=== PATIENT | female | born 1955 | race Caucasian/White ===

== ENCOUNTER 2020-07-04 15:02 | Outpatient (CLI) | payer MEDICARE, SELFPAY ==
--- NOTE | ~2020-07-04 | XR_ITS ---
EXAMINATION: XR knee LT 3V DATE: 07/04/2020 16:19 INDICATION: Left knee pain. TECHNIQUE: 3 views of left knee were obtained. COMPARISON: None. FINDINGS: Bone alignment is normal. No fracture. There is mild tricompartmental osteoarthritis. No kn ee joint effusion. IMPRESSION: 1. Mild left knee osteoarthritis. Reviewed, dictated and finalized at location A.
--- NOTE | ~2020-07-04 | US_ITS ---
US venous doppler [facility] DATE: 07/04/2020 15:41 INDICATION: Leg pain TECHNIQUE: Real-time and color flow imaging and Doppler analysis of the veins of both lower extremiti es COMPARISON: None FINDINGS: The greater saphenous veins are patent. There is spontaneous and phasic flow and normal aug mentation and color flow signal and normal compression of the deep veins of both lower extremities. IMPRESSION: No evidence of deep venous thrombosis of either leg Reviewed, dictated and finalized at Location A. Reviewed, dictated and finalized at location A.
== END 2020-07-04 15:03 | disposition home or self-care (01) ==
PROVIDERS: PCP Family Medicine; Visit Provider Nurse Practitioner Family
DX: M17.12 Unilateral primary osteoarthritis, left knee (principal)
CPT/HCPCS: 73562; 93970

== ENCOUNTER 2020-08-09 15:01 | Inpatient (IN) | payer MEDICARE, SELFPAY ==
--- NOTE | ~2020-08-09 | CT_ITS ---
EXAMINATION: CT abdomen pelvis wo con EXAM DATE: 08/09/2020 12:59 INDICATION: Stabbing abdominal pain for several weeks. TECHNIQUE: Spiral CT of the abdomen and pelvis was performed without contrast. Axial, coronal and s agittal images were reviewed. The dose-length product (DLP) for this examination was 845.83 mGy-cm. The exposure was tailored according to patient size (auto mA exposure control), and iterative recons truction (ASIR) was used as additional dose reduction technique. There is no prior study for compari son. FINDINGS: The liver, spleen, adrenal glands and pancreas are unremarkable. There are cholecystectomy clips. Bilateral calyceal stones measuring up to 8 mm on the left, 6 mm on the right. The uterus i s not identified and has likely been surgically resected. The bladder is unremarkable. There is no retroperitoneal or pelvic lymphadenopathy. There are several small supraumbilical fat-containing he rnias. The appendix is normal. The stomach and small bowel are unremarkable. There is mild to moderate scat tered colonic diverticulosis. There is no adjacent inflammatory change to suggest diverticulitis. N o free intraperitoneal gas. The heart is normal in size. There are no pericardial or pleural effus ions. The lung bases are unremarkable. The bones are unremarkable. IMPRESSION: 1. Several small supraumbilical fat-containing hernias. 2. Bilateral nonobstructing calyceal stones. 3. Mild to moderate scattered colonic diverticulosis. Reviewed, dictated and finalized at location B.
--- NOTE | ~2020-08-09 | US_ITS ---
EXAMINATION: US renal BI DATE: 08/09/2020 17:09 INDICATION: Acute renal failure TECHNIQUE: Multiple grayscale and Doppler ultrasound images of the kidneys were obtained. COMPARISON: CT from today FINDINGS: The right kidney measures 11.2 x 4.6 x 5.3 cm. The left kidney measures 9.9 x 3.8 x 5.6 cm. The kidneys demonstrate normal parenchymal echogenicity. Nonobstructing stones are noted in the left kidney. There is no hydronephrosis. The bladder is incompletely distended. IMPRESSION: 1. No sonographic correlate for the patient's symptoms. 2. Nonobstructing left nephrolithiasis. Reviewed, dictated and finalized at location A.
--- NOTE | ~2020-08-09 | XR_ITS ---
EXAMINATION: XR chest 2V DATE: 08/09/2020 17:11 INDICATION: Sepsis, history of hypertension TECHNIQUE: PA and lateral views of the chest are obtained. COMPARISON: 03/31/2012 FINDINGS: The lungs are free of acute opacities. There is no pleural effusion or pneumothorax. The ca rdiomediastinal silhouette is normal. There is mild thoracic spondylosis. Cholecystectomy clips are n oted in the right upper quadrant. IMPRESSION: 1. No acute cardiopulmonary abnormality. Reviewed, dictated and finalized at location A.
[2020-08-09 12:47] LABS: Estimated Glomerular Filt Rate 10
[2020-08-09 12:47] LABS: Estimated Glomerular Filt Rate 10
[2020-08-09 14:11] LABS: Basophils Absolute Auto 0.1 K/mm3 (0.0-0.1); Basophils Percent Auto 0.9 % (0.2-1.2); Eosinophils Absolute Auto 0.2 K/mm3 (0-0.3); Eosinophils Percent Auto 1.5 % (0-4.4); Hematocrit 43.2 % (37.0-47.0); Hemoglobin 14.7 g/dL (12.0-15.0); Immature Granulocyte Absolute 0.06 K/mm3 (0.00-0.031); Immature Granulocyte Percent A 0.4 % (0-0.5); Lymphocytes Absolute Auto 4.88 K/mm3 (0.9-3.2); Lymphocytes Percent Auto 34.6 % (18.3-44.2); Mean Corpuscular Volume 88.2 fl (80-100); Mean Platelet Volume 10.1 fl (7.4-10.4); Monocytes Percent Auto 6.9 % (2.6-8.5); Neutrophils Absolute Auto 7.9 K/mm3 (1.3-6.7); Neutrophils Percent Auto 55.7 % (45.5-73.1); Platelet Count Result 337 k/mm3 (150-375); Red Cell Distribution Width 12.9 % (11.5-14.5); White Blood Count 14.1 K/mm3 (4.5-10.0)
[2020-08-09 14:26] LABS: Alanine Aminotransferase 26 U/L (4-35); Albumin Level 4.5 g/dL (3.5-5.1); Alkaline Phosphatase 54 U/L (38-126); Amylase 94 U/L (30-110); Anion Gap 16 mmol/L (8-16); Aspartate Amino Transferase 21 U/L (14-36); Bilirubin,Total 0.5 mg/dL (0.2-1.3); Blood Urea Nitrogen 50 mg/dL (7-17); Calcium 10.2 mg/dL (8.4-10.2); Carbon Dioxide 21 mmol/L (22-30); Chloride 100 mmol/L (98-107); Cholesterol 140 mg/dL (0-200); Estimated Glomerular Filt Rate 11; Glucose 117 mg/dL (65-105); HDL Direct 36 mg/dL; Lipase 280 U/L (23-300); Potassium 5.2 mmol/L (3.4-5.0); Sodium 137 mmol/L (137-145); Triglycerides 413 mg/dL (<150)
[2020-08-09 14:37] LABS: LDL Cholesterol Direct 53 mg/dL
--- NOTE | 2020-08-09 16:06 | ECG_ITS ---
Measurements Intervals [place] Rate: 83 P: 51 TN: 181 QRS: 25 QRSD: 76 T: 87 QT: 374 QTc: 441 Interpretive Statements SINUS RHYTHM CONSIDER ANTEROSEPTAL INFARCT, AGE INDETERMINATE NONSPECIFIC ST & T-WAVE ABNORMALITY- HIGH LATERAL LEADS ABNORMAL ECG Electronically Signed On 08-10-2020 6:49:50 CDT by Aston Philippe D.O.
--- NOTE | 2020-08-09 16:09 | ADMGEN ---
This patient, Arlen Lomeli, was admitted to 2 Medical Room 259-01. Patient/family oriented to hospital policies and general routines including ID bracelet, bed and alarms, visiting hours, pain management, procedures, bathroom and other care routines, personal items, smoking policy, room service/diet, and visiting hours. Valuables list has been completed. Information on how to activate the Rapid Response Team has been discussed. Patient/Family are encouraged to report perceived risks to care and to ask questions if they do not understand what they are told or what they should do.
[2020-08-09 16:37] VITALS: BP 118/67; PULSE 98; RESP 20; TEMP 35.9; O2SAT 97
[2020-08-09 16:51] LABS: Creatine Kinase 62 U/L (30-135)
[2020-08-09 17:00] LABS: Lactic Acid Reflex 4.6 mmol/L (0.7-2.1)
[2020-08-09] MEDS: HYDROcodone/acetaminophen (*CRX) 5-325 MG TABLET 1 TAB PO ×2 (17:59→23:48)
[2020-08-09] MEDS: SODIUM CHLORIDE 0.9% IV 1,000 ML 999 ML IV CONT (18:00)
--- NOTE | 2020-08-09 18:13 | PM.IMHP ---
H&P: HPI History of Present Illness Date/Time: 08/09/20 18:13 Chief complaint: ABD PAIN,R10.9,E78.2,E11.65,F41.9;Acute Renal Fail Narrative: Arlen Lomeli is a 65 year old female Who stated that she has been having some nausea on and off for about 2 weeks. The patient stated that she does have acid reflux and she tried Pepcid [id number] and that did not seem to help. The patient stated that she is not sure that she has been keeping her pills down she said that his and she takes her pills she they would come right back up and she would vomit them up. Patient stated she has not had any problems with her kidneys in the past. She does have chronic back pain and does occasionally take Aleve. However she stated she has not taken any leave recently. She said that nothing was helping her at home and she decided to see her primary care doctor today. Her white count was noted to be 14.1 today. Potassium was slightly high at 5.2. Creatinine 4.1 BUN 50. Her estimated GFR is 11. It looks like previous creatinine was 1.3. Her last known A1c was 6.0 her lactic was found to be 4.6 today. Patient was empirically started on Zosyn. Chest x-ray from today was read as no acute cardiopulmonary abnormality. Renal ultrasound was read as no sonographic correlation for the patient's symptoms. Nonobstructing left nephrolithiasis. Abdominal CT was read as several small super umbilical fat containing hernias bilateral nonobstructing calyceal stone. Pers-oh-nqeuzbzw scattered colonic diverticulosis. Patient was a direct admit from Dr. William Bardales is office. Patient has not had any scopes or had a GI specialist in the past. The patient also states that she has a very anxious person. Date of service 08/09/2020 Review of Systems Review of Systems: All systems reviewed & are unremarkable except as noted in HPI and below Constitutional: Constitutional: Reports as per HPI and Reports no additional constitutional complaints Eyes: Eyes: Reports as per HPI and Reports no additional eye complaints ENT: Reports system reviewed and no additional complaints, except as documented and Reports Normal hearing present Cardiovascular: Cardiovascular: Reports no additional cardiovascular complaints Respiratory: Respiratory: Reports no additional respiratory complaints and Reports no additional respiratory complaints Gastrointestinal: Gastrointestinal: Reports as per HPI and Reports no additional gastrointestinal complaints Musculoskeletal: Musculoskeletal: Reports no additional musculoskeletal complaints Integumentary/Breasts: Skin/Breast: Reports system reviewed and no additional complaints, except as docu and Reports as per HPI Neurologic: Reports system reviewed and no additional complaints, except as documented, Reports as per HPI and Reports Normal hearing present Psychiatric: Psychiatric: Reports no additional psychiatric complaints and Reports as per HPI Endocrine: Endocrine: Reports no additional endocrine complaints Hematologic/Lymphatic: Hematologic/Lymphatic: Reports no additional hematologic/lymphatic complaints Allergic/Immunologic: Allergic/Immunologic: Reports no additional allergic/immunologic complaints [facility] Past Medical History Medical History (Updated 08/09/20 @ 18:31 by Brittany Landa NP) Anxiety disorder, unspecified ARF (acute renal failure) on chronic Cervical radiculopathy Chronic right-sided low back pain with right-sided sciatica Essential (primary) hypertension Mixed hyperlipidemia Obesity (BMI 30.0-34.9) Type 2 diabetes mellitus with hyperglycemia Surgical History Surgical History (Updated 08/09/20 @ 18:22 by Brittany Landa NP) History of angioplasty of vein right leg History of appendectomy History of section, classical History of fusion of cervical spine History of partial hysterectomy History of tonsillectomy Hx of cholecystectomy Family History Family History (Updated 08/09/20 @ 18:25 by Rima
[2020-08-09 18:51] LABS: Glucose Point of Care 100 (65-105)
[2020-08-09] MEDS: SODIUM CHLORIDE 0.9% IV 1,000 ML 100 ML IV CONT (19:22)
[2020-08-09] MEDS: GABAPENTIN 300 MG CAPSULE PO (19:23)
[2020-08-09 19:37] LABS: Reflex Lactic Acid Yes or No Add Lactic
[2020-08-09 19:58] LABS: Add Urine Microscopic? YES; Appearance Urine Cloudy (Clear); Bacteria Urine Trace /hpf; Bilirubin Urine Negative (Negative); Blood Urine Negative (Negative); Color Urine Yellow (Yellow); Glucose Urine UA Negative (Negative); Ketones Urine Negative (Negative); Leukocyte Esterase Ur 1+ LEU/UL (NEGATIVE); Mucus Urine Rare /lpf; Nitrate Urine Negative (Negative); Protein Urine 3+ mg/dL (Negative); Specific Grav Ur 1.014 (1.001-1.035); Squamous Epithelial Cell Urine Many /hpf (Few); Urobilinogen Urine Negative mg/dL (<2.0); WBC Urine 31-50 /hpf (0-3)
[2020-08-09 20:00] VITALS: BP 125/74; PULSE 79; RESP 20; TEMP 36.6; O2SAT 96
[2020-08-09 20:09] LABS: Lactic Acid 2.3 mmol/L (0.7-2.1)
[2020-08-09 20:32] LABS: Sodium Urine Random 33 meq/L
[2020-08-09] MEDS: HEPARIN SODIUM 5,000 UNITS/ML VIAL 5000 UNITS SUB-Q (20:38)
[2020-08-09] MEDS: NICOTINE (*PBKC) 14 MG PATCH 1 PATCH TRANSDERM (20:39)
[2020-08-09] MEDS: FAMOTIDINE 20 MG/2 ML VIAL IV PUSH (20:39)
[2020-08-10] VITALS (7 sets, daily range): BP systolic 120–142; BP diastolic 64–91; PULSE 77–94; RESP 14–20; TEMP 36.4–36.9; O2SAT 96–100; BMI 34.5
[2020-08-10] MEDS: HEPARIN SODIUM 5,000 UNITS/ML VIAL 5000 UNITS SUB-Q ×3 (05:39→21:14)
[2020-08-10 06:22] LABS: Basophils Absolute Auto 0.1 K/mm3 (0.0-0.1); Basophils Percent Auto 0.9 % (0.2-1.2); Eosinophils Absolute Auto 0.2 K/mm3 (0-0.3); Eosinophils Percent Auto 2.1 % (0-4.4); Hematocrit 34.4 % (37.0-47.0); Hemoglobin 11.5 g/dL (12.0-15.0); Immature Granulocyte Absolute 0.02 K/mm3 (0.00-0.031); Immature Granulocyte Percent A 0.2 % (0-0.5); Lymphocytes Absolute Auto 5.74 K/mm3 (0.9-3.2); Lymphocytes Percent Auto 51.2 % (18.3-44.2); Mean Corpuscular HGB Conc 33.4 g/dl (32-36); Mean Corpuscular Hemoglobin 29.8 pg (26-34); Mean Corpuscular Volume 89.1 fl (80-100); Mean Platelet Volume 10.2 fl (7.4-10.4); Monocytes Absolute Auto 0.7 K/mm3 (0.1-0.6); Monocytes Percent Auto 6.1 % (2.6-8.5); Neutrophils Absolute Auto 4.4 K/mm3 (1.3-6.7); Neutrophils Percent Auto 39.5 % (45.5-73.1); Platelet Count Result 265 k/mm3 (150-375); Red Blood Count 3.86 M/mm3 (4.2-5.4); White Blood Count 11.2 K/mm3 (4.5-10.0)
[2020-08-10 06:38] LABS: Albumin Level 3.6 g/dL (3.5-5.1); Anion Gap 11 mmol/L (8-16); Blood Urea Nitrogen 50 mg/dL (7-17); Calcium 8.7 mg/dL (8.4-10.2); Carbon Dioxide 20 mmol/L (22-30); Chloride 104 mmol/L (98-107); Estimated Glomerular Filt Rate 13; Glucose 89 mg/dL (65-105); Magnesium 1.4 mg/dL (1.6-2.3); Phosphorus 5.3 mg/dL (2.5-4.5); Potassium 4.3 mmol/L (3.4-5.0); Sodium 135 mmol/L (137-145)
[2020-08-10] MEDS: SODIUM CHLORIDE 0.9% IV 1,000 ML 100 ML IV CONT ×2 (07:29→19:22)
[2020-08-10] MEDS: MAGNESIUM SULF 2 GM/WATER 50ML 2 GM/50 ML BAG IVPB (08:44)
[2020-08-10] MEDS: FAMOTIDINE 20 MG/2 ML VIAL IV PUSH ×2 (08:46→21:14)
[2020-08-10] MEDS: GABAPENTIN 300 MG CAPSULE PO ×3 (08:50→16:19)
[2020-08-10] MEDS: ROSUVASTATIN 10 MG TABLET 40 MG PO (08:50)
[2020-08-10] MEDS: DULoxetine HCL 60 MG CAPSULE.DR PO (08:50)
[2020-08-10] MEDS: METOPROLOL SUCCINATE EXT REL 100 MG TABCR 200 MG PO (08:50)
[2020-08-10 09:36] LABS: Glucose Point of Care 90 (65-105)
[2020-08-10 14:03] LABS: Glucose Point of Care 118 (65-105)
--- NOTE | 2020-08-10 14:08 | PM.IMPN ---
Progress Note: A&P Assessment and Plan (1) ARF (acute renal failure): Code(s): N17.9 - Acute kidney failure, unspecified Status: Acute Assessment and Plan: Patient directly admitted from PCP office due to elevated Cr on outpatient labs. Cr 4.3 yesterday, now improved to 3.6 today. Suspect related to dehydration from recent nausea and vomiting. Renal ultrasound shows no sonographic evidence to correlate for the patient's symptoms. Ultrasound shows nonobstructing left nephrolithiasis. Improving. Continue IV hydration and trend renal function. (2) UTI (urinary tract infection): Code(s): N39.0 - Urinary tract infection, site not specified Status: Suspected Assessment and Plan: Abnormal urinalysis. Patient is asymptomatic. She was empirically started on Zosyn for possible UTI. Will continue abx while awaiting urine and blood cultures. (3) Abdominal pain: Code(s): R10.9 - Unspecified abdominal pain Status: Acute Assessment and Plan: Patient reports diffuse stabbing abdominal pain x2 weeks. She reports she vomits after trying to eat or drink anything, even bland foods or just taking her medications. She denies having similar symptoms in the past. Differential includes gastritis, PUD, gastroparesis. Has never had colonoscopy. She is improving with zofran and pepcid. Continue these and appreciate GI consultation given duration of symptoms; could consider EGD either now or on outpatient basis if appropriate. (4) Anxiety disorder, unspecified: Code(s): F41.9 - Anxiety disorder, unspecified Status: Chronic Assessment and Plan: Stable. Continue home xanax. (5) Cervical radiculopathy: Code(s): M54.12 - Radiculopathy, cervical region Status: Chronic Assessment and Plan: Continue her home regimen with gabapentin and norco. (6) Mixed hyperlipidemia: Code(s): E78.2 - Mixed hyperlipidemia Status: Chronic Assessment and Plan: Continue home statin. (7) Type 2 diabetes mellitus with hyperglycemia: Qualifiers: Diabetes mellitus intermediate insulin use: without intermediate use Qualified Code(s): E11.65 - Type 2 diabetes mellitus with hyperglycemia Code(s): E11.65 - Type 2 diabetes mellitus with hyperglycemia Status: Acute Assessment and Plan: A1c 6.0. Metformin held due to renal function. Monitor with accu-cheks and adjust treatment as needed. (8) Essential (primary) hypertension: Code(s): I10 - Essential (primary) hypertension Status: Chronic Assessment and Plan: BP stable, continue home metoprolol. CHRISTIAN held due to renal function. Monitor BP and adjust treatment as needed. Subjective Date/time seen: 08/10/20 0930 Interval history: Ms. Lomeli is a 65yo F admitted for acute renal failure. She has had sharp/stabbing diffuse abdominal pain over the last 2 weeks with associated vomiting with practically any oral intake - food, liquids, even just medications. Has vomited almost daily x 2 weeks. She is feeling a bit improved and has not vomited now since arrival, would like to try eating today. She denies hematemesis, hematochezia or melena. Smoker, denies alcohol use in several months and no illicit substance use. Last BM was yesterday and loose, which she describes is chronic for her. She denies chest pain or shortness of breath. Review of Systems Review of Systems: All systems reviewed & are unremarkable except as noted in HPI and below Exam Narrative: Exam Narrative: General: Female resting comfortably sitting up in bed in no acute distress.
[2020-08-10] MEDS: HYDROcodone/acetaminophen (*CRX) 5-325 MG TABLET 1 TAB PO (16:17)
[2020-08-10 17:53] LABS: Lactic Acid Reflex 0.7 mmol/L (0.7-2.1)
[2020-08-10 18:52] LABS: Glucose Point of Care 102 (65-105)
[2020-08-10 21:19] LABS: Glucose Point of Care 110 (65-105)
[2020-08-11] VITALS (7 sets, daily range): BP systolic 120–147; BP diastolic 71–84; PULSE 70–84; RESP 14–16; TEMP 36.3–36.9; O2SAT 95–98
[2020-08-11] MEDS: SODIUM CHLORIDE 0.9% IV 1,000 ML 100 ML IV CONT ×2 (05:33→17:55)
[2020-08-11] MEDS: HEPARIN SODIUM 5,000 UNITS/ML VIAL 5000 UNITS SUB-Q ×3 (05:34→21:06)
[2020-08-11 06:05] LABS: Basophils Absolute Auto 0.1 K/mm3 (0.0-0.1); Basophils Percent Auto 1.1 % (0.2-1.2); Eosinophils Absolute Auto 0.2 K/mm3 (0-0.3); Eosinophils Percent Auto 2.6 % (0-4.4); Hematocrit 33.5 % (37.0-47.0); Hemoglobin 11.3 g/dL (12.0-15.0); Immature Granulocyte Absolute 0.03 K/mm3 (0.00-0.031); Immature Granulocyte Percent A 0.3 % (0-0.5); Lymphocytes Absolute Auto 3.44 K/mm3 (0.9-3.2); Mean Corpuscular HGB Conc 33.7 g/dl (32-36); Mean Corpuscular Hemoglobin 29.7 pg (26-34); Mean Corpuscular Volume 87.9 fl (80-100); Mean Platelet Volume 10.2 fl (7.4-10.4); Monocytes Absolute Auto 0.6 K/mm3 (0.1-0.6); Monocytes Percent Auto 7.3 % (2.6-8.5); Neutrophils Absolute Auto 4.4 K/mm3 (1.3-6.7); Neutrophils Percent Auto 49.7 % (45.5-73.1); Platelet Count Result 249 k/mm3 (150-375); Red Blood Count 3.81 M/mm3 (4.2-5.4); Red Cell Distribution Width 12.7 % (11.5-14.5); White Blood Count 8.8 K/mm3 (4.5-10.0)
[2020-08-11 06:29] LABS: Alanine Aminotransferase 16 U/L (4-35); Albumin Level 3.3 g/dL (3.5-5.1); Alkaline Phosphatase 40 U/L (38-126); Anion Gap 8 mmol/L (8-16); Aspartate Amino Transferase 20 U/L (14-36); Bilirubin,Total 0.4 mg/dL (0.2-1.3); Blood Urea Nitrogen 42 mg/dL (7-17); Calcium 8.7 mg/dL (8.4-10.2); Carbon Dioxide 20 mmol/L (22-30); Chloride 110 mmol/L (98-107); Estimated CRCL calculation 14 ml/min; Estimated Glomerular Filt Rate 13; Glucose 92 mg/dL (65-105); Potassium 4.4 mmol/L (3.4-5.0); Sodium 138 mmol/L (137-145)
[2020-08-11 08:07] LABS: Glucose Point of Care 96 (65-105)
[2020-08-11] MEDS: ROSUVASTATIN 10 MG TABLET 40 MG PO (09:04)
[2020-08-11] MEDS: HYDROcodone/acetaminophen (*CRX) 5-325 MG TABLET 1 TAB PO ×2 (09:04→21:17)
[2020-08-11] MEDS: DULoxetine HCL 60 MG CAPSULE.DR PO (09:04)
[2020-08-11] MEDS: GABAPENTIN 300 MG CAPSULE PO ×3 (09:04→16:37)
[2020-08-11] MEDS: FAMOTIDINE 20 MG/2 ML VIAL IV PUSH ×2 (09:05→21:06)
[2020-08-11] MEDS: METOPROLOL SUCCINATE EXT REL 100 MG TABCR 200 MG PO (09:06)
[2020-08-11] MEDS: NICOTINE (*PBKC) 14 MG PATCH 1 PATCH TRANSDERM (09:07)
--- NOTE | 2020-08-11 09:33 | WPDGICN ---
Assessment and Plan Assessment and plan (1) Abdominal pain: Code(s): R10.9 - Unspecified abdominal pain Status: Acute Assessment and Plan: Noticed mostly in the epigastric and mildly in the left lower quadrant. Initially suspect this may be related to urinary tract infection however because of epigastric location to the pain. EGD can be performed electively. Should patient remain hospitalized we will consider this early next week. Continuing patient on proton pump inhibitor peers prudent at the present time period (2) ARF (acute renal failure): Code(s): N17.9 - Acute kidney failure, unspecified Status: Acute Assessment and Plan: Patient has significant azotemia with marked elevation of serum creatinine identified. Need to consider this related to dehydration associated with her nausea vomiting and poor oral intake. Should this fail to improve underlying renal dysfunction will be evaluated. (3) UTI (urinary tract infection): Code(s): N39.0 - Urinary tract infection, site not specified Status: Suspected Assessment and Plan: Patient appears to have a urinary tract infection which may have precipitated her nausea vomiting. Currently on treatment of antibiotics this will be monitored. (4) Anxiety disorder, unspecified: Code(s): F41.9 - Anxiety disorder, unspecified Status: Chronic GI Consult Note Consult date/time: 08/11/20 09:33 HPI: Areln Lomeli is a 65 year old female I am asked to see because of abdominal pain associated with nausea vomiting. Patient states this is developed over the last 2 weeks. She states her abdomen is diffusely tender period and she has had significant nausea vomiting. Upon presenting emergency room was found to have significant azotemia with elevated creatinine. She also was found to have a urinary tract infection. She states the nausea vomiting is improved since admission but she continued to have modest tenderness that is improving in the epigastric area. Patient has a past medical history of anxiety disorders well as diabetes. Review of Systems Review of Systems: All systems reviewed & are unremarkable except as noted in HPI and below PMFSH Past Medical History Medical History Anxiety disorder, unspecified ARF (acute renal failure) on chronic Cervical radiculopathy Chronic right-sided low back pain with right-sided sciatica Essential (primary) hypertension Mixed hyperlipidemia Obesity (BMI 30.0-34.9) Type 2 diabetes mellitus with hyperglycemia Surgical History Surgical History History of angioplasty of vein right leg History of appendectomy History of section, classical History of fusion of cervical spine History of partial hysterectomy History of tonsillectomy Hx of cholecystectomy Family History Family History (Updated 08/09/20 @ 18:25 by Brittany Landa NP) Father Hypertension Cerebrovascular accident Mother Hypertension Cerebrovascular accident Sibling Cancer Social History Social History (Updated 08/09/20 @ 18:25 by Brittany Landa NP) Social History: the patient told me that she smokes every day. She is to [place] who is her durable power insurance defense attorney for healthcare. She has 2 children. She is on disability. She stated that she wants to be a DNR we had long discussion about what a DNR is in again she reiterated that she wants to be a DNR. The patient continues to smoke 1 pack a cigarettes a day for many years. She does not drink any alcohol. She does not use any illicit drugs or marijuana. Smoking status: Current every day smoker Second hand tobacco smoke exposure: No Alcohol intake: current Drinks per week: 1 Substance use type: marijuana Other substance usage details: Medical Marijuana edibles Gender identity (if verbalized by the patient): Female Sexua
--- NOTE | 2020-08-11 09:54 | PM.IMPN ---
Progress Note: A&P Assessment and Plan (1) ARF (acute renal failure): Qualifiers: Acute renal failure type: unspecified Qualified Code(s): N17.9 - Acute kidney failure, unspecified Code(s): N17.9 - Acute kidney failure, unspecified Status: Acute Assessment and Plan: Patient directly admitted from PCP office due to elevated Cr on outpatient labs. Cr 4.3 on arrival, improved to 3.6 but unfortunately no further improvement in renal function today. Unsure of chronicity without recent labs for comparison. Cr in 11/2018 was 1.3. Suspect in part related to dehydration from recent nausea and vomiting, could be superimposed on undiagnosed chronic kidney disease. Renal ultrasound shows no sonographic evidence to correlate for the patient's symptoms. Ultrasound shows nonobstructing left nephrolithiasis. Continue IV hydration for now and trend renal function. With Cr still at 3.6 this morning, will appreciate nephrology consultation in this setting. (2) UTI (urinary tract infection): Qualifiers: Urinary tract infection type: acute cystitis Hematuria presence: without hematuria Qualified Code(s): N30.00 - Acute cystitis without hematuria Code(s): N39.0 - Urinary tract infection, site not specified Status: Ruled-out Assessment and Plan: Abnormal urinalysis. Patient is asymptomatic. She was empirically started on Zosyn for possible UTI. Urine culture does not identify any pathogens and the patient is asymptomatic thus will discontinue antibiotics at this time. (3) Abdominal pain: Qualifiers: Abdominal location: periumbilical Qualified Code(s): R10.33 - Periumbilical pain Code(s): R10.9 - Unspecified abdominal pain Status: Acute Assessment and Plan: Patient reports diffuse stabbing abdominal pain x2 weeks. She reports she vomits after trying to eat or drink anything, even bland foods or just taking her medications. She denies having similar symptoms in the past. Differential includes gastritis, PUD, gastroparesis. Has never had colonoscopy. Continue zofran and pepcid. Appreciate GI consultation given duration of symptoms. (4) Supraumbilical hernia: Code(s): K43.9 - Ventral hernia without obstruction or gangrene Status: Chronic Assessment and Plan: Today patient localizes her pain in her periumbilical region with point tenderness to palpation. CT abdomen shows several small fat-containing supraumbilical hernias; do not appear to be strangulated or causing obstruction at this time. Given her history of incarcerated umbilical hernia requiring repair 10/22/2010, she may be appropriate to follow up with general surgery outpatient. (5) Anxiety disorder, unspecified: Qualifiers: Anxiety disorder type: unspecified anxiety disorder Qualified Code(s): F41.9 - Anxiety disorder, unspecified Code(s): F41.9 - Anxiety disorder, unspecified Status: Chronic Assessment and Plan: Stable. Continue home xanax. (6) Cervical radiculopathy: Code(s): M54.12 - Radiculopathy, cervical region Status: Chronic Assessment and Plan: Continue her home regimen with gabapentin and norco. (7) Mixed hyperlipidemia: Code(s): E78.2 - Mixed hyperlipidemia Status: Chronic Assessment and Plan: Continue home statin. (8) Type 2 diabetes mellitus with hyperglycemia: Qualifiers: Diabetes mellitus mcfp insulin use: without mcfp use Qualified Code(s): E11.65 - Type 2 diabetes mellitus with hyperglycemia Code(s): E11.65 - Type 2 diabetes mellitus with hyperglycemia Status: Acut
--- NOTE | 2020-08-11 11:11 | PM.CNNEP ---
Assessment and Plan Assessment and plan (1) ARF (acute renal failure): Qualifiers: Acute renal failure type: unspecified Qualified Code(s): N17.9 - Acute kidney failure, unspecified Code(s): N17.9 - Acute kidney failure, unspecified Status: Acute Assessment and Plan: Arlen has acute kidney injury. She has had nausea and vomiting and has been unable to keep anything down for the last 2 and half weeks. She is likely dehydrated. She is getting some IV fluids now. Her nausea is better. There might be some small chance that her nausea and vomiting was uremic and that this is chronic kidney disease and so we will have to watch how her creatinine behaves with the fluids as we rehydrate her. Her ultrasound did not show small scarred kidneys or much echogenicity so I think this is a little bit less likely. She may have some underlying chronic kidney disease as well as her creatinine was not completely normal back in November of 2018 but it is unclear what her condition was when that was drawn. The etiology of her chronic kidney disease would be diabetes hypertension and vascular disease most likely. If the creatinine does not return to normal we will do evaluation for other causes of chronic kidney disease. At this point continuing IV fluids is prudent. She will continue her rosuvastatin and her treatment of diabetes and hypertension. (2) Nausea and vomiting: Code(s): R11.2 - Nausea with vomiting, unspecified Status: Acute (3) Essential (primary) hypertension: Code(s): I10 - Essential (primary) hypertension Status: Chronic Assessment and Plan: Blood pressure is under good control (4) Type 2 diabetes mellitus with hyperglycemia: Qualifiers: Diabetes mellitus longterm insulin use: without intermediate manager use Qualified Code(s): E11.65 - Type 2 diabetes mellitus with hyperglycemia Code(s): E11.65 - Type 2 diabetes mellitus with hyperglycemia Status: Acute Assessment and Plan: on Accu-Cheks and sliding-scale insulin (5) Mixed hyperlipidemia: Code(s): E78.2 - Mixed hyperlipidemia Status: Chronic Assessment and Plan: on rosuvastatin (6) Nephrolithiasis: Code(s): N20.0 - Calculus of kidney Status: Acute Assessment and Plan: she will need evaluation for this but this can wait till she is an outpatient. History of Present Illness Reason for Consult Consult date: 08/11/20 Chief Complaint Chief complaint: ABD PAIN,R10.9,E78.2,E11.65,F41.9;Acute Renal Fail History of Present Illness Narrative: Arlen is a very pleasant 65-year-old lady who has diabetes, hypertension, kidney stones, chronic cigarette abuse, edema, neuropathy, and hyperlipidemia. The patient says that she was well until about 2 and half weeks ago when she started having nausea and vomiting. She had no blood in her vomit and no blood in her stools. She did not have diarrhea. She had no fevers or chills. She thought she just had the flu. Her tried to get her to come to the hospital several times during this time. And finally she went to see Dr. Abraham a couple of days before admission. He richie some blood in found that her creatinine was elevated so called her up in told her to come over to the hospital. In the ER she was evaluated and her creatinine was still high. She was felt to be dehydrated. She was given some IV fluids and admitted. She had some renal evaluation including an ultrasound which was unremarkable and with fluids she is feeling better but her creatinine has not come down very much so renal consultation was requested. The patient denies any bloody urine. She has no hemoptysis or epistaxis. No skin rash. No unusual joint pains other than large joints. No sores in her mouth or her loss. She has had hypertension for many years. It is been pretty well controlled. She has had diabetes for many ye
[2020-08-11 11:44] LABS: Creatine Kinase 63 U/L (30-135)
[2020-08-11 12:33] LABS: Glucose Point of Care 190 (65-105)
[2020-08-11 16:52] LABS: Glucose Point of Care 109 (65-105)
[2020-08-11 20:57] LABS: Creatinine Urine 37.6 mg/dL; Total Protein Urine Random 66 mg/dL
[2020-08-11 20:59] LABS: Sodium Urine Random 87 meq/L
[2020-08-11 21:30] LABS: Glucose Point of Care 118 (65-105)
[2020-08-12] VITALS (7 sets, daily range): BP systolic 118–160; BP diastolic 60–82; PULSE 70–83; RESP 14–18; TEMP 36.1–37.1; O2SAT 95–99
[2020-08-12] MEDS: SODIUM CHLORIDE 0.9% IV 1,000 ML 100 ML IV CONT ×2 (03:33→13:34)
[2020-08-12] MEDS: HEPARIN SODIUM 5,000 UNITS/ML VIAL 5000 UNITS SUB-Q ×2 (05:31→13:34)
[2020-08-12 07:07] LABS: Albumin Level 3.1 g/dL (3.5-5.1); Anion Gap 7 mmol/L (8-16); Blood Urea Nitrogen 31 mg/dL (7-17); Calcium 8.5 mg/dL (8.4-10.2); Carbon Dioxide 20 mmol/L (22-30); Chloride 113 mmol/L (98-107); Estimated CRCL calculation 16 ml/min; Estimated Glomerular Filt Rate 16; Glucose 97 mg/dL (65-105); Magnesium 1.9 mg/dL (1.6-2.3); Potassium 4.2 mmol/L (3.4-5.0); Sodium 140 mmol/L (137-145)
[2020-08-12 07:59] LABS: Glucose Point of Care 95 (65-105)
[2020-08-12] MEDS: ROSUVASTATIN 10 MG TABLET 40 MG PO (08:10)
[2020-08-12] MEDS: NICOTINE (*PBKC) 14 MG PATCH 1 PATCH TRANSDERM (08:11)
[2020-08-12] MEDS: FAMOTIDINE 20 MG/2 ML VIAL IV PUSH ×2 (08:11→20:05)
[2020-08-12] MEDS: GABAPENTIN 300 MG CAPSULE PO ×3 (08:11→16:55)
[2020-08-12] MEDS: DULoxetine HCL 60 MG CAPSULE.DR PO (08:11)
[2020-08-12] MEDS: METOPROLOL SUCCINATE EXT REL 100 MG TABCR 200 MG PO (08:12)
--- NOTE | 2020-08-12 08:54 | WPDGIPROGNO ---
Progress Note: A&P Additional Plan Patient much more comfortable today. Abdominal pain is improving. She continues to have some suprapubic tenderness. She is tolerating liquids with no additional nausea vomiting reported. Physical exam reveals patient to be alert. Comfortable at rest she is anicteric. Lungs are clear. Heart without murmur. Abdomen bowel sounds present soft minimal epigastric tenderness some suprapubic tenderness remains. Impression 1. Nausea vomiting now resolved. Likely related to azotemia. Cannot exclude a intra-abdominal process an EGD will be performed in tomorrow because of epigastric pain. 2. Epigastric pain improved greatly overnight. Patient remains on proton pump inhibitor. Azotemia. 3. Urinary tract infection. 4. Acute renal insufficiency. May be related to dehydration. Although uremia could contribute to her nausea and vomiting. Subjective Date/time seen: 08/12/20 08:54 Objective Data Vital Signs Vital Signs: Vital Signs - 24 hr 08/11/20 09:06 08/11/20 09:55 08/11/20 14:00 Temperature 97.6 F 97.5 F L Pulse Rate 70 77 73 Respiratory Rate 14 15 Blood Pressure 135/72 120/71 Pulse Oximetry 98 95 08/11/20 18:00 08/11/20 22:10 08/12/20 02:22 Temperature 98.0 F 98.4 F 98.2 F Pulse Rate 84 83 76 Respiratory Rate 15 16 16 Blood Pressure 147/77 H 140/81 144/75 H Pulse Oximetry 98 98 97 08/12/20 06:00 08/12/20 08:12 Temperature 97.0 F L Pulse Rate 82 70 Respiratory Rate 18 Blood Pressure 141/76 H Pulse Oximetry 97 Intake/Output Intake/Output: Intake & Output 08/09/20 08/10/20 08/11/20 08/12/20 23:59 23:59 23:59 23:59 Intake Total 1170 3690 3470 1450 Output Total 1750 2950 1250 Balance 1170 1940 520 200 Meds/Results Medications: Active Medications Generic Name Dose Route Start Last Admin Trade Name Freq PRN Reason Stop Dose Admin Acetaminophen 650 mg 08/09/20 15:57 Acetaminophen 325 Mg Tablet PO Q4H PRN Mild Pain (1-3) or Fever Hydrocodone Bitart/Acetaminophen 1 tab 08/09/20 19:25 08/11/20 21:17 Hydrocodone/Acetaminophen (*Crx) 5-325 Mg Tablet PO 1 tab Q6H PRN Administration Pain 4-10 Alprazolam 1 mg 08/09/20 16:47 Alprazolam (*Crx) 0.5 Mg Tablet PO TID PRN anxiety Dextrose 12.5 gm 08/09/20 16:01 Dextrose 50% 25 Gm/50 Ml Syringe IV PUSH PRN PRN Hypoglycemia Protocol Duloxetine HCl 60 mg 08/10/20 09:00 08/12/20 08:11 Duloxetine Hcl 60 Mg Capsule.Dr PO 60 mg DAILY VAHID Administration Famotidine 20 mg 08/09/20 21:00 08/12/20 08:11 Famotidine 20 Mg/2 Ml Vial IV PUSH 20 mg Q12HR VAHID Administration Gabapentin 300 mg 08/09/20 17:00 08/12/20 08:11 Gabapentin 300 Mg Capsule PO 300 mg TID VAHID Administration Glucagon 1 mg 08/09/20 16:01 Glucagon For Inj 1 Mg Vial IM PRN PRN Hypoglycemia Protocol Glucose 15 gm 08/09/20 16:01 Glucose Oral Gel 15 Gm Of Glucse In 37.5 Gm Tube PO PRN PRN Hypoglycemia Protocol Heparin Sodium (Porcine) 5,000 units 08/09/20 22:00 08/12/20 05:31 Heparin Sodium 5,000 Units/Ml Vial SUB-Q 5,000 units Q8HR VAHID Administration Sodium Chloride 1,000 mls @ 100 mls/hr 08/09/20 15:55 08/12/20 03:33 Normal Saline Iv IV CONT 100 mls/hr .Q10H VAHID Administration Dextrose 1,000 mls @ 100 mls/hr 08/09/20 16:01 Dextrose 5% 1,000 Ml IVPB PRN PRN Hypoglycemia Protocol Insulin Aspart 2 - 5 units 08/09/20 17:00 08/12/20 08:08 Insulin Aspart (*Bkc) 100 Units/Ml SUB-Q Not Given TIDWM VAHID Protocol Metoprolol Succinate 200 mg 08/10/20 09:00 08/12/20 08:12 Metoprolol Succinate Ext Rel 100 Mg Tabcr PO 200 mg DAILY VAHID Administration Nicotine 1 patch 08/10/20 09:00 08/12/20 08:11 Nicotine (*Pbkc) 14 Mg Patch TRANSDERM 1 patch QAM VAHID Administration Ondansetron HCl 4 mg 08/09/20 18:13 Ondansetron Inj 4 Mg/2 Ml Vial IV PUSH
--- NOTE | 2020-08-12 09:57 | PM.PNNEP ---
Progress Note: A&P Assessment and Plan (1) ARF (acute renal failure): Qualifiers: Acute renal failure type: unspecified Qualified Code(s): N17.9 - Acute kidney failure, unspecified Code(s): N17.9 - Acute kidney failure, unspecified Status: Acute Assessment and Plan: Arlen has acute kidney injury. no more nausea. She is getting some IV fluids now. Eating better. Her creatinine has come down to 3.0 will continue fluids 1 more day she probably has underlying chronic kidney disease as well. This does not seem to be severe as her renal ultrasound was normal. She does have some protein in the urine so probably has a mixture of diabetic and hypertensive kidney disease. Because have her peripheral vascular disease that we know about she probably has some of this in her kidneys as well. Will check other possibilities including glomerulonephritis and interstitial nephritis. (2) Nausea and vomiting: Code(s): R11.2 - Nausea with vomiting, unspecified Status: Acute (3) Essential (primary) hypertension: Code(s): I10 - Essential (primary) hypertension Status: Chronic Assessment and Plan: Blood pressure is under good control (4) Type 2 diabetes mellitus with hyperglycemia: Qualifiers: Diabetes mellitus terminal gauger supervisor insulin use: without terminal gauger supervisor use Qualified Code(s): E11.65 - Type 2 diabetes mellitus with hyperglycemia Code(s): E11.65 - Type 2 diabetes mellitus with hyperglycemia Status: Acute Assessment and Plan: on Accu-Cheks and sliding-scale insulin (5) Mixed hyperlipidemia: Code(s): E78.2 - Mixed hyperlipidemia Status: Chronic Assessment and Plan: on rosuvastatin (6) Nephrolithiasis: Code(s): N20.0 - Calculus of kidney Status: Acute Assessment and Plan: she will need evaluation for this but this can wait till she is an outpatient. Subjective Date/time seen: 08/12/20 09:57 Interval history: Arlen Is feeling better. No chest pain or shortness of breath eating well Review of Systems Cardiovascular: Cardiovascular: Reports no additional cardiovascular complaints Respiratory: Respiratory: Reports no additional respiratory complaints Gastrointestinal: Gastrointestinal: Reports no additional gastrointestinal complaints Genitourinary: Genitourinary: Reports no additional female genitourinary complaints Exam Narrative: Exam Narrative: WDWN in NAD skin no rash head ncat lungs clear cor reg no rub abd BS+ nontender and soft ext no edema. Objective Data Vital Signs Vital Signs: Vital Signs - 24 hr 08/11/20 14:00 08/11/20 18:00 08/11/20 22:10 Temperature 36.4 C L 36.7 C 36.9 C Pulse Rate 73 84 83 Respiratory Rate 15 15 16 Blood Pressure 120/71 147/77 H 140/81 Pulse Oximetry 95 98 98 08/12/20 02:22 08/12/20 06:00 08/12/20 08:12 Temperature 36.8 C 36.1 C L Pulse Rate 76 82 70 Respiratory Rate 16 18 Blood Pressure 144/75 H 141/76 H Pulse Oximetry 97 97 Intake/Output Intake/Output: Intake & Output 08/09/20 08/10/20 08/11/20 08/12/20 23:59 23:59 23:59 23:59 Intake Total 1170 3690 3470 1690 Output Total 1750 2950 1250 Balance 1170 1940 520 440 Meds/Results Medications: Active Medications Generic Name Dose Route Start Last Admin Trade Name Freq PRN Reason Stop Dose Admin Acetaminophen 650 mg 08/09/20 15:57 Acetaminophen 325 Mg Tablet PO Q4H PRN Mild Pain (1-3) or Fever Hydrocodone Bitart/Acetaminophen 1 tab 08/09/20 19:25 08/11/20 21:17 Hydrocodone/Acetaminophen (*Crx) 5-325 Mg Tablet PO 1 tab Q6H PRN Administration Pain 4-10 Alprazolam 1 mg 08/09/20 16:47 Alprazolam (*Crx) 0.5 Mg Tablet PO TID PRN anxiety Dextrose 12.5 gm 08/09/20 16:01 Dextrose 50% 25 Gm/50 Ml Syringe IV PUSH PRN PRN Hypoglycemia Protocol Duloxetine HCl 60 mg 08/10/20 0
[2020-08-12 11:25] LABS: Complement C3 94 mg/dL (88-165)
--- NOTE | 2020-08-12 12:47 | PM.IMPN ---
Progress Note: A&P Assessment and Plan (1) ARF (acute renal failure): Qualifiers: Acute renal failure type: unspecified Qualified Code(s): N17.9 - Acute kidney failure, unspecified Code(s): N17.9 - Acute kidney failure, unspecified Status: Acute Assessment and Plan: Patient directly admitted from PCP office due to elevated Cr on outpatient labs. Cr 4.3 on arrival, improved to 3.0 with some IV fluids. Unsure of chronicity without recent labs for comparison. Cr in 11/2018 was 1.3. Suspect in part related to dehydration from recent nausea and vomiting, could be superimposed on undiagnosed chronic kidney disease. Renal ultrasound shows no sonographic evidence to correlate for the patient's symptoms. Ultrasound shows nonobstructing left nephrolithiasis. Continue IV hydration for now and trend renal function. Appreciate Dr Ernandez's input. (2) UTI (urinary tract infection): Qualifiers: Urinary tract infection type: acute cystitis Hematuria presence: without hematuria Qualified Code(s): N30.00 - Acute cystitis without hematuria Code(s): N39.0 - Urinary tract infection, site not specified Status: Ruled-out Assessment and Plan: Abnormal urinalysis. Patient is asymptomatic. She was empirically started on Zosyn for possible UTI. Urine culture does not identify any pathogens and the patient is asymptomatic thus antibiotics were discontinued. (3) Abdominal pain: Qualifiers: Abdominal location: periumbilical Qualified Code(s): R10.33 - Periumbilical pain Code(s): R10.9 - Unspecified abdominal pain Status: Acute Assessment and Plan: Patient reports diffuse stabbing abdominal pain x2 weeks. She reports she vomits after trying to eat or drink anything, even bland foods or just taking her medications. No vomiting during this admission. She denies having similar symptoms in the past. Differential includes gastritis, PUD, gastroparesis. Has never had colonoscopy. Continue zofran and pepcid. Appreciate GI consultation given duration of symptoms. Plan is for EGD tomorrow. (4) Supraumbilical hernia: Code(s): K43.9 - Ventral hernia without obstruction or gangrene Status: Chronic Assessment and Plan: Today patient localizes her pain in her periumbilical region with point tenderness to palpation. CT abdomen shows several small fat-containing supraumbilical hernias; do not appear to be strangulated or causing obstruction at this time. Given her history of incarcerated umbilical hernia requiring repair 10/22/2010, she may be appropriate to follow up with general surgery outpatient. (5) Anxiety disorder, unspecified: Qualifiers: Anxiety disorder type: unspecified anxiety disorder Qualified Code(s): F41.9 - Anxiety disorder, unspecified Code(s): F41.9 - Anxiety disorder, unspecified Status: Chronic Assessment and Plan: Stable. Continue home xanax. (6) Cervical radiculopathy: Code(s): M54.12 - Radiculopathy, cervical region Status: Chronic Assessment and Plan: Continue her home regimen with gabapentin and norco. (7) Mixed hyperlipidemia: Code(s): E78.2 - Mixed hyperlipidemia Status: Chronic Assessment and Plan: Continue home statin. (8) Type 2 diabetes mellitus with hyperglycemia: Qualifiers: Diabetes mellitus alf insulin use: without alf use Qualified Code(s): E11.65 - Type 2 diabetes mellitus with hyperglycemia Code(s): E11.65 - Type 2 diabetes mellitus with hyperglycemia Status: Acute Assessment and Plan: A1c 6.0. Metformin
[2020-08-12 14:09] LABS: Glucose Point of Care 107 (65-105)
[2020-08-12 16:28] LABS: Glucose Point of Care 105 (65-105)
[2020-08-12] MEDS: HYDROcodone/acetaminophen (*CRX) 5-325 MG TABLET 1 TAB PO (20:04)
[2020-08-12 21:10] LABS: Glucose Point of Care 116 (65-105)
[2020-08-13] VITALS (11 sets, daily range): BP systolic 129–188; BP diastolic 78–101; PULSE 70–88; RESP 15–20; TEMP 36.2–37.1; O2SAT 92–99
[2020-08-13] MEDS: SODIUM CHLORIDE 0.9% IV 1,000 ML 100 ML IV CONT ×3 (00:13→20:29)
[2020-08-13 05:09] LABS: Erythrocyte Sedimentation Rate 3 mm/hr (0-20)
[2020-08-13 05:42] LABS: Hemoglobin 10.9 g/dL (12.0-15.0)
[2020-08-13 06:14] LABS: Albumin Level 3.1 g/dL (3.5-5.1); Anion Gap 7 mmol/L (8-16); Blood Urea Nitrogen 29 mg/dL (7-17); Calcium 8.5 mg/dL (8.4-10.2); Carbon Dioxide 19 mmol/L (22-30); Chloride 112 mmol/L (98-107); Estimated CRCL calculation 20 ml/min; Estimated Glomerular Filt Rate 19; Glucose 107 mg/dL (65-105); Phosphorus 4.3 mg/dL (2.5-4.5); Potassium 4.2 mmol/L (3.4-5.0); Sodium 138 mmol/L (137-145)
[2020-08-13 06:56] LABS: Magnesium 1.7 mg/dL (1.6-2.3)
[2020-08-13 07:44] LABS: Glucose Point of Care 113 (65-105)
--- NOTE | 2020-08-13 09:04 | PC.NURSE ---
The patient requested to know what time her EGD was going to be performed. I called the nurse from endoscopy and she stated that she did not have a time for the patient yet. I also asked the nurse what medications she would like me to give to the patient this morning and she requested that I give the patient her 0900 dose of Metoprolol and hold the other medications until she is back from the procedure.
[2020-08-13] MEDS: METOPROLOL SUCCINATE EXT REL 100 MG TABCR 200 MG PO (09:08)
[2020-08-13] MEDS: NICOTINE (*PBKC) 14 MG PATCH 1 PATCH TRANSDERM (09:09)
[2020-08-13] MEDS: ACETAMINOPHEN 325 MG TABLET 650 MG PO (09:23)
--- NOTE | 2020-08-13 09:40 | PM.IMPN ---
Progress Note: A&P Assessment and Plan (1) ARF (acute renal failure): Qualifiers: Acute renal failure type: unspecified Qualified Code(s): N17.9 - Acute kidney failure, unspecified Code(s): N17.9 - Acute kidney failure, unspecified Status: Acute Assessment and Plan: Patient directly admitted from PCP office due to elevated Cr on outpatient labs. Cr 4.3 on arrival, improved to 2.5 with some IV fluids. Unsure of chronicity without recent labs for comparison. Cr in 11/2018 was 1.3. Suspect now in part related to dehydration from recent nausea and vomiting, could be superimposed on undiagnosed chronic kidney disease. Renal ultrasound shows no sonographic evidence to correlate for the patient's symptoms. Ultrasound shows nonobstructing left nephrolithiasis. Continue IV hydration for now and trend renal function. Appreciate nephrology input. (2) UTI (urinary tract infection): Qualifiers: Urinary tract infection type: acute cystitis Hematuria presence: without hematuria Qualified Code(s): N30.00 - Acute cystitis without hematuria Code(s): N39.0 - Urinary tract infection, site not specified Status: Ruled-out Assessment and Plan: Abnormal urinalysis. Patient is asymptomatic. She was empirically started on Zosyn for possible UTI. Urine culture does not identify any pathogens and the patient is asymptomatic thus antibiotics were discontinued. (3) Abdominal pain: Qualifiers: Abdominal location: periumbilical Qualified Code(s): R10.33 - Periumbilical pain Code(s): R10.9 - Unspecified abdominal pain Status: Acute Assessment and Plan: Patient reports diffuse stabbing abdominal pain x2 weeks. She reports she vomits after trying to eat or drink anything, even bland foods or just taking her medications. No vomiting during this admission. She denies having similar symptoms in the past. Suspect she could have been vomiting due to uremia and abdominal pain could be secondary to vomiting. Continue zofran and pepcid. Appreciate GI consultation given duration of symptoms. EGD with Dr Gutierrez today is unremarkable. (4) Supraumbilical hernia: Code(s): K43.9 - Ventral hernia without obstruction or gangrene Status: Chronic Assessment and Plan: Yesterday patient localized her pain in her periumbilical region with point tenderness to palpation. CT abdomen shows several small fat-containing supraumbilical hernias; do not appear to be strangulated or causing obstruction at this time. Given her history of incarcerated umbilical hernia requiring repair 10/22/2010, she may be appropriate to follow up with general surgery outpatient. (5) Anxiety disorder, unspecified: Qualifiers: Anxiety disorder type: unspecified anxiety disorder Qualified Code(s): F41.9 - Anxiety disorder, unspecified Code(s): F41.9 - Anxiety disorder, unspecified Status: Chronic Assessment and Plan: Stable. Continue home xanax. (6) Cervical radiculopathy: Code(s): M54.12 - Radiculopathy, cervical region Status: Chronic Assessment and Plan: Continue her home regimen with gabapentin and norco. (7) Mixed hyperlipidemia: Code(s): E78.2 - Mixed hyperlipidemia Status: Chronic Assessment and Plan: Continue home statin. (8) Type 2 diabetes mellitus with hyperglycemia: Qualifiers: Diabetes mellitus intermediate insulin use: without intermediate use Qualified Code(s): E11.65 - Type 2 diabetes mellitus with hyperglycemia Code(s): E11.65 - Type 2 diabetes mellitus with hyperglycemia Status: Acute
--- NOTE | 2020-08-13 10:00 | PC.NURSE ---
Report was given to KATIE Hill in endoscopy. All questions were answered. Liz stated that they would be ready for the patient in 30 minutes.
--- NOTE | 2020-08-13 10:55 | PC.NURSE ---
To GI Lab per mela, IV saline locked. Report given to KATIE Hill.
[2020-08-13 11:18] LABS: Glucose Point of Care 101 (65-105)
--- NOTE | 2020-08-13 11:19 | WPDANESEPPF ---
Anes - Initial Pre Proc Eval Procedure: Operation Date: 08/13/20 12:00 Proposed Procedures p Esophagogastroduodenoscopy - Tam Gutierrez MD Date/Time: 08/13/20 11:19 Surgeon: YESENIA Chaves Pre Op Diagnosis: ABD PAIN,R10.9,E78.2,E11.65,F41.9;Acute Renal Fail Patient Data Age: 65 Gender: F Height: 5 ft Weight: 80.2 kg Last Vital Signs Temp 37.1 C 08/13/20 10:00 Pulse 79 08/13/20 10:00 Resp 19 08/13/20 10:00 BP 172/90 H 08/13/20 10:00 Pulse Ox 97 08/13/20 10:00 Allergies Allergy/AdvReac Type Severity Reaction Status Date / Time latex Allergy Intermediate Redness of Verified 08/13/20 11:19 Skin Home Medications Medication Instructions Recorded Confirmed Type furosemide 20 mg tablet 20 mg PO QAM #90 tablet 11/21/19 08/09/20 Rx metformin 1,000 mg tablet 1,000 mg PO BID #180 tablet 11/21/19 08/09/20 Rx benazepril 10 mg tablet 10 mg PO DAILY #90 tablet 04/19/20 08/09/20 Rx gabapentin 300 mg capsule 300 mg PO TID #270 cap 04/19/20 08/09/20 Rx rosuvastatin 40 mg tablet 40 mg PO DAILY #90 tablet 04/19/20 08/09/20 Rx semaglutide 1 mg/dose (2 mg/1.5 1 mg SUB-Q WEEKLY #3 ml 04/20/20 08/09/20 Rx mL) subcutaneous pen injector metoprolol succinate 100 mg 200 mg PO DAILY #180 tablet 05/19/20 08/09/20 Rx tablet,extended release 24 hr alprazolam 1 mg tablet 1 mg PO TID PRN #90 tablet 06/05/20 08/09/20 Rx hydrocodone 5 mg-acetaminophen 325 1 tablet PO Q6H PRN #30 tablet 06/13/20 08/09/20 Rx mg tablet duloxetine 60 mg PO DAILY 08/09/20 08/09/20 History Laboratory Tests 08/12/20 08/12/20 08/12/20 06:38 10:41 11:55 Hgb Hct ESR 3 mm/hr mm/hr (0-20) Sodium Potassium Chloride Carbon Dioxide Anion Gap BUN Creatinine Estim Creat Clear Calc Estimated GFR Glucose POC Capillary Glucose 107 mg/dl mg/dl (65-105) Calcium Phosphorus Magnesium Albumin Complement C3 94 mg/dL mg/dL (88-165) Complement C4 29.3 mg/dL mg/dL (14.0-44.0) 08/12/20 08/12/20 08/13/20 16:25 21:02 05:15 Hgb Hct ESR Sodium 138 mmol/L mmol/L (137-145) Potassium 4.2 mmol/L mmol/L (3.4-5.0) Chloride 112 mmol/L H mmol/L (98-107) Carbon Dioxide 19 mmol/L L mmol/L (22-30) Anion Gap 7 mmol/L L mmol/L (8-16) BUN 29 mg/dL H mg/dL (7-17) Creatinine 2.50 mg/dL H mg/dL (0.7-1.0) Estim Creat Clear Calc 20 ml/min ml/min Estimated GFR 19 L (59 - ) Glucose 107 mg/dL H mg/dL (65-105) POC Capillary Glucose 105 mg/dl mg/dl 116 mg/dl H mg/dl (65-105) (65-105) Calcium 8.5 mg/dL mg/dL (8.4-10.2) Phosphorus 4.3 mg/dL mg/dL (2.5-4.5) Magnesium Albumin 3.1 g/dL L g/dL (3.5-5.1) Complement C3 Complement C4 08/13/20 08/13/20 08/13/20 05:15 05:15 07:41 Hgb 10.9 g/dL L g/dL (12.0-15.0) Hct 32.0 % L % (37.0-47.0) ESR Sodium Potassium Chloride Carbon Dioxide Anion Gap BUN Creatinine Estim Creat Clear Calc Estimated GFR Glucose POC Capillary Glucose 113 mg/dl H mg/dl (65-105) Calcium Phosphorus Magnesium 1.7 mg/dL mg/dL (1.6-2.3) Albumin Complement C3 Complement C4 08/13/20 11:13 Hgb Hct ESR Sodium Potassium Chloride Carbon Dioxide Anion Gap BUN Creatinine Estim Creat Clear Calc Estimated GFR Glucose POC Capillary Glucose
[2020-08-13] MEDS: LACTATED RINGERS 1,000 ML 150 ML IV CONT (11:28)
[2020-08-13 12:38] LABS: Glucose Point of Care 99 (65-105)
[2020-08-13] MEDS: DULoxetine HCL 60 MG CAPSULE.DR PO (13:10)
[2020-08-13] MEDS: FAMOTIDINE 20 MG/2 ML VIAL IV PUSH ×2 (13:10→20:29)
[2020-08-13] MEDS: GABAPENTIN 300 MG CAPSULE PO ×2 (13:10→16:24)
[2020-08-13] MEDS: ROSUVASTATIN 10 MG TABLET 40 MG PO (13:10)
[2020-08-13] MEDS: HYDROcodone/acetaminophen (*CRX) 5-325 MG TABLET 1 TAB PO (16:24)
[2020-08-13 16:26] LABS: Glucose Point of Care 216 (65-105)
[2020-08-13] MEDS: INSULIN ASPART (*BKC) 100 UNITS/ML SUB-Q (16:26)
--- NOTE | 2020-08-13 18:09 | PM.PNNEP ---
Progress Note: A&P Assessment and Plan (1) ARF (acute renal failure): Qualifiers: Acute renal failure type: unspecified Qualified Code(s): N17.9 - Acute kidney failure, unspecified Code(s): N17.9 - Acute kidney failure, unspecified Status: Acute Assessment and Plan: creatinine has been improving since asdmission still suspect some underlying CKD (from DM + HTN) but baseline creatinine unclear further testing pending follow trend (2) Nausea and vomiting: Code(s): R11.2 - Nausea with vomiting, unspecified Status: Acute Assessment and Plan: appears to be doing better likely playing a role with #1 s/p EGD (3) Essential (primary) hypertension: Code(s): I10 - Essential (primary) hypertension Status: Chronic Assessment and Plan: BP fluctuates to extremes follow trend of hemodynamics may need another agent assuming we cannot restart CHRISTIAN or ARB (4) Nephrolithiasis: Code(s): N20.0 - Calculus of kidney Status: Acute Assessment and Plan: she will need evaluation for this but this can wait till she is an outpatient (5) Type 2 diabetes mellitus with hyperglycemia: Qualifiers: Diabetes mellitus fpc insulin use: without watermaster use Qualified Code(s): E11.65 - Type 2 diabetes mellitus with hyperglycemia Code(s): E11.65 - Type 2 diabetes mellitus with hyperglycemia Status: Acute Assessment and Plan: follow accuchecks on sliding-scale insulin Will continue to follow. Subjective Date/time seen: 08/13/20 18:09 S/P EGD today which was unremarkable; happy to know kidney function is doing better but upset that she can get a clear answer as to the cause of her abdominal pain. Exam Narrative: Exam Narrative: General: WD/WN female in NAD Heart: normal S1 and S2; no rub Lungs: clear to auscultation Abdomen: soft, mild TTP, nondistended, positive bowel sounds Extremities: no cyanosis or clubbing; no edema Skin: warm and dry Objective Data Vital Signs Vital Signs: Vital Signs Temp Pulse Resp BP Pulse Ox 08/13/20 16:00 36.6 C 77 16 171/98 H 99 08/13/20 12:45 70 15 164/99 H 96 08/13/20 12:35 73 18 129/78 93 08/13/20 12:25 79 17 143/87 H 92 08/13/20 11:20 36.4 C 76 16 152/101 H 99 08/13/20 10:00 37.1 C 79 19 172/90 H 97 08/13/20 09:08 70 08/13/20 06:00 36.6 C 70 16 148/82 H 95 08/13/20 02:16 36.8 C 88 16 141/78 H 97 08/12/20 22:30 36.1 C L 79 16 151/82 H 95 Intake/Output Intake/Output: Intake & Output 08/10/20 08/11/20 08/12/20 08/13/20 23:59 23:59 23:59 23:59 Intake Total 3690 3470 4680 1990 Output Total 1750 2950 2400 3000 Balance 5726 824 4856 -1010 Meds/Results Medications: Active Medications Generic Name Dose Route Start Last Admin Trade Name Freq PRN Reason Stop Dose Admin Acetaminophen 650 mg 08/09/20 15:57 08/13/20 09:23 Acetaminophen 325 Mg Tablet PO 650 mg Q4H PRN Administration Mild Pain (1-3) or Fever Hydrocodone Bitart/Acetaminophen 1 tab 08/09/20 19:25 08/13/20 16:24 Hydrocodone/Acetaminophen (*Crx) 5-325 Mg Tablet PO 1 tab Q6H PRN Administration Pain 4-10 Alprazolam 1 mg 08/09/20 16:47 Alprazolam (*Crx) 0.5 Mg Tablet PO TID PRN anxiety Dextrose 12.5 gm 08/09/20 16:01 Dextrose 50% 25 Gm/50 Ml Syringe IV PUSH PRN PRN Hypoglycemia Protocol Duloxetine HCl 60 mg 08/10/20 09:00 08/13/20 13:10 Duloxetine Hcl 60 Mg Capsule.Dr PO 60 mg DAILY VAHID Administration Famotidine 20 mg 08/09/20 21:00 08/13/20 13:10 Famotidine 20 Mg/2 Ml Vial IV PUSH 20 mg Q12HR VAHID Administration Gabapentin 300 mg 08/09/20 17:00 08/13/20 16:24 Gabapentin 300 Mg Capsule PO 300 mg TID VAHID Administration Glucagon 1 mg 08/09/20 16:01 Glucagon For Inj 1 Mg Vial IM PRN PRN Hypoglycemia Protocol
[2020-08-13 20:38] LABS: Glucose Point of Care 99 (65-105)
[2020-08-14] VITALS (9 sets, daily range): BP systolic 126–196; BP diastolic 74–97; PULSE 77–93; RESP 18–20; TEMP 36.1–37.1; O2SAT 94–98
[2020-08-14] MEDS: HYDROcodone/acetaminophen (*CRX) 5-325 MG TABLET 1 TAB PO ×2 (04:51→20:58)
[2020-08-14 06:05] LABS: Basophils Absolute Auto 0.1 K/mm3 (0.0-0.1); Basophils Percent Auto 0.9 % (0.2-1.2); Eosinophils Absolute Auto 0.3 K/mm3 (0-0.3); Eosinophils Percent Auto 2.9 % (0-4.4); Hematocrit 34.1 % (37.0-47.0); Hemoglobin 11.5 g/dL (12.0-15.0); Immature Granulocyte Absolute 0.03 K/mm3 (0.00-0.031); Immature Granulocyte Percent A 0.3 % (0-0.5); Lymphocytes Percent Auto 33.2 % (18.3-44.2); Mean Corpuscular HGB Conc 33.7 g/dl (32-36); Mean Corpuscular Hemoglobin 29.8 pg (26-34); Mean Corpuscular Volume 88.3 fl (80-100); Mean Platelet Volume 10.1 fl (7.4-10.4); Monocytes Absolute Auto 0.7 K/mm3 (0.1-0.6); Monocytes Percent Auto 6.9 % (2.6-8.5); Neutrophils Absolute Auto 5.7 K/mm3 (1.3-6.7); Neutrophils Percent Auto 55.8 % (45.5-73.1); Platelet Count Result 238 k/mm3 (150-375); Red Blood Count 3.86 M/mm3 (4.2-5.4); White Blood Count 10.2 K/mm3 (4.5-10.0)
[2020-08-14 06:17] LABS: Anion Gap 9 mmol/L (8-16); Blood Urea Nitrogen 22 mg/dL (7-17); Calcium 8.7 mg/dL (8.4-10.2); Carbon Dioxide 19 mmol/L (22-30); Chloride 112 mmol/L (98-107); Estimated CRCL calculation 21 ml/min; Estimated Glomerular Filt Rate 21; Glucose 123 mg/dL (65-105); Magnesium 1.5 mg/dL (1.6-2.3); Sodium 140 mmol/L (137-145)
[2020-08-14] MEDS: SODIUM CHLORIDE 0.9% IV 1,000 ML 100 ML IV CONT ×2 (06:46→22:28)
[2020-08-14 07:28] LABS: Glucose Point of Care 104 (65-105)
--- NOTE | 2020-08-14 08:05 | WPDANESPN ---
Anes - Prog Note Post-Op Date/Time: 08/14/20 08:05 Cardiovascular status: normal Respiratory status: normal Airway patency: baseline Mental status: baseline Post-Op hydration status: normal Vital Signs: Last Vital Signs Temp 36.8 C 08/14/20 04:00 Pulse 79 08/14/20 04:00 Resp 20 08/14/20 04:00 BP 126/89 08/14/20 04:00 Pulse Ox 96 08/14/20 04:00 Pain Score (VAS): 0 I/O: Intake & Output 08/13/20 08/14/20 08/14/20 23:59 07:59 15:59 Intake Total 1640 1390 240 Output Total 1400 900 Balance 240 490 240 Laboratory Tests 08/14/20 05:43 08/14/20 05:43 08/13/20 08/13/20 08/13/20 11:13 11:17 12:35 WBC RBC Hgb Hct MCV MCH MCHC RDW Plt Count MPV Immature Gran % (Auto) Neut % (Auto) Lymph % (Auto) [place] % (Auto) Eos % (Auto) Baso % (Auto) Lymph # (Auto) [place] # (Auto) Eos # (Auto) Baso # (Auto) Abs Immat Gran (auto) Absolute Neuts (auto) Absolute Nucleated RBC Nucleated RBC % Sodium Potassium Chloride Carbon Dioxide Anion Gap BUN Creatinine Estim Creat Clear Calc Estimated GFR Glucose POC Capillary Glucose 101 99 Calcium Magnesium Ur [place] Interpret 24 hr Pending Free [place] & Lambda LC Pending 08/13/20 08/13/20 08/14/20 16:22 20:29 05:43 WBC 10.2 H RBC 3.86 L Hgb 11.5 L Hct 34.1 L MCV 88.3 MCH 29.8 MCHC 33.7 RDW 13.0 Plt Count 238 MPV 10.1 Immature Gran % (Auto) 0.3 Neut % (Auto) 55.8 Lymph % (Auto) 33.2 [place] % (Auto) 6.9 Eos % (Auto) 2.9 Baso % (Auto) 0.9 Lymph # (Auto) 3.40 H [place] # (Auto) 0.7 H Eos # (Auto) 0.3 Baso # (Auto) 0.1 Abs Immat Gran (auto) 0.03 Absolute Neuts (auto) 5.7 Absolute Nucleated RBC 0.0 Nucleated RBC % 0.0 Sodium Potassium Chloride Carbon Dioxide Anion Gap BUN Creatinine Estim Creat Clear Calc Estimated GFR Glucose POC Capillary Glucose 216 H 99 Calcium Magnesium Ur [place] Interpret 24 hr Free [place] & Lambda LC 08/14/20 08/14/20 05:43 07:23 WBC RBC Hgb Hct MCV MCH MCHC RDW Plt Count MPV Immature Gran % (Auto) Neut % (Auto) Lymph % (Auto) [place] % (Auto) Eos % (Auto) Baso % (Auto) Lymph # (Auto) [place] # (Auto) Eos # (Auto) Baso # (Auto) Abs Immat Gran (auto) Absolute Neuts (auto) Absolute Nucleated RBC Nucleated RBC % Sodium 140 Potassium 4.0 Chloride 112 H Carbon Dioxide 19 L Anion Gap 9 BUN 22 H Creatinine 2.30 H Estim Creat Clear Calc 21 Estimated GFR 21 L Glucose 123 H POC Capillary Glucose 104 Calcium 8.7 Magnesium 1.5 L Ur [place] Interpret 24 hr Free [place] & Lambda LC Post-procedural complaints: none Patient Feedback: Patient satisfied with anesthetic care.
[2020-08-14] MEDS: GABAPENTIN 300 MG CAPSULE PO ×3 (09:09→17:35)
[2020-08-14] MEDS: NICOTINE (*PBKC) 14 MG PATCH 1 PATCH TRANSDERM (09:09)
[2020-08-14] MEDS: DULoxetine HCL 60 MG CAPSULE.DR PO (09:09)
[2020-08-14] MEDS: METOPROLOL SUCCINATE EXT REL 100 MG TABCR 200 MG PO (09:09)
[2020-08-14] MEDS: FAMOTIDINE 20 MG/2 ML VIAL IV PUSH ×2 (09:09→20:53)
[2020-08-14] MEDS: ROSUVASTATIN 10 MG TABLET 40 MG PO (09:12)
--- NOTE | 2020-08-14 10:37 | PM.IMPN ---
Progress Note: A&P Assessment and Plan (1) ARF (acute renal failure): Qualifiers: Acute renal failure type: unspecified Qualified Code(s): N17.9 - Acute kidney failure, unspecified Code(s): N17.9 - Acute kidney failure, unspecified Status: Acute Assessment and Plan: ------Patient directly admitted from PCP office due to elevated Cr on outpatient labs. Cr 4.3 on arrival, improved to 2.3 with some IV fluids. Unsure of chronicity without recent labs for comparison. Cr in 11/2018 was 1.3. Suspect now in part related to dehydration from recent nausea and vomiting, could be superimposed on undiagnosed chronic kidney disease. Renal ultrasound shows no sonographic evidence to correlate for the patient's symptoms. she does have pretty uncontrolled hypertension. Continue Nephrology's recommendations. Hopeful discharge in the next 1-2 days (2) UTI (urinary tract infection): Qualifiers: Urinary tract infection type: acute cystitis Hematuria presence: without hematuria Qualified Code(s): N30.00 - Acute cystitis without hematuria Code(s): N39.0 - Urinary tract infection, site not specified Status: Ruled-out Assessment and Plan: ------Abnormal urinalysis. Patient is asymptomatic. She was empirically started on Zosyn for possible UTI. Urine culture does not identify any pathogens and the patient is asymptomatic thus antibiotics were discontinued. (3) Abdominal pain: Qualifiers: Abdominal location: periumbilical Qualified Code(s): R10.33 - Periumbilical pain Code(s): R10.9 - Unspecified abdominal pain Status: Acute Assessment and Plan: -----Patient reports diffuse stabbing abdominal pain x2 weeks. she has been having issues with vomiting and nausea. No vomiting during this admission. She denies having similar symptoms in the past. Suspect she could have been vomiting due to uremia and abdominal pain could be secondary to vomiting. EGD unremarkable. Nonobstructing stones noted in the left kidney, could have hx of kidney stones? Continue with GI work up, likely outpt if this does not improve with improvement in her kidney function. f/u with sx about hernias although I do not suspect this is causing her pain. (4) Supraumbilical hernia: Code(s): K43.9 - Ventral hernia without obstruction or gangrene Status: Chronic Assessment and Plan: -----Earlier in the stay the pt had localized her pain in her periumbilical region with point tenderness to palpation. CT abdomen shows several small fat-containing supraumbilical hernias; do not appear to be strangulated or causing obstruction at this time. Given her history of incarcerated umbilical hernia requiring repair 10/22/2010, she may be appropriate to follow up with general surgery outpatient. (5) Anxiety disorder, unspecified: Qualifiers: Anxiety disorder type: unspecified anxiety disorder Qualified Code(s): F41.9 - Anxiety disorder, unspecified Code(s): F41.9 - Anxiety disorder, unspecified Status: Chronic Assessment and Plan: -----Stable. Continue home xanax. (6) Cervical radiculopathy: Code(s): M54.12 - Radiculopathy, cervical region Status: Chronic Assessment and Plan: -----Continue her home regimen with gabapentin and norco. (7) Mixed hyperlipidemia: Code(s): E78.2 - Mixed hyperlipidemia Status: Chronic Assessment and Plan: -----Continue home statin. (8) Type 2 diabetes mellitus with hyperglycemia: Qualifiers: Diabetes mellitus penitentiary insulin use: without penitentiary use Qualified Code(s): E11.65 - Type 2 diabetes mellitus with hyperglycemia Code(s): E11.65 - Type 2 diabetes mellitus with hyperglycemia Status: Acute Assessment and Plan: -----Last A1c 6.0. Metformin held due to renal function and will be discontinued at discharge. Since her a1c is
[2020-08-14] MEDS: hydrALAZINE HCL 20 MG/ML VIAL 10 MG IV PUSH ×2 (10:53→21:38)
[2020-08-14] MEDS: amLODIPine BESYLATE 5 MG TABLET PO (10:56)
--- NOTE | 2020-08-14 10:57 | PM.PNNEP ---
Progress Note: A&P Assessment and Plan (1) ARF (acute renal failure): Qualifiers: Acute renal failure type: unspecified Qualified Code(s): N17.9 - Acute kidney failure, unspecified Code(s): N17.9 - Acute kidney failure, unspecified Status: Acute Assessment and Plan: creatinine has been improving since admission still suspect some underlying CKD (from DM + HTN) but baseline creatinine unclear further testing pending follow trend - is she at her baseline?? (2) Nausea and vomiting: Code(s): R11.2 - Nausea with vomiting, unspecified Status: Acute Assessment and Plan: appears to be doing better likely playing a role with #1 s/p EGD (3) Essential (primary) hypertension: Code(s): I10 - Essential (primary) hypertension Status: Chronic Assessment and Plan: BP fluctuates to extremes follow trend of hemodynamics may need another agent assuming we cannot restart CHRISTIAN or ARB (4) Nephrolithiasis: Code(s): N20.0 - Calculus of kidney Status: Acute Assessment and Plan: she will need evaluation for this but this can wait till she is an outpatient (5) Type 2 diabetes mellitus with hyperglycemia: Qualifiers: Diabetes mellitus termite treater helper insulin use: without prison use Qualified Code(s): E11.65 - Type 2 diabetes mellitus with hyperglycemia Code(s): E11.65 - Type 2 diabetes mellitus with hyperglycemia Status: Acute Assessment and Plan: follow accuchecks on sliding-scale insulin Will continue to follow. Subjective Date/time seen: 08/14/20 10:57 Appears to be doing fairly well at the time of my visit; creatinine continues to improve; no other acute complaints voiced. Exam Narrative: Exam Narrative: General: WD/WN female in NAD Heart: normal S1 and S2; no rub Lungs: clear to auscultation Abdomen: soft, mild TTP, nondistended, positive bowel sounds Extremities: no cyanosis or clubbing; no edema Skin: warm and dry Objective Data Vital Signs Vital Signs: Vital Signs Temp Pulse Resp BP Pulse Ox 08/14/20 10:52 184/88 H 08/14/20 09:40 36.6 C 84 18 196/91 H 98 08/14/20 09:09 80 08/14/20 04:00 36.8 C 79 20 126/89 96 08/14/20 00:00 36.1 C L 77 20 159/74 H 95 08/13/20 20:00 36.2 C L 79 20 188/90 H 96 08/13/20 17:30 36.7 C 83 15 152/98 H 98 08/13/20 16:00 36.6 C 77 16 171/98 H 99 08/13/20 12:45 70 15 164/99 H 96 08/13/20 12:35 73 18 129/78 93 08/13/20 12:25 79 17 143/87 H 92 08/13/20 11:20 36.4 C 76 16 152/101 H 99 Intake/Output Intake/Output: Intake & Output 08/11/20 08/12/20 08/13/20 08/14/20 23:59 23:59 23:59 23:59 Intake Total 3470 4680 3230 1630 Output Total 2950 2400 3000 900 Balance 520 2280 230 730 Meds/Results Medications: Active Medications Generic Name Dose Route Start Last Admin Trade Name Freq PRN Reason Stop Dose Admin Acetaminophen 650 mg 08/09/20 15:57 08/13/20 09:23 Acetaminophen 325 Mg Tablet PO 650 mg Q4H PRN Administration Mild Pain (1-3) or Fever Hydrocodone Bitart/Acetaminophen 1 tab 08/09/20 19:25 08/14/20 04:51 Hydrocodone/Acetaminophen (*Crx) 5-325 Mg Tablet PO 1 tab Q6H PRN Administration Pain 4-10 Alprazolam 1 mg 08/09/20 16:47 Alprazolam (*Crx) 0.5 Mg Tablet PO TID PRN anxiety Amlodipine Besylate 5 mg 08/14/20 11:00 08/14/20 10:56 Amlodipine Besylate 5 Mg Tablet PO 5 mg QAM VAHID Administration Dextrose 12.5 gm 08/09/20 16:01 Dextrose 50% 25 Gm/50 Ml Syringe IV PUSH PRN PRN Hypoglycemia Protocol Duloxetine HCl 60 mg 08/10/20 09:00 08/14/20 09:09 Duloxetine Hcl 60 Mg Capsule.Dr PO 60 mg DAILY VAHID Administration Famotidine 20 mg 08/09/20 21:00 08/14/20 09:09 Famotidine 20 Mg/2 Ml Vial IV PUSH 20 mg Q12HR VAHID Administration Gabapentin 300 mg 08/09/20 17:00
[2020-08-14 11:30] LABS: Glucose Point of Care 141 (65-105)
--- NOTE | 2020-08-14 11:56 | WPDGIPROGNO ---
Progress Note: A&P Additional Plan Patient alert and comfortable this morning. Notices only mild epigastric discomfort. She denies ongoing nausea vomiting. Tolerating diet at this time. Physical exam repeat reveals patient to be alert. Vital signs stable. Lungs are clear. Heart without murmur. Abdomen soft no localized tenderness. Impression 1. Resolved nausea vomiting. Unremarkable EGD. Nausea could be related to uremia. 2. Urinary tract infection. Likely contributes to at least a component of her discomfort. Currently receiving antibiotics. 3. Renal insufficiency. Uremia could contribute to her nausea and vomiting. Although dehydration could have contributed to her azotemia. Urology service currently following the patient. Anticipate outpatient follow-up with them. Subjective Date/time seen: 08/14/20 11:56 Objective Data Vital Signs Vital Signs: Vital Signs - 24 hr 08/13/20 12:25 08/13/20 12:35 08/13/20 12:45 Temperature Pulse Rate 79 73 70 Respiratory Rate 17 18 15 Blood Pressure 143/87 H 129/78 164/99 H Pulse Oximetry 92 93 96 08/13/20 16:00 08/13/20 17:30 08/13/20 20:00 Temperature 97.8 F 98.1 F 97.1 F L Pulse Rate 77 83 79 Respiratory Rate 16 15 20 Blood Pressure 171/98 H 152/98 H 188/90 H Pulse Oximetry 99 98 96 08/14/20 00:00 08/14/20 04:00 08/14/20 09:09 Temperature 97 F L 98.3 F Pulse Rate 77 79 80 Respiratory Rate 20 20 Blood Pressure 159/74 H 126/89 Pulse Oximetry 95 96 08/14/20 09:40 08/14/20 10:52 Temperature 97.9 F Pulse Rate 84 Respiratory Rate 18 Blood Pressure 196/91 H 184/88 H Pulse Oximetry 98 Intake/Output Intake/Output: Intake & Output 08/11/20 08/12/20 08/13/20 08/14/20 23:59 23:59 23:59 23:59 Intake Total 3470 4680 3230 1630 Output Total 2950 2400 3000 900 Balance 520 2280 230 730 Meds/Results Medications: Active Medications Generic Name Dose Route Start Last Admin Trade Name Freq PRN Reason Stop Dose Admin Acetaminophen 650 mg 08/09/20 15:57 08/13/20 09:23 Acetaminophen 325 Mg Tablet PO 650 mg Q4H PRN Administration Mild Pain (1-3) or Fever Hydrocodone Bitart/Acetaminophen 1 tab 08/09/20 19:25 08/14/20 04:51 Hydrocodone/Acetaminophen (*Crx) 5-325 Mg Tablet PO 1 tab Q6H PRN Administration Pain 4-10 Alprazolam 1 mg 08/09/20 16:47 Alprazolam (*Crx) 0.5 Mg Tablet PO TID PRN anxiety Amlodipine Besylate 5 mg 08/14/20 11:00 08/14/20 10:56 Amlodipine Besylate 5 Mg Tablet PO 5 mg QAM VAHID Administration Dextrose 12.5 gm 08/09/20 16:01 Dextrose 50% 25 Gm/50 Ml Syringe IV PUSH PRN PRN Hypoglycemia Protocol Duloxetine HCl 60 mg 08/10/20 09:00 08/14/20 09:09 Duloxetine Hcl 60 Mg Capsule.Dr PO 60 mg DAILY VAHID Administration Famotidine 20 mg 08/09/20 21:00 08/14/20 09:09 Famotidine 20 Mg/2 Ml Vial IV PUSH 20 mg Q12HR VAHID Administration Gabapentin 300 mg 08/09/20 17:00 08/14/20 09:09 Gabapentin 300 Mg Capsule PO 300 mg TID VAHID Administration Glucagon 1 mg 08/09/20 16:01 Glucagon For Inj 1 Mg Vial IM PRN PRN Hypoglycemia Protocol Glucose 15 gm 08/09/20 16:01 Glucose Oral Gel 15 Gm Of Glucse In 37.5 Gm Tube PO PRN PRN Hypoglycemia Protocol Heparin Sodium (Porcine) 5,000 units 08/09/20 22:00 08/12/20 13:34 Heparin Sodium 5,000 Units/Ml Vial SUB-Q 5,000 units Q8HR VAHID Administration Hydralazine HCl 10 mg 08/14/20 10:36 08/14/20 10:53 Hydralazine Hcl 20 Mg/Ml Vial IV PUSH 10 mg Q8H PRN Administration systolic > 170 Sodium Chloride 1,000 mls @ 100 mls/hr 08/09/20 15:55 08/14/20 06:46 Normal Saline Iv IV CONT 100 mls/hr .Q10H VAHID Administration Dextrose 1,000 mls @ 100 mls/hr 08/09/20 16:01 Dextrose 5% 1,000 Ml IVPB PRN PRN Hypoglycemia Protocol Insulin Aspart 2 - 5 units 08/09/20 17:00 08/14/20 07:40 Insulin Aspart
[2020-08-14] MEDS: MAGNESIUM OXIDE 200 MG TABLET PO ×2 (13:08→20:53)
[2020-08-14 16:23] LABS: Glucose Point of Care 128 (65-105)
[2020-08-14 21:14] LABS: Glucose Point of Care 143 (65-105)
[2020-08-15] VITALS: BP 144/83; PULSE 94; RESP 20; TEMP 36.2; O2SAT 98
[2020-08-15 04:00] VITALS: BP 156/88; PULSE 86; RESP 20; TEMP 37.1; O2SAT 97
[2020-08-15 05:42] VITALS: BP 156/88; PULSE 86; RESP 20; TEMP 37.1; O2SAT 97
[2020-08-15] MEDS: ACETAMINOPHEN 325 MG TABLET 650 MG PO (05:47)
[2020-08-15 06:00] LABS: Hematocrit 37.7 % (37.0-47.0); Hemoglobin 12.8 g/dL (12.0-15.0); Mean Corpuscular Hemoglobin 29.8 pg (26-34); Mean Corpuscular Volume 87.9 fl (80-100); Mean Platelet Volume 10.4 fl (7.4-10.4); Platelet Count Result 283 k/mm3 (150-375); Red Blood Count 4.29 M/mm3 (4.2-5.4); Red Cell Distribution Width 13.5 % (11.5-14.5); White Blood Count 12.9 K/mm3 (4.5-10.0)
[2020-08-15 06:12] LABS: Anion Gap 9 mmol/L (8-16); Blood Urea Nitrogen 24 mg/dL (7-17); Calcium 9.3 mg/dL (8.4-10.2); Carbon Dioxide 22 mmol/L (22-30); Chloride 112 mmol/L (98-107); Estimated CRCL calculation 22 ml/min; Estimated Glomerular Filt Rate 22; Glucose 121 mg/dL (65-105); Magnesium 1.6 mg/dL (1.6-2.3); Phosphorus 4.2 mg/dL (2.5-4.5); Sodium 143 mmol/L (137-145)
[2020-08-15 08:01] LABS: Glucose Point of Care 115 (65-105)
[2020-08-15] MEDS: SODIUM CHLORIDE 0.9% IV 1,000 ML 100 ML IV CONT (09:03)
[2020-08-15] MEDS: amLODIPine BESYLATE 5 MG TABLET PO (09:06)
[2020-08-15] MEDS: DULoxetine HCL 60 MG CAPSULE.DR PO (09:06)
[2020-08-15 09:07] VITALS: PULSE 80
[2020-08-15] MEDS: FAMOTIDINE 20 MG/2 ML VIAL IV PUSH (09:07)
[2020-08-15] MEDS: MAGNESIUM OXIDE 200 MG TABLET PO (09:07)
[2020-08-15] MEDS: GABAPENTIN 300 MG CAPSULE PO ×2 (09:07→12:59)
[2020-08-15] MEDS: METOPROLOL SUCCINATE EXT REL 100 MG TABCR 200 MG PO (09:07)
[2020-08-15] MEDS: NICOTINE (*PBKC) 14 MG PATCH 1 PATCH TRANSDERM (09:08)
[2020-08-15] MEDS: ROSUVASTATIN 10 MG TABLET 40 MG PO (09:08)
--- NOTE | 2020-08-15 09:59 | WPDGIPROGNO ---
Progress Note: A&P Additional Plan Patient alert and comfortable this morning. No longer nauseous. Tolerating diet. Epigastric pain is resolved. physical exam reveals patient to be alert. Comfortable at rest she is anicteric. Abdomen is soft and nontender. Impression 1. Resolved nausea vomiting. Likely related to uremia. 2. Urinary tract infection. Could have contributed to nausea and vomiting. 3. Renal insufficiency. Suggestive of chronic kidney disease. Your Nephrology service following. Plan is for discharge. Follow-up per Nephrology service she can follow up with me if nausea vomiting recurs. Subjective Date/time seen: 08/15/20 09:59 Objective Data Vital Signs Vital Signs: Vital Signs - 24 hr 08/14/20 10:52 08/14/20 12:29 08/14/20 13:35 Temperature 97.0 F L Pulse Rate 81 Respiratory Rate 18 Blood Pressure 184/88 H 154/97 H 143/78 H Pulse Oximetry 98 08/14/20 18:35 08/14/20 20:00 08/15/20 00:00 Temperature 98.7 F 98 F 97.1 F L Pulse Rate 90 93 94 Respiratory Rate 18 18 20 Blood Pressure 157/87 H 150/93 H 144/83 H Pulse Oximetry 94 96 98 08/15/20 04:00 08/15/20 05:42 08/15/20 09:07 Temperature 98.7 F 98.7 F Pulse Rate 86 86 80 Respiratory Rate 20 20 Blood Pressure 156/88 H 156/88 H Pulse Oximetry 97 97 Intake/Output Intake/Output: Intake & Output 08/12/20 08/13/20 08/14/20 08/15/20 23:59 23:59 23:59 23:59 Intake Total 4680 3230 3610 1510 Output Total 2400 3000 2100 2200 Balance 2280 230 1510 -690 Meds/Results Medications: Active Medications Generic Name Dose Route Start Last Admin Trade Name Freq PRN Reason Stop Dose Admin Acetaminophen 650 mg 08/09/20 15:57 08/15/20 05:47 Acetaminophen 325 Mg Tablet PO 650 mg Q4H PRN Administration Mild Pain (1-3) or Fever Hydrocodone Bitart/Acetaminophen 1 tab 08/09/20 19:25 08/14/20 20:58 Hydrocodone/Acetaminophen (*Crx) 5-325 Mg Tablet PO 1 tab Q6H PRN Administration Pain 4-10 Alprazolam 1 mg 08/09/20 16:47 Alprazolam (*Crx) 0.5 Mg Tablet PO TID PRN anxiety Amlodipine Besylate 5 mg 08/14/20 11:00 08/15/20 09:06 Amlodipine Besylate 5 Mg Tablet PO 5 mg QAM VAHID Administration Dextrose 12.5 gm 08/09/20 16:01 Dextrose 50% 25 Gm/50 Ml Syringe IV PUSH PRN PRN Hypoglycemia Protocol Duloxetine HCl 60 mg 08/10/20 09:00 08/15/20 09:06 Duloxetine Hcl 60 Mg Capsule. PO 60 mg DAILY VAHID Administration Famotidine 20 mg 08/09/20 21:00 08/15/20 09:07 Famotidine 20 Mg/2 Ml Vial IV PUSH 20 mg Q12HR VAHID Administration Gabapentin 300 mg 08/09/20 17:00 08/15/20 09:07 Gabapentin 300 Mg Capsule PO 300 mg TID VAHID Administration Glucagon 1 mg 08/09/20 16:01 Glucagon For Inj 1 Mg Vial IM PRN PRN Hypoglycemia Protocol Glucose 15 gm 08/09/20 16:01 Glucose Oral Gel 15 Gm Of Glucse In 37.5 Gm Tube PO PRN PRN Hypoglycemia Protocol Heparin Sodium (Porcine) 5,000 units 08/09/20 22:00 08/12/20 13:34 Heparin Sodium 5,000 Units/Ml Vial SUB-Q 5,000 units Q8HR VAHID Administration Hydralazine HCl 10 mg 08/14/20 10:36 08/14/20 21:38 Hydralazine Hcl 20 Mg/Ml Vial IV PUSH 10 mg Q8H PRN Administration systolic > 170 Sodium Chloride 1,000 mls @ 100 mls/hr 08/09/20 15:55 08/15/20 09:03 Normal Saline Iv IV CONT 100 mls/hr .Q10H VAHID Administration Dextrose 1,000 mls @ 100 mls/hr 08/09/20 16:01 Dextrose 5% 1,000 Ml IVPB PRN PRN Hypoglycemia Protocol Insulin Aspart 2 - 5 units 08/09/20 17:00 08/15/20 09:00 Insulin Aspart (*Bkc) 100 Units/Ml SUB-Q Not Given TIDWM VAHID Protocol Magnesium Oxide 200 mg 08/14/20 10:55 08/15/20 09:07 Magnesium Oxide 200 Mg Tablet PO 200 mg Q12HR VAHID Administration Metoprolol Succinate 200 mg 08/10/20 09:00 08/15/20 09:07 Metoprolol Succinate Ext Rel 100 Mg Tabcr PO 200 m
[2020-08-15 10:00] VITALS: BP 152/79; PULSE 89; RESP 18; TEMP 36.8; O2SAT 97
[2020-08-15 12:06] LABS: Glucose Point of Care 132 (65-105)
[2020-08-15 12:27] LABS: Complement Total CH50 >60 U/mL (31-60)
--- NOTE | 2020-08-15 13:39 | PCDIET ---
Weekly nutritional screen. Patient is tolerating current diet with adequate intake. No weight loss reported. BMI 34.5. No nutritional needs at this time.
--- NOTE | 2020-08-15 13:49 | PM.DS ---
DS: Admitting Diagnosis Admitting Diagnosis Admitting Diagnosis: ABD PAIN,R10.9,E78.2,E11.65,F41.9;Acute Renal Fail DS: Discharge Diagnosis Discharge Diagnosis (1) ARF (acute renal failure): Qualifiers: Acute renal failure type: unspecified Qualified Code(s): N17.9 - Acute kidney failure, unspecified Code(s): N17.9 - Acute kidney failure, unspecified Status: Acute Assessment and Plan: ------Patient directly admitted from PCP office due to elevated Cr on outpatient labs. Cr 4.3 on arrival, improved to 2.2 with IV fluids. Unsure of chronicity without recent labs for comparison. Cr in 11/2018 was 1.3. Suspect now in part related to dehydration from recent nausea and vomiting, could be superimposed on undiagnosed chronic kidney disease. Renal ultrasound shows no sonographic evidence to correlate for the patient's symptoms. she does have pretty uncontrolled hypertension. She is to follow up with nephrology. I called her pcp office and spoke to them about the plan of care. She is to get a BMP in one week. (2) UTI (urinary tract infection): Qualifiers: Hematuria presence: without hematuria Urinary tract infection type: acute cystitis Qualified Code(s): N30.00 - Acute cystitis without hematuria Code(s): N39.0 - Urinary tract infection, site not specified Status: Ruled-out Assessment and Plan: ------Abnormal urinalysis. Patient is asymptomatic. She was empirically started on Zosyn for possible UTI. Urine culture does not identify any pathogens and the patient is asymptomatic thus antibiotics were discontinued. (3) Abdominal pain: Qualifiers: Abdominal location: periumbilical Qualified Code(s): R10.33 - Periumbilical pain Code(s): R10.9 - Unspecified abdominal pain Status: Acute Assessment and Plan: -----Patient reports diffuse stabbing abdominal pain x2 weeks. she has been having issues with vomiting and nausea. No vomiting during this admission. She denies having similar symptoms in the past. Suspect she could have been vomiting due to uremia and abdominal pain could be secondary to vomiting. EGD unremarkable. Nonobstructing stones noted in the left kidney, could have hx of kidney stones? Continue with GI work up, likely outpt if this does not improve with improvement in her kidney function. f/u with sx about hernias although I do not suspect this is causing her pain. (4) Supraumbilical hernia: Code(s): K43.9 - Ventral hernia without obstruction or gangrene Status: Chronic Assessment and Plan: -----Earlier in the stay the pt had localized her pain in her periumbilical region with point tenderness to palpation. CT abdomen shows several small fat-containing supraumbilical hernias; do not appear to be strangulated or causing obstruction at this time. Given her history of incarcerated umbilical hernia requiring repair 10/22/2010, she may be appropriate to follow up with general surgery outpatient. (5) Anxiety disorder, unspecified: Qualifiers: Anxiety disorder type: unspecified anxiety disorder Qualified Code(s): F41.9 - Anxiety disorder, unspecified Code(s): F41.9 - Anxiety disorder, unspecified Status: Chronic Assessment and Plan: -----Stable. Continue home xanax. (6) Cervical radiculopathy: Code(s): M54.12 - Radiculopathy, cervical region Status: Chronic Assessment and Plan: -----Continue her home regimen with gabapentin and norco. (7) Mixed hyperlipidemia: Code(s): E78.2 - Mixed hyperlipidemia Status: Chronic Assessment and Plan: -----Continue home statin. (8) Type 2 diabetes mellitus with hyperglycemia: Qualifiers: Diabetes mellitus operating manager insulin use: without correction use Qualified Code(s): E11.65 - Type 2 diabetes mellitus with hyperglycemia Code(s): E11.65 - Type 2 diabetes mellitus w
[2020-08-15 16:18] LABS: Kappa\\Lambda Light Chains 1.42 (0.26-1.65); Lambda Light Chain 32.9 mg/L (5.7-26.3)
== END 2020-08-15 14:50 | disposition home or self-care (01) | DRG 684 ==
LOC: ANH2MED 15:17
PROVIDERS: Internal Medicine Gastroenterology; Internal Medicine Nephrology; Physician Assistant; Admitting Provider Internal Medicine; PCP Family Medicine; Visit Provider Physician Assistant
PROC: 0DJ08ZZ Inspection of Upper Intestinal Tract, Via Natural or Artificial Opening Endoscopic (ICD-10-PCS; CPT 43235; principal; 2020-08-13 12:00)
DX: N17.9 Acute kidney failure, unspecified (principal); K43.9 Ventral hernia without obstruction or gangrene; F41.9 Anxiety disorder, unspecified; M54.12 Radiculopathy, cervical region; E78.2 Mixed hyperlipidemia; E11.65 Type 2 diabetes mellitus with hyperglycemia; N20.0 Calculus of kidney; E66.9 Obesity, unspecified; I10 Essential (primary) hypertension; E86.0 Dehydration; F17.210 Nicotine dependence, cigarettes, uncomplicated; Z66 Do not resuscitate; Z90.49 Acquired absence of other specified parts of digestive tract; Z98.1 Arthrodesis status; Z68.34 Body mass index [BMI] 34.0-34.9, adult
CPT/HCPCS: 36415; 71046; 74176; 76775; 80048; 80053; 80061; 80069; 81001; 82150; 82550; 82570; 83036; 83605; 83690; 83735; 83883; 84156; 84300; 84443; 85014; 85018; 85025; 85027; 85652; 85999; 86038; 86160; 86162; 86334; 86335; 87040; 87081; 87086; 87088; 93005; A9270; J0360; J1644; J1815; J2543; J2704; J3475; J7030; J7120

== ENCOUNTER 2020-08-22 12:59 | Outpatient (CLI) | payer MEDICARE, SELFPAY ==
[2020-08-22 14:02] LABS: Anion Gap 7 mmol/L (8-16); Blood Urea Nitrogen 26 mg/dL (7-17); Carbon Dioxide 30 mmol/L (22-30); Chloride 102 mmol/L (98-107); Estimated Glomerular Filt Rate 20; Glucose 146 mg/dL (65-105); Potassium 4.2 mmol/L (3.4-5.0); Sodium 139 mmol/L (137-145)
== END 2020-08-22 13:00 | disposition home or self-care (01) ==
PROVIDERS: PCP Family Medicine; Visit Provider Physician Assistant
DX: N17.9 Acute kidney failure, unspecified (principal)
CPT/HCPCS: 36415; 80048

== ENCOUNTER 2020-10-15 16:01 | Outpatient (CLI) | payer MEDICARE, SELFPAY ==
[2020-10-15 16:24] LABS: Hematocrit 43.3 % (37.0-47.0); Hemoglobin 14.2 g/dL (12.0-15.0); Mean Corpuscular HGB Conc 32.8 g/dl (32-36); Mean Corpuscular Hemoglobin 29.8 pg (26-34); Mean Platelet Volume 9.4 fl (7.4-10.4); Platelet Count Result 299 k/mm3 (150-375); Red Blood Count 4.76 M/mm3 (4.2-5.4); Red Cell Distribution Width 13.5 % (11.5-14.5)
[2020-10-15 16:37] LABS: Anion Gap 8 mmol/L (8-16); Blood Urea Nitrogen 22 mg/dL (7-17); Calcium 9.5 mg/dL (8.4-10.2); Carbon Dioxide 26 mmol/L (22-30); Chloride 106 mmol/L (98-107); Estimated Glomerular Filt Rate 19; Glucose 160 mg/dL (65-105); Sodium 140 mmol/L (137-145)
== END 2020-10-15 16:02 | disposition home or self-care (01) ==
PROVIDERS: PCP Family Medicine; Visit Provider Family Medicine
DX: N18.4 Chronic kidney disease, stage 4 (severe) (principal)
CPT/HCPCS: 36415; 80048; 85027

== ENCOUNTER 2021-02-12 15:55 | Outpatient (CLI) | payer MEDICARE, SELFPAY ==
--- NOTE | ~2021-02-12 | US_ITS ---
EXAMINATION: US venous doppler [facility] DATE: 02/12/2021 16:57 INDICATION: Lower limb swelling. TECHNIQUE: Grayscale ultrasound images without and with compression and Doppler ultrasound images of the bilateral lower extremity veins were obtained. COMPARISON: None. FINDINGS: The visualized portions of right common femoral vein, profunda (deep) femoral vein, femoral vein, pop liteal vein, peroneal veins, posterior tibial veins, and greater saphenous vein outflow are patent. The visualized portions of left common femoral vein, profunda femoral vein, femoral vein, popliteal v ein, peroneal veins, posterior tibial veins, and greater saphenous vein outflow are patent. IMPRESSION: 1. No deep venous thrombosis. Reviewed, dictated and finalized at location A.
--- NOTE | ~2021-02-12 | US_ITS ---
EXAMINATION: US venous doppler [facility] DATE: 02/12/2021 16:57 INDICATION: Upper limb edema. TECHNIQUE: Grayscale ultrasound images without and with compression and Doppler ultrasound images of the bilateral upper extremity veins were obtained. COMPARISON: None. FINDINGS: The visualized portions of the right internal jugular vein, subclavian vein, axillary vein, brachial veins, basilic vein, cephalic vein, radial vein, and ulnar vein are patent. The visualized portions of the left internal jugular vein, subclavian vein, axillary vein, basilic ve in, cephalic vein, radial vein, and ulnar vein are patent. There is thrombus in a left brachial vein. IMPRESSION: 1. Deep vein thrombosis involving a left brachial vein. I called this result to Srinivas Munoz. Reviewed, dictated and finalized at location A. IMPRESSION: 1. Deep vein thrombosis involving a left brachial vein. I called this result t altaf Munoz.
== END 2021-02-12 15:56 | disposition home or self-care (01) ==
PROVIDERS: PCP Family Medicine; Visit Provider Nurse Practitioner Family
DX: M25.562 Pain in left knee (principal); M79.662 Pain in left lower leg; M79.89 Other specified soft tissue disorders; I82.622 Acute embolism and thrombosis of deep veins of left upper extremity
CPT/HCPCS: 93970

== ENCOUNTER 2021-02-12 17:30 | Outpatient (CLI) | payer MEDICARE, SELFPAY ==
[2021-02-12 18:01] LABS: Basophils Absolute Auto 0.1 K/mm3 (0.0-0.1); Basophils Percent Auto 1.1 % (0.2-1.2); Eosinophils Absolute Auto 0.3 K/mm3 (0-0.3); Eosinophils Percent Auto 2.8 % (0-4.4); Hematocrit 49.8 % (37.0-47.0); Hemoglobin 16.2 g/dL (12.0-15.0); Immature Granulocyte Absolute 0.11 K/mm3 (0.00-0.031); Immature Granulocyte Percent A 0.9 % (0-0.5); Lymphocytes Absolute Auto 3.97 K/mm3 (0.9-3.2); Lymphocytes Percent Auto 32.4 % (18.3-44.2); Mean Corpuscular HGB Conc 32.5 g/dl (32-36); Mean Corpuscular Hemoglobin 28.9 pg (26-34); Mean Corpuscular Volume 88.9 fl (80-100); Mean Platelet Volume 9.5 fl (7.4-10.4); Monocytes Absolute Auto 0.8 K/mm3 (0.1-0.6); Monocytes Percent Auto 6.8 % (2.6-8.5); Neutrophils Absolute Auto 6.9 K/mm3 (1.3-6.7); Platelet Count Result 336 k/mm3 (150-375); Red Cell Distribution Width 15.3 % (11.5-14.5); White Blood Count 12.3 K/mm3 (4.5-10.0)
[2021-02-12 18:09] LABS: Alanine Aminotransferase 15 U/L (4-35); Albumin Level 3.8 g/dL (3.5-5.1); Alkaline Phosphatase 87 U/L (38-126); Anion Gap 9 mmol/L (8-16); Aspartate Amino Transferase 25 U/L (14-36); Bilirubin,Total 0.4 mg/dL (0.2-1.3); Blood Urea Nitrogen 32 mg/dL (7-17); Calcium 9.5 mg/dL (8.4-10.2); Carbon Dioxide 20 mmol/L (22-30); Chloride 109 mmol/L (98-107); Estimated Glomerular Filt Rate 13; Glucose 167 mg/dL (65-105); Sodium 138 mmol/L (137-145)
== END 2021-02-12 17:31 | disposition home or self-care (01) ==
PROVIDERS: PCP Family Medicine; Visit Provider Nurse Practitioner Family
DX: K52.9 Noninfective gastroenteritis and colitis, unspecified (principal); M79.89 Other specified soft tissue disorders; N18.4 Chronic kidney disease, stage 4 (severe)
CPT/HCPCS: 36415; 80053; 85025; 93970

== ENCOUNTER 2021-02-19 11:14 | Outpatient (CLI) | payer MEDICARE, SELFPAY ==
--- NOTE | ~2021-02-19 | US_ITS ---
EXAMINATION: US venous doppler [facility] DATE: 02/19/2021 12:09 INDICATION: Left upper limb swelling. TECHNIQUE: Grayscale ultrasound images without and with compression and Doppler ultrasound images of the bilateral upper extremity veins were obtained. COMPARISON: None. FINDINGS: The visualized portions of the right internal jugular vein, subclavian vein, axillary vein, brachial veins, basilic vein, cephalic vein, radial vein, and ulnar vein are patent. The visualized portions of the left internal jugular vein, subclavian vein, axillary vein, basilic ve in, cephalic vein, radial vein, and ulnar vein are patent. There is thrombus in a left brachial vein. IMPRESSION: 1. Persistent acute deep vein thrombosis involving a left brachial vein. Reviewed, dictated and finalized at location B.
== END 2021-02-19 11:15 | disposition home or self-care (01) ==
PROVIDERS: PCP Family Medicine; Visit Provider Nurse Practitioner Family
DX: M79.89 Other specified soft tissue disorders (principal); I82.622 Acute embolism and thrombosis of deep veins of left upper extremity
CPT/HCPCS: 93970

== ENCOUNTER 2021-02-25 13:34 | Outpatient (CLI) | payer MEDICARE, SELFPAY ==
--- NOTE | ~2021-02-25 | MR_ITS ---
EXAMINATION: MR brain/brain stem wo con DATE: 02/25/2021 14:52 INDICATION: Bilateral leg weakness. TECHNIQUE: Magnetic resonance imaging (MRI) of the brain and brainstem was performed without intraven ous contrast. Sequences included sagittal and axial T1-weighted FSE, axial diffusion-weighted FS EPI, axial T2*-weighted GRE, axial T2-weighted FLAIR Propeller, and axial T2-weighted Propeller. Apparent diffusion coefficient (ADC) maps were created. COMPARISON: Brain MRI 04/13/2008 FINDINGS: There are scattered areas of nonspecific increased T2-weighted signal intensity in the cere bral white matter and jorge. There is no intracranial hemorrhage, acute infarction, or abnormal intrac ranial mass lesion. The ventricles are normal in size. The orbits are normal. The paranasal sinuses a re clear. The mastoid air cells are normal. IMPRESSION: 1. Moderate nonspecific cerebral white matter disease and pontine disease, which likely represents ch ronic small vessel ischemic disease, worsened from 04/13/2008. Reviewed, dictated and finalized at location A. IMPRESSION: 1. Moderate nonspecific cerebral white matter disease and pontine disease, whic h likely represents chronic small vessel ischemic disease, worsened from 008.
== END 2021-02-25 13:35 | disposition home or self-care (01) ==
PROVIDERS: PCP Family Medicine; Visit Provider Nurse Practitioner Family
DX: M79.89 Other specified soft tissue disorders (principal); R53.1 Weakness; R93.0 Abnormal findings on diagnostic imaging of skull and head, not elsewhere classified
CPT/HCPCS: 70551

== ENCOUNTER 2021-02-25 14:44 | Emergency (ER) | payer MEDICARE, SELFPAY ==
[2021-02-25] VITALS (17 sets, daily range): BP systolic 130–168; BP diastolic 70–113; PULSE 85–96; RESP 12–19; TEMP 36.1–36.7; O2SAT 80–100
--- NOTE | ~2021-02-25 | US_ITS ---
EXAMINATION: US venous doppler [facility] EXAM DATE: 02/25/2021 16:59 INDICATION: Bilateral leg pain. TECHNIQUE: Multiple grayscale, color flow and Doppler images of the lower extremity deep venous syste ms bilaterally were obtained and reviewed. Comparison is made to prior examination from 02/12/2021. FINDINGS: Right side: The right common femoral, femoral and profunda veins demonstrate normal color flow, respi ratory variation, augmentation and compressibility. Compressibility, color flow confirmed within the right popliteal, posterior tibial, peroneal, and greater saphenous veins. Left side: The left common femoral, femoral and profunda veins demonstrate normal color flow, respira tory variation, augmentation and compressibility. Compressibility, color flow confirmed within the l eft popliteal, posterior tibial, peroneal, and greater saphenous veins. IMPRESSION: 1. No lower extremity deep venous thrombosis bilaterally. Reviewed, dictated and finalized at location A.
[2021-02-25] MEDS: fentaNYL CITRATE INJ (*CRX) 100 MCG/2 ML VIAL IV PUSH (16:25)
[2021-02-25 16:34] LABS: Basophils Absolute Auto 0.1 K/mm3 (0.0-0.1); Basophils Percent Auto 0.7 % (0.2-1.2); Eosinophils Absolute Auto 0.4 K/mm3 (0-0.3); Eosinophils Percent Auto 2.9 % (0-4.4); Hematocrit 45.9 % (37.0-47.0); Hemoglobin 14.8 g/dL (12.0-15.0); Immature Granulocyte Absolute 0.09 K/mm3 (0.00-0.031); Immature Granulocyte Percent A 0.7 % (0-0.5); Lymphocytes Absolute Auto 3.82 K/mm3 (0.9-3.2); Lymphocytes Percent Auto 30.4 % (18.3-44.2); Mean Corpuscular HGB Conc 32.2 g/dl (32-36); Mean Corpuscular Hemoglobin 29.1 pg (26-34); Mean Corpuscular Volume 90.4 fl (80-100); Mean Platelet Volume 9.6 fl (7.4-10.4); Monocytes Absolute Auto 0.8 K/mm3 (0.1-0.6); Monocytes Percent Auto 6.6 % (2.6-8.5); Neutrophils Absolute Auto 7.4 K/mm3 (1.3-6.7); Neutrophils Percent Auto 58.7 % (45.5-73.1); Platelet Count Result 336 k/mm3 (150-375); Red Blood Count 5.08 M/mm3 (4.2-5.4); Red Cell Distribution Width 14.5 % (11.5-14.5); White Blood Count 12.6 K/mm3 (4.5-10.0)
[2021-02-25 16:46] LABS: Anion Gap 8 mmol/L (8-16); Blood Urea Nitrogen 29 mg/dL (7-17); Calcium 9.2 mg/dL (8.4-10.2); Carbon Dioxide 22 mmol/L (22-30); Chloride 108 mmol/L (98-107); Estimated CRCL calculation 15 ml/min; Estimated Glomerular Filt Rate 13; Glucose 178 mg/dL (65-105); Potassium 4.6 mmol/L (3.4-5.0); Sodium 138 mmol/L (137-145)
--- NOTE | 2021-02-25 16:47 | ED.GENADULT ---
HPI - General Adult General Chief complaint: Extremity Injury, Lower <Steven Peoples MD - Last Filed: 02/25/21 16:51> Stated complaint: knee swelling, unable to walk <Steven Peoples MD - Last Filed: 02/25/21 16:51> Time Seen by Provider: 02/25/21 15:58 <Steven Peoples MD - Last Filed: 02/25/21 16:51> Source: patient and family <Steven Peoples MD - Last Filed: 02/25/21 16:51> Mode of arrival: wheelchair <Steven Peoples MD - Last Filed: 02/25/21 16:51> Limitations: no limitations <Steven Peoples MD - Last Filed: 02/25/21 16:51> History of Present Illness HPI narrative: 65-year-old with a history of hypertension, diabetes, CKD here with complaints of bilateral leg pain for last 4 days. Patient states that she has been taking hydrocodone with no relief. Patient will had MRI of the brain earlier this morning for possible evaluation of her stroke as per the . She denies any fever or chills. <Steven Peoples MD - Last Filed: 02/25/21 16:51> Onset (ago): day(s) (4) <Steven Peoples MD - Last Filed: 02/25/21 16:51> Location: lower extremity <Steven Peoples MD - Last Filed: 02/25/21 16:51> Radiation: non-radiation <Steven Peoples MD - Last Filed: 02/25/21 16:51> Severity: severe <Steven Peoples MD - Last Filed: 02/25/21 16:51> Severity scale (1-10): 10 <MD Mp Deleon Last Filed: 02/25/21 16:51> Quality: aching <MD Mp Deleon Last Filed: 02/25/21 16:51> Pain Consistency: constant <Steven Peoples MD - Last Filed: 02/25/21 16:51> Relieving factors: none <Steven Peoples MD - Last Filed: 02/25/21 16:51> Exacerbating factors: none <Steven Peoples MD - Last Filed: 02/25/21 16:51> Associated symptoms: denies other symptoms <Steven Peoples MD - Last Filed: 02/25/21 16:51> Related Data Home medications: Home Medications Medication Instructions Recorded Confirmed cyanocobalamin (vitamin B-12) 1,000 mcg IM MONTHLY 02/12/21 02/13/21 1,000 mcg/mL injection solution <Steven Peoples MD - Last Filed: 02/25/21 16:51> Allergies/adverse reactions: Allergies Allergy/AdvReac Type Severity Reaction Status Date / Time latex Allergy Intermediate Redness of Verified 02/12/21 14:38 Skin <Steven Peoples MD - Last Filed: 02/25/21 16:51> Review of Systems Review of Systems: All systems reviewed & are unremarkable except as noted in HPI and below <Steven Peoples MD - Last Filed: 02/25/21 16:51> Constitutional: Constitutional: Reports no additional constitutional complaints <Steven Peoples MD - Last Filed: 02/25/21 16:51> Eyes: Eyes: Reports no additional eye complaints <Steven Peoples MD - Last Filed: 02/25/21 16:51> ENT: Reports system reviewed and no additional complaints, except as documented <Steven Peoples MD - Last Filed: 02/25/21 16:51> Cardiovascular: Cardiovascular: Reports no additional cardiovascular complaints <Steven Peoples MD - Last Filed: 02/25/21 16:51> Respiratory: Respiratory: Reports no additional respiratory complaints <Steven Peoples MD - Last Filed: 02/25/21 16:51> Gastrointestinal: Gastrointestinal: Reports no additional gastrointestinal complaints <Steven Peoples MD - Last Filed: 02/25/21 16:51> Musculoskeletal: Musculoskeletal: Reports as per HPI <Steven Peoples MD - Last Filed: 02/25/21 16:51> Integumentary/Breasts: Skin/Breast: Reports system reviewed and no additional complaints, except as docu <Steven Peoples MD - Last Filed: 02/25/21 16:51> Neurologic: Reports system reviewed and no additional complaints, except as documented <Steven Peoples MD - Last Filed: 02/25/21 16:51> [facility] Past Medical History Medical History: Medical History Abdominal hernia Anxiety disorder, unspecified ARF (acute renal failure) on chronic BMI 34.0-34.9,adult BMI 36.0-36.9,adult Cervi
[2021-02-25 16:50] LABS: CRP 0.9 mg/dL (<1.0)
[2021-02-25 18:56] LABS: Add Urine Microscopic? YES; Appearance Urine Cloudy (Clear); Bilirubin Urine Negative (Negative); Blood Urine Negative (Negative); Color Urine Yellow (Yellow); Glucose Urine UA 2+ mg/dL (Negative); Ketones Urine Negative (Negative); Leukocyte Esterase Ur Negative LEU/UL (Negative); Mucus Urine Rare /lpf; Nitrate Urine Negative (Negative); Protein Urine 3+ mg/dL (Negative); RBC Urine 0-2 /hpf (0-2); Specific Grav Ur 1.017 (1.001-1.035); Squamous Epithelial Cell Urine Many /hpf (Few); Urobilinogen Urine Negative mg/dL (<2.0)
[2021-02-25] MEDS: ONDANSETRON INJ 4 MG/2 ML VIAL IV PUSH (19:04)
[2021-02-25] MEDS: HYDROmorphone HCL INJ (*CRX) 1 MG/ML SYR 0.5 MG IV PUSH (19:06)
== END 2021-02-25 20:21 | disposition home or self-care (01) ==
PROVIDERS: Family Medicine; Emergency Provider Emergency Medicine; PCP Family Medicine
DX: M79.605 Pain in left leg (principal); M79.604 Pain in right leg; E11.22 Type 2 diabetes mellitus with diabetic chronic kidney disease; I12.9 Hypertensive chronic kidney disease with stage 1 through stage 4 chronic kidney disease, or unspecified chronic kidney disease; N18.4 Chronic kidney disease, stage 4 (severe); F41.9 Anxiety disorder, unspecified; E78.2 Mixed hyperlipidemia; E66.9 Obesity, unspecified; Z68.38 Body mass index [BMI] 38.0-38.9, adult; Z98.62 Peripheral vascular angioplasty status; Z79.01 Long term (current) use of anticoagulants; Z79.84 Long term (current) use of oral hypoglycemic drugs; Z87.442 Personal history of urinary calculi; F17.210 Nicotine dependence, cigarettes, uncomplicated; Z66 Do not resuscitate; Z86.718 Personal history of other venous thrombosis and embolism; M17.10 Unilateral primary osteoarthritis, unspecified knee
CPT/HCPCS: 36415; 70551; 80048; 81001; 85025; 86140; 93970; 96374; 96375; 99284; J1170; J2405; J3010

== ENCOUNTER 2021-03-28 12:10 | Outpatient (CLI) | payer MEDICARE, SELFPAY ==
[2021-03-28 13:04] LABS: Hematocrit 44.7 % (37.0-47.0); Hemoglobin 14.8 g/dL (12.0-15.0); Mean Corpuscular HGB Conc 33.1 g/dl (32-36); Mean Corpuscular Hemoglobin 28.7 pg (26-34); Mean Corpuscular Volume 86.8 fl (80-100); Mean Platelet Volume 9.8 fl (7.4-10.4); Platelet Count Result 378 k/mm3 (150-375); Red Blood Count 5.15 M/mm3 (4.2-5.4); Red Cell Distribution Width 13.7 % (11.5-14.5); White Blood Count 12.7 K/mm3 (4.5-10.0)
[2021-03-28 13:17] LABS: Albumin Level 3.8 g/dL (3.5-5.1); Anion Gap 11 mmol/L (8-16); Blood Urea Nitrogen 32 mg/dL (7-17); Calcium 9.4 mg/dL (8.4-10.2); Carbon Dioxide 22 mmol/L (22-30); Chloride 103 mmol/L (98-107); Estimated Glomerular Filt Rate 11; Glucose 246 mg/dL (65-105); Phosphorus 4.7 mg/dL (2.5-4.5); Potassium 3.3 mmol/L (3.4-5.0); Sodium 136 mmol/L (137-145)
[2021-03-28 14:53] LABS: Hepatitis B Surface Antigen Negative (Negative)
[2021-03-28 15:11] LABS: Hepatitis B Surface Anti Res Negative; Hepatitis C Virus Antibody Negative (Negative)
[2021-03-31 19:07] LABS: Hepatitis B Core Ab Total Nonreactive (Nonreactive)
== END 2021-03-28 12:11 | disposition home or self-care (01) ==
PROVIDERS: PCP Family Medicine
DX: N17.9 Acute kidney failure, unspecified (principal); N18.6 End stage renal disease
CPT/HCPCS: 36415; 80069; 85027; 86704; 86706; 86803; 87340

== ENCOUNTER 2021-04-09 15:14 | Outpatient (CLI) | payer MEDICARE, SELFPAY ==
--- NOTE | ~2021-04-09 | XR_ITS ---
EXAMINATION: XR chest 2V 04/09/2021 15:50 INDICATION: Hypertension PROCEDURE: 2 view chest COMPARISON: 08/09/2020 FINDINGS: The lungs are clear. The cardiomediastinal silhouette is within normal limits. There are no pleural effusions. There is no pneumothorax suspected. IMPRESSION: 1: NO ACUTE CARDIOPULMONARY DISEASE. Reviewed, dictated and finalized at location B.
[2021-04-09 16:32] LABS: Hematocrit 47.2 % (37.0-47.0); Hemoglobin 15.6 g/dL (12.0-15.0); Mean Corpuscular HGB Conc 33.1 g/dl (32-36); Mean Corpuscular Hemoglobin 28.9 pg (26-34); Mean Corpuscular Volume 87.4 fl (80-100); Mean Platelet Volume 9.9 fl (7.4-10.4); Platelet Count Result 294 k/mm3 (150-375); Red Cell Distribution Width 13.6 % (11.5-14.5); White Blood Count 12.8 K/mm3 (4.5-10.0)
[2021-04-09 16:42] LABS: Anion Gap 13 mmol/L (8-16); Blood Urea Nitrogen 34 mg/dL (7-17); Carbon Dioxide 25 mmol/L (22-30); Chloride 100 mmol/L (98-107); Estimated Glomerular Filt Rate 12; Glucose 339 mg/dL (65-105); Phosphorus 4.4 mg/dL (2.5-4.5); Potassium 3.4 mmol/L (3.4-5.0); Sodium 138 mmol/L (137-145)
[2021-04-09 18:13] LABS: Hepatitis B Surface Antigen Negative (Negative)
[2021-04-09 18:30] LABS: Hepatitis B Surface Anti Res Negative; Hepatitis C Virus Antibody Negative (Negative)
[2021-04-11 19:25] LABS: Hepatitis B Core Ab Total Nonreactive (Nonreactive)
== END 2021-04-09 15:15 | disposition home or self-care (01) ==
PROVIDERS: PCP Family Medicine
DX: Z49.01 Encounter for fitting and adjustment of extracorporeal dialysis catheter (principal)
CPT/HCPCS: 36415; 71046; 80069; 85027; 86704; 86706; 86803; 87340

== ENCOUNTER 2021-09-24 16:26 | Outpatient (CLI) | payer MEDICARE, SELFPAY ==
--- NOTE | ~2021-09-24 | XR_ITS ---
XR knee LT 3V 09/24/2021 17:27 Indication: Left knee pain Procedure: 3 views left knee Comparison: 07/04/2020 Findings: No fracture, subluxation or dislocation. There is osteoarthritis of the patellofemoral comp artment. Small joint effusion. Osteopenia. There are vascular calcifications. Impression: 1: Mild patellofemoral compartment osteoarthritis. Reviewed, dictated and finalized at location A. 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
== END 2021-09-24 16:27 | disposition home or self-care (01) ==
LOC: ANHIMG 16:49
PROVIDERS: PCP Family Medicine
DX: R60.0 Localized edema (principal); M17.12 Unilateral primary osteoarthritis, left knee
CPT/HCPCS: 73562

== ENCOUNTER 2021-10-09 14:26 | Outpatient (CLI) | payer MEDICARE, SELFPAY ==
--- NOTE | ~2021-10-09 | US_ITS ---
EXAMINATION: US venous doppler [facility] EXAM DATE: 10/09/2021 17:40 INDICATION: I82.622 - Acute embolism and thrombosis of deep veins of ... TECHNIQUE: Multiple grayscale, color flow, Doppler sonographic images of the left upper extremity vei ns obtained by technologist. Compression was performed where able. Comparison is made to prior exami nation from 02/19/2021. FINDINGS: Left upper extremity: Jugular vein: ------------> Normal. Subclavian vein: --------> Normal. Axillary vein:------------> Normal. Brachial vein:-----------> Normal. Basilic vein: ------------> Normal. Cephalic vein: ----------> Normal. Radial vein: ------------> Normal. Ulnar vein: > Normal. There was brachial thrombus on prior study in January which has resolved. IMPRESSION: No deep venous thrombosis of the left upper extremity. Reviewed, dictated and finalized at location A. RANGE OPERATOR
== END 2021-10-09 14:27 | disposition home or self-care (01) ==
LOC: ANHIMG 14:32
PROVIDERS: PCP Family Medicine; Visit Provider Nurse Practitioner Family
DX: I82.622 Acute embolism and thrombosis of deep veins of left upper extremity (principal)
CPT/HCPCS: 93971

== ENCOUNTER 2022-06-04 01:59 | Inpatient (IN) | payer MEDICARE, SELFPAY ==
[2022-06-04] VITALS (26 sets, daily range): BP systolic 103–149; BP diastolic 63–87; PULSE 63–94; RESP 13–26; TEMP 36.1–37.7; O2SAT 92–98; BMI 40.8
--- NOTE | ~2022-06-04 | CT_ITS ---
EXAMINATION: CT abdomen pelvis wo con DATE: 06/04/2022 12:48 INDICATION: Abdominal pain TECHNIQUE: Computed tomography (CT) of the abdomen and pelvis was performed without intravenous contr ast. Automated exposure control and iterative reconstruction technique were employed. The dose-length product was 1247.45 mGy-cm. COMPARISON: 08/09/2020 FINDINGS: Dependent atelectasis in bilateral lower lobes, mild on the left and minimal on the right. Heart size is normal. Atherosclerotic coronary artery calcifications. Mitral annular calcifications. No pericar dial or pleural effusion. Cholecystectomy clips the gallbladder fossa. Liver, spleen, pancreas and bi lateral adrenal glands are normal. A couple nonobstructing left renal stones measuring 6 mm no upper pole calyx and 4 mm at a lower pole calyx. Atherosclerotic calcifications at the right renal hilum. N o ureteral stones or hydronephrosis. Left lower quadrant dialysis catheter with distal tip coiled in the deep pelvis. Bladder is normal. The uterus and left ovary are not identified and have likely been surgically resected. Normal right ovary. Mild to moderate scattered diverticulosis with sigmoid and descending colon predominance and without adjacent inflammatory change to suggest diverticulitis. Sma ll bowel and appendix are normal. No free intraperitoneal gas or fluid. No pathologically enlarged ab dominal or pelvic lymphadenopathy. Dependent body wall edema at the posterior abdomen, pelvis and low er chest. Mild to moderate lumbar and severe lumbosacral facet osteoarthritis. IMPRESSION: 1. Nonobstructing left nephrolithiasis. 2. Diverticulosis. Reviewed, dictated and finalized at location A.
--- NOTE | ~2022-06-04 | US_ITS ---
EXAMINATION: US venous doppler [facility] DATE: 06/04/2022 12:40 INDICATION: Lower limb edema. TECHNIQUE: Grayscale ultrasound images without and with compression and Doppler ultrasound images of the bilateral lower extremity veins were obtained. COMPARISON: Ultrasound 02/25/2021 FINDINGS: The visualized portions of right common femoral vein, profunda (deep) femoral vein, femoral vein, pop liteal vein, peroneal veins, posterior tibial veins, and greater saphenous vein outflow are patent. The visualized portions of left common femoral vein, profunda femoral vein, femoral vein, popliteal v ein, peroneal veins, posterior tibial veins, and greater saphenous vein outflow are patent. IMPRESSION: 1. No deep venous thrombosis. Reviewed, dictated and finalized at location A.
--- NOTE | ~2022-06-04 | XR_ITS ---
EXAMINATION: XR chest 2V DATE: 06/04/2022 02:40 INDICATION: Chest pain. Shortness of breath. TECHNIQUE: Frontal and lateral views of the chest were obtained. COMPARISON: Chest 2 views 04/09/2021, CT abdomen and pelvis 08/09/2020 FINDINGS: There is mild atelectasis in the lower lung zones. No pleural effusion or pneumothorax. The heart size is normal. There are changes of anterior fusion procedure in cervical spine. Surgical cli ps in the right upper quadrant are likely from cholecystectomy. There is a suture anchor in right hum eral head. IMPRESSION: 1. Mild atelectasis in the lower lung zones. Reviewed, dictated and finalized at location A.
--- NOTE | 2022-06-04 02:04 | ECG_ITS ---
Measurements Intervals [place] Rate: 69 P: 39 AL: 193 QRS: -17 QRSD: 86 T: 76 QT: 431 QTc: 463 Interpretive Statements SINUS RHYTHM SEPTAL MYOCARDIAL INFARCTION , OF INDETERMINATE AGE CANNOT RULE OUT INFERIOR INFARCTION, AGE INDETERMINATE ABNORMAL ECG COMPARED TO ECG 08/09/2020 20:14:34 CANNOT RULE OUT INFERIOR INFARCTION Electronically Signed On 06-04-2022 12:32:43 CDT by Siva Wilburn M.D.
[2022-06-04 02:56] LABS: Basophils Absolute Auto 0.1 K/mm3 (0.0-0.1); Basophils Percent Auto 0.9 % (0.2-1.2); Eosinophils Absolute Auto 0.2 K/mm3 (0-0.3); Eosinophils Percent Auto 1.9 % (0-4.4); Hematocrit 43.5 % (37.0-47.0); Hemoglobin 14.2 g/dL (12.0-15.0); Immature Granulocyte Absolute 0.08 K/mm3 (0.00-0.031); Immature Granulocyte Percent A 0.7 % (0-0.5); Lymphocytes Absolute Auto 2.51 K/mm3 (0.9-3.2); Mean Corpuscular HGB Conc 32.6 g/dl (32-36); Mean Corpuscular Hemoglobin 28.7 pg (26-34); Mean Corpuscular Volume 88.1 fl (80-100); Mean Platelet Volume 9.8 fl (7.4-10.4); Monocytes Absolute Auto 0.7 K/mm3 (0.1-0.6); Monocytes Percent Auto 5.8 % (2.6-8.5); Neutrophils Absolute Auto 8.4 K/mm3 (1.3-6.7); Neutrophils Percent Auto 69.7 % (45.5-73.1); Platelet Count Result 279 k/mm3 (150-375); Red Blood Count 4.94 M/mm3 (4.2-5.4); Red Cell Distribution Width 15.5 % (11.5-14.5)
[2022-06-04 03:09] LABS: Alanine Aminotransferase 16 U/L (6-35); Albumin Level 3.8 g/dL (3.5-5.1); Alkaline Phosphatase 83 U/L (38-126); Anion Gap 15 mmol/L (8-16); Aspartate Amino Transferase 22 U/L (14-36); Bilirubin,Total 0.6 mg/dL (0.2-1.3); Blood Urea Nitrogen 37 mg/dL (7-17); Calcium 8.6 mg/dL (8.4-10.2); Carbon Dioxide 22 mmol/L (22-30); Chloride 96 mmol/L (98-107); Estimated CRCL calculation 9 ml/min; Estimated Glomerular Filt Rate 7; Glucose 395 mg/dL (65-110); Lipase 80 U/L (23-300); Potassium 3.5 mmol/L (3.4-5.0); Sodium 133 mmol/L (137-145)
[2022-06-04 03:17] LABS: Prothrombin Time 12.3 Seconds (11.1-14.7)
[2022-06-04] MEDS: MORPHINE SULFATE (*CRX) 4 MG/ML INJ IV PUSH ×2 (03:17→06:24)
[2022-06-04] MEDS: ONDANSETRON INJ 4 MG/2 ML VIAL IV PUSH (03:17)
[2022-06-04 03:18] LABS: Partial Thromboplastin Time 30.5 SECONDS (22.3-36.8)
[2022-06-04 03:20] LABS: Troponin I 0.017 ng/mL (0.000-0.034)
--- NOTE | 2022-06-04 04:04 | ED.CHESTPAIN ---
HPI - Chest Pain General Chief Complaint: Chest Pain Stated Complaint: CP WITH SOB Time Seen by Provider: 06/04/22 02:02 History of Present Illness HPI narrative: Patient is a 66-year-old female who presents ER with chest pain. Central and pressure. Associated with shortness of breath and nausea. She did have 1 episode of emesis here. No fevers or chills or sweats. Does not feel like burning or like acid reflux. Has not had similar symptoms previously. Patient undergoes dialysis through peritoneal catheter. Patient also has diabetes and hyperlipidemia. Related Data Home Medications Medication Instructions Recorded Confirmed insulin glargine 100 unit/mL (3 18 unit subcut QPM 06/19/21 02/03/22 mL) subcutaneous pen insulin lispro 100 unit/mL See Rx Instructions subcut TID 06/19/21 02/03/22 subcutaneous pen furosemide 80 mg tablet 40 mg PO BID 02/03/22 02/03/22 Allergies Allergy/AdvReac Type Severity Reaction Status Date / Time latex Allergy Intermediate Redness of Verified 06/04/22 02:17 Skin PMFSH Past Medical History Medical History (Updated 06/04/22 @ 07:39 by Jamie Horvath MD) Abdominal hernia Anxiety disorder, unspecified ARF (acute renal failure) on chronic [place] BMI 34.0-34.9,adult BMI 36.0-36.9,adult BMI 39.0-39.9,adult Cervical radiculopathy Chronic renal failure, stage 4 (severe) Chronic right-sided low back pain with right-sided sciatica Electrolyte imbalance Essential (primary) hypertension Gastroenteritis Lumbosacral spondylosis with radiculopathy Mixed hyperlipidemia Morbid (severe) obesity due to excess calories Nausea and vomiting Nephrolithiasis Obesity (BMI 30.0-34.9) Type 2 diabetes mellitus with hyperglycemia Surgical History Surgical History History of angioplasty of vein right leg History of appendectomy History of section, classical History of fusion of cervical spine History of partial hysterectomy History of tonsillectomy Hx of cholecystectomy Family History Family History Father Hypertension Cerebrovascular accident Mother Hypertension Cerebrovascular accident Poor circulation of extremity Sibling Cancer Social History Social History Social History: the patient told me that she smokes every day. 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 She has 2 children. She is on disability. She stated that she wants to be a DNR we had long discussion about what a DNR is in again she reiterated that she wants to be a DNR. The patient continues to smoke 1 pack a cigarettes a day for many years. She does not drink any alcohol. She does not use any illicit drugs or marijuana. Smoking packs per day: 1 Smoking cigarettes per day: 20.0 Years smoked: 20 Smoking pack-years: 20.00 Tobacco type: cigarettes Second hand tobacco smoke exposure: No Smoking end date: 01/29/21 Alcohol intake: current Drinks per week: 1 Substance use: current Substance use type: marijuana Other substance usage details: Medical Marijuana edibles Additional occupation/education comments: disabled Gender identity (if verbalized by the patient): Female Sexual Orientation (if Verbalized by the Patient): Straight or Heterosexual Spiritual care concerns: No Exam Narrative: GENERAL: Chronically ill-appearing, well-nourished, and in no acute distress. HEAD: Normocephalic, atraumatic. EYES: PERRL and EOMI. ENT: Mucous membranes moist. CHEST: Clear to auscultation. No respiratory distress. HEART: Regular rate and rhythm. Normal peripheral pulses. ABDOMEN: Soft, nontender, nondistended, peritoneal dialysis catheter present EXTREMITIES: Normal range of motion. 2+ edema. SKIN: Warm, dry, no rash. NEURO: Alert and oriented x
[2022-06-04] MEDS: INSULIN HUMAN REGULAR (*BKC) 100 UNITS/ML 10 UNITS IV PUSH (05:36)
[2022-06-04 05:43] LABS: Glucose Point of Care 450 mg/dl (65-105)
--- NOTE | 2022-06-04 06:16 | PC.NURSE ---
Wrong order entered for propofol. Order canceled. not given.
[2022-06-04 06:28] LABS: SARS-CoV-2 RNA PCR Negative
[2022-06-04] MEDS: HEPARIN SODIUM 5,000 UNITS/ML VIAL 4000 UNITS IV PUSH ×3 (06:48→17:01)
[2022-06-04] MEDS: HEPARIN SOD/D5W 100 UNITS/ML 25,000 UNITS/250 ML BAG 8 UNITS IV CONT (06:50)
[2022-06-04 06:56] LABS: Glucose Point of Care 393 mg/dl (65-105)
--- NOTE | 2022-06-04 09:29 | PM.IMHP ---
H&P: HPI History of Present Illness Date/Time: 06/04/22 09:29 Chief Complaint: Chest pain Narrative: 66yo female with ESRD on PD, HTN, HLD and tobacco abuse here for chest pain. Patient denies any history of coronary disease, CHF, CVA or PAD. She has never had a stress test. She is alert and mostly oriented. She initially denied having chest pain and states that she was having left lower quadrant abdominal pain but later provides a history that on the day prior to admission, she had sudden onset of left-sided chest pain she describes as stabbing. She was diaphoretic with shortness of breath. She had nausea and vomiting. There was no radiation of the pain. No arm, neck or back pain. She continued to complain of left lower quadrant pain. She denied any fever, chills. No history of bleeding ulcers. She states she was told not to take aspirin in the form of NSAID. She has end-stage renal disease on peritoneal dialysis 8 hours a day, 7 days a week. She did not get her treatment last night prior to coming to the emergency room. She has been on dialysis for about 6 months. She does have chronic lower extremity edema right worse than left and states her legs look better today. She also has diabetes with an A1c in the 8 range. Glucose runs in the low 100s but noted that it was 300 on the day prior to admission. She continues to smoke 2-3 cig per day, 3 days a week. She did smoke up to 1 pack per day and has smoked for 37 years. EMS was called and arrived in the community integration specialist hours of admission. Patient had been complaining stabbing chest pain midsternal which began about an hour prior to calling. Vital signs were stable. Patient was brought to emergency room for evaluation. In the ED, patient's vital signs remained stable. EKG showed QS in V1-V3, normal sinus rhythm. No significant change from an EKG from 2019. Chest x-ray showed mild atelectasis in the lower lung laws. White count was elevated at 12K. Sodium 133, BUN 37 and creatinine 6.0. Glucose was 395. LFTs normal. Troponin has climbed to 4.76. Lipase is normal. COVID was negative. Patient refused aspirin. She was given a dose of morphine and patient states her chest pain resolved after that. She was given insulin as well. She was started on heparin drip. She was admitted for further care. She is chest pain-free currently. She is alert and mostly oriented but has difficulty providing clear history. On chart review it appears that she does have PAD. It also appears that she has had a stress test that was negative in 2019. Review of Systems Review of Systems: Patient has been having episodes of involuntary muscle spasms that is currently being worked up by her primary care doctor. Does complain of headaches which began the day prior to admission. Does have chronic numbness in her hands and feet. No history of bleeding ulcers. She has not had a colonoscopy. Her last bowel movement was yesterday. No melena or hematochezia. She does void daily and does have urgency which is chronic. She denies any dysuria or hematuria. No vaginal discharge. All systems reviewed & are unremarkable except as noted in HPI and below PMFSH Past Medical History Medical History (Updated 06/04/22 @ 09:58 by Ángel Coulter MD) Abdominal hernia Anxiety disorder, unspecified Ataxia Cervical radiculopathy Chronic right-sided low back pain with right-sided sciatica ESRD (end stage renal disease) on dialysis Essential (primary) hypertension Lumbosacral spondylosis with radiculopathy Mixed hyperlipidemia Morbid (severe) obesity due to excess calories Nephrolithiasis PAD (peripheral artery disease) Type 2 diabetes mellitus with hyperglycemia Surgical History Surgical History History of angioplasty of vein right leg History of appendectomy History of section, classical History of fusion of cervical spine History of
--- NOTE | 2022-06-04 09:36 | ECG_ITS ---
Measurements Intervals [place] Rate: 77 P: 49 VT: 186 QRS: -13 QRSD: 87 T: 94 QT: 409 QTc: 464 Interpretive Statements SINUS RHYTHM NONSPECIFIC ST & T-WAVE ABNORMALITY CANNOT RULE OUT SEPTAL INFARCTION CANNOT RULE OUT INFERIOR INFARCTION, AGE INDETERMINATE ABNORMAL ECG COMPARED TO ECG 06/04/2022 02:11:22 NO SIGNIFICANT CHANGE Electronically Signed On 06-04-2022 12:52:22 CDT by Siva Wilburn M.D.
--- NOTE | 2022-06-04 10:13 | PM.CNCAR ---
Assessment and Plan Assessment and plan (1) Non-ST elevation DC (NSTEMI): Code(s): I21.4 - Non-ST elevation (NSTEMI) myocardial infarction Status: Acute Assessment and Plan: Patient presents with acute onset a chest pain, nausea, vomiting and transient diaphoresis with elevated troponin but without ST elevation consistent with non ST elevation DC. she had a negative stress test 2009 without prior documented CAD. However, given patient's multiple risk factors and history of peripheral arterial disease with prior to mention it is very likely she has underlying CAD. Coronary angiography advised delineation of her coronary anatomy. Discussed risks, benefits and alternatives to the patient at length including but not limited to bleeding, volume overload/CHF, arrhythmias, bleeding/hematoma, stroke, myocardial infarction, and or . Explained to the patient that in order to proceed with coronary angiography and intervention our interventionalists require her to rescind DNR status and to be a full code in association with the procedure in order to optimize appropriate management. Informed the patient we respect her decision with regards to DNR status but during the procedure any associated complication or clinical event must be managed as appropriate at that time. If she wishes to return to DNR status subsequently that is her prerogative. Patient verbalized understanding of this concept and agreed to return to full code status at this time in anticipation for coronary angiography. Discussed case with Dr. Dixon of Interventional Cardiology. As patient is hemodynamically stable and completely asymptomatic at this time in light of clinical lower extremity edema as well as abdominal pain further workup for possibility of peritonitis and lower extremity DVT underway per primary service. Plan to keep patient NPO after midnight for coronary angiography in a.m.. Patient verbalized understanding and agreed with plan of care. Coronary angiography may be performed on an urgent/emergent basis if symptoms recur and/or are refractory. Patient is comfortable with plan of care. Continue aspirin, statin, heparin infusion. Telemetry. 2D echocardiogram to assess LV size/function, wall motion abnormalities, valve pathology pulmonary pressures. Recommendations to follow. Patient may eat now NPO after midnight for coronary angiography in a.m.. (2) PAD (peripheral artery disease): Code(s): I73.9 - Peripheral vascular disease, unspecified Status: Acute Assessment and Plan: Stable at present. Further workup as appropriate as an outpatient. Access remains a potential issue given right lower extremity obstructive disease with history of remote intervention. Caution with regards to potential for arterial access if patient requires hemodialysis in the future. While right radial access may be an option given her peripheral arterial disease caution will be exercised as discussed. (3) Abdominal pain: Qualifiers: Abdominal location: periumbilical Qualified Code(s): R10.33 - Periumbilical pain Code(s): R10.9 - Unspecified abdominal pain Status: Acute Assessment and Plan: Reproducible abdominal pain concerning for possible peritonitis although clinically appears somewhat less likely based on laboratory studies. Further workup per primary service. (4) Hypertension associated with type 2 diabetes mellitus: Code(s): E11.59 - Type 2 diabetes mellitus with other circulatory complications; I15.2 - Hypertension secondary to endocrine disorders Status: Acute Assessment and Plan: Stable, no acute issues. (5) Mixed diabetic hyperlipidemia associated with type 2 diabetes mellitus: Code(s): E11.69 - Type 2 diabetes mellitus with other specified complication; E78.2 - Mixed hyperlipidemia Status: Acute Assessment and Plan: Continue rosuvastatin. Check fasting lipid profile. Goal LDL less
[2022-06-04] MEDS: ASPIRIN 81 MG CHEWABLE TABLET 324 MG PO (11:03)
[2022-06-04 12:16] LABS: Glucose Point of Care 334 mg/dl (65-105)
[2022-06-04] MEDS: INSULIN ASPART (*BKC) 100 UNITS/ML SUB-Q ×2 (12:49→17:33)
--- NOTE | 2022-06-04 14:32 | ECHO_ITS ---
Patient Info Name: Arlen Lomeli Age: 66 years : 1955 Gender: Female Ht: 60 in Wt: 209 lbs BSA: 2.06 m2 HR: 78 bpm BP: 121 / 71 mmHg Heart Rhythm: Sinus Rhythm Technical Quality: Poor Exam Date: 06/04/2022 3:24 PM Exam Location: [facility] Exam Room: 209 Patient Status: Inpatient Admit Date: 06/04/2022 Staff Ordering Physician: Siva Wilburn MD [employer]ocational [employer] Teacher: Niyah Aguilar RDCS Attending Provider: Kyara Castro DO Referring Physician: Akila SOUZA; Exam Type: CA echo dop color flow w con Study Info Indications - NSTEMI ESRD R07.89 - Other chest pain Complete two-dimensional, color flow and Doppler transthoracic echocardiogram is performed with contrast to opacify the left ventricle and to improve the deliniation of the left ventricle endocardial borders. Contrast/Agitated Saline Contrast/Ag. Saline: Definity Amount: 2.00 ml Administered By: Niyah Aguilar [facility] Existing IV Access: Yes IV Access Condition: patent with no signs of infiltration Reason for Poor Study: patient body habitus Summary 1. Left ventricular chamber dimension is normal. 2. Left ventricular systolic function is normal, estimated at 65-70%. 3. There is mildly increased left ventricular wall thickness. 4. The left ventricular diastolic function is grade I diastolic dysfunction. 5. There is no aortic valve stenosis. 6. There is trace tricuspid valve regurgitation. 7. Mild pulmonary hypertension, estimated pulmonary arterial systolic pressure is 41 mmHg. 8. There is trace mitral valve regurgitation. 9. There is a small pericardial effusion with fibrinous material within pericardial space. Left Ventricle Left ventricular chamber dimension is normal. Left ventricular systolic function is normal, estimated at 65-70%. There is mildly increased left ventricular wall thickness. The left ventricular diastolic function is grade I diastolic dysfunction. Right Ventricle Right ventricular chamber dimension is normal. Right ventricular systolic function is normal. Left Atria Left atrial chamber dimension is normal. Right Atria Right atrial chamber dimension is normal. Aortic Valve The aortic valve is not well visualized. There is no aortic valve stenosis. There is no aortic valve regurgitation. There is mild aortic valve calcification. Pulmonic Valve The pulmonic valve is not well visualized. Mitral Valve The mitral valve has thickened leaflets and calcified leaflets. There is trace mitral valve regurgitation. The mitral valve annulus is severely calcified. Tricuspid Valve The tricuspid valve leaflets are normal. There is trace tricuspid valve regurgitation. Mild pulmonary hypertension, estimated pulmonary arterial systolic pressure is 41 mmHg. Pericardium/Pleural The pericardium appears epicardial fat pad. There is a small pericardial effusion with fibrinous material within pericardial space. Inferior Vena Cava Normal inferior vena cava with >50% collapse upon inspiration consistent with normal right atrial pressure, 5 mmHg. Aorta The aortic root size at the sinus of Valsalva is normal. There is mild-moderate aortic atherosclerosis. Left Ventricular Outflow Tract Name Value Normal
[2022-06-04] MEDS: PERFLUTREN LIPID MICROSPHERES 1.5 ML VIAL DILUTED TO 10 ML TOTAL VOLUME IV PUSH (15:48)
--- NOTE | 2022-06-04 15:49 | IVDEFINITY ---
Prior to administration of IV Definity the patient was educated on the risks and benefits of the imaging enhancing agent including potential adverse side effects. The patient verbalized understanding. Allergies were verified. No exclusion criteria were identified and at least one of the following inclusion criteria were met: 1) physician request, 2) patient technically difficult to image (per the [place] [employer] guidelines of two or more segments not discernable within the apical view), or 3) questionable left ventricular function. ?
[2022-06-04 16:45] LABS: Partial Thromboplastin Time 48.6 SECONDS (22.3-36.8)
[2022-06-04 16:46] LABS: Cholesterol 213 mg/dL (0-200); HDL Direct 50 mg/dL; Triglycerides 473 mg/dL (<150)
[2022-06-04 16:57] LABS: LDL Cholesterol Direct 75 mg/dL
[2022-06-04 17:00] LABS: Glucose Point of Care 218 mg/dl (65-105)
[2022-06-04] MEDS: FUROSEMIDE 80 MG TABLET PO (17:22)
[2022-06-04] MEDS: METOPROLOL SUCCINATE EXT REL 100 MG TABCR PO (17:23)
[2022-06-04] MEDS: GABAPENTIN 100 MG CAPSULE PO (17:25)
[2022-06-04 17:52] LABS: Folic Acid 5.6 ng/mL (2.76->20)
--- NOTE | 2022-06-04 18:11 | PM.CNNEP ---
Assessment and Plan Additional Plan 1. Arlen has end-stage renal disease. This is most likely due to diabetes and hypertension. She has done well on peritoneal dialysis. It sounds like her fluid burden has decreased gradually. She usually uses 2.5% Dianeal. Occasionally she will use of 4.25% if she has a lot of fluid on but has not had do this lately. we will continue peritoneal dialysis. She does not think she has a last fill so I will not give her this. 2. The patient has chest pain. Cardiology is seeing the patient. Her troponins are quite high. She is on a heparin drip. Cardiology mentions a cardiac catheterization tomorrow. 3. The patient has diabetes. She is on Accu-Cheks and sliding-scale insulin per hospitalist. 4. The patient has hypertension. Her blood pressure is under pretty good control right now. 5. The patient Does not have anemia. hemolobin is 14. 6. The patient has renal osteodystrophy. Will check a renal panel in the morning. 7. The patient continues to smoke. She is trying to quit. Her sisters are trying to get her to quit as well. History of Present Illness Reason for Consult Consult date: 06/04/22 Chief Complaint Chief complaint: chest pain History of Present Illness Narrative: MARBIN is a very pleasant 66-year-old lady who has multiple medical problems including end-stage renal disease for about the last 8 months, the 1st 2 months on hemodialysis and the last 6 months on peritoneal dialysis, hypertension, hyperlipidemia, tobacco abuse, anxiety, ataxia, cervical radiculopathy, sciatica, nephrolithiasis, peripheral arterial disease and diabetes. The patient has been doing well on peritoneal dialysis. She has had no flow problems. Her fluid is clear. No pain in the belly. She came in the hospital yesterday because of chest pain. This was in the center of her chest. Is little more on the left than on the right. It was stabbing. She had sweating and shortness of breath. This was going on for up about a day before her admission. It came on rather suddenly she was talking with her sister on the phone. She denies a cough or fever. She has chronic swelling in her lower extremities. Right is always greater than left. This is been going on for about 5 or 6 months. She had a venous Doppler in the past which ruled out a blood clot. She says that the swelling is much better now than it was a month ago or so. Review of Systems Constitutional: Constitutional: Reports no additional constitutional complaints Eyes: Eyes: Reports no additional eye complaints ENT: Reports system reviewed and no additional complaints, except as documented Cardiovascular: Cardiovascular: Reports no additional cardiovascular complaints Respiratory: Respiratory: Reports no additional respiratory complaints Gastrointestinal: Gastrointestinal: Reports no additional gastrointestinal complaints Genitourinary: Genitourinary: Reports no additional female genitourinary complaints Musculoskeletal: Musculoskeletal: Reports no additional musculoskeletal complaints Integumentary/Breasts: Skin/Breast: Reports system reviewed and no additional complaints, except as docu Neurologic: Reports system reviewed and no additional complaints, except as documented Psychiatric: Psychiatric: Reports no additional psychiatric complaints Endocrine: Endocrine: Reports no additional endocrine complaints PMFSH Past Medical History Medical History Abdominal hernia Anxiety disorder, unspecified Ataxia Cervical radiculopathy Chronic right-sided low back pain with right-sided sciatica ESRD (end stage renal disease) on dialysis Essential (primary) hypertension Lumbosacral spondylosis with radiculopathy Mixed hyperlipidemia Morbid (severe) obesity due to excess calories Nephrolithiasis PAD (peripheral artery disease) Type 2 diabetes mellitus with hyperglycemia
--- NOTE | 2022-06-04 18:22 | PM.EVENT ---
Event Note Event Note Event Note: The patient is on peritoneal dialysis. She is tolerating this well. She was seen at 5:45 p.m.
[2022-06-04 20:38] LABS: Glucose Point of Care 255 mg/dl (65-105)
[2022-06-04] MEDS: ALPRAZolam (*CRX) 0.5 MG TABLET 1 MG PO (20:41)
[2022-06-04] MEDS: HYDROcodone/acetaminophen (*CRX) 5-325 MG TABLET 1 TAB PO (20:41)
[2022-06-04] MEDS: INSULIN GLARGINE (*BKC) 100 UNITS/ML 18 UNITS SUB-Q (20:41)
[2022-06-04] MEDS: PANTOPRAZOLE 40 MG TABLET PO (20:41)
[2022-06-04] MEDS: TOLNAFTATE 1% POWDER 45 GM BTL 1 APPLIC TOPICAL (20:42)
[2022-06-04 22:23] LABS: Free T4 Free Thyroxine Reflex 0.74 ng/dL (0.78-2.19)
[2022-06-04 22:35] LABS: Hemoglobin A1C 11.4 % (<5.7)
[2022-06-04 23:16] LABS: Appearance Urine Clear (Clear); Bilirubin Urine Negative (Negative); Blood Urine Trace-lysed (Negative); Color Urine Yellow (Yellow); Glucose Urine UA 2+ mg/dL (Negative); Ketones Urine Negative (Negative); Leukocyte Esterase Ur Negative LEU/UL (Negative); Nitrate Urine Negative (Negative); Protein Urine 3+ mg/dL (Negative); Specific Grav Ur 1.015 (1.001-1.035); Urobilinogen Urine 0.2 mg/dL (<2.0); pH Urine 8.5 (5.0-9.0)
[2022-06-04 23:22] LABS: Bacteria Urine Trace /hpf; RBC Urine 0-2 /hpf (0-2); Squamous Epithelial Cell Urine Few /hpf (Few); Transitional Epi Cells Urine Rare /hpf (None Seen); WBC Urine 16-20 /hpf
[2022-06-04 23:34] LABS: Add Urine Microscopic? YES
[2022-06-05] VITALS (23 sets, daily range): BP systolic 100–148; BP diastolic 67–96; PULSE 74–87; RESP 12–22; TEMP 36.2–36.7; O2SAT 91–100
[2022-06-05 00:04] LABS: Partial Thromboplastin Time 58.6 SECONDS (22.3-36.8)
[2022-06-05] MEDS: HEPARIN SODIUM 5,000 UNITS/ML VIAL 4000 UNITS IV PUSH (00:32)
[2022-06-05] MEDS: HEPARIN SOD/D5W 100 UNITS/ML 25,000 UNITS/250 ML BAG 15 UNITS IV CONT (03:44)
[2022-06-05 06:14] LABS: Basophils Absolute Auto 0.1 K/mm3 (0.0-0.1); Basophils Percent Auto 0.7 % (0.2-1.2); Eosinophils Absolute Auto 0.2 K/mm3 (0-0.3); Hematocrit 44.4 % (37.0-47.0); Hemoglobin 14.2 g/dL (12.0-15.0); Immature Granulocyte Absolute 0.07 K/mm3 (0.00-0.031); Immature Granulocyte Percent A 0.6 % (0-0.5); Lymphocytes Absolute Auto 3.28 K/mm3 (0.9-3.2); Lymphocytes Percent Auto 27.9 % (18.3-44.2); Mean Corpuscular Hemoglobin 28.8 pg (26-34); Mean Corpuscular Volume 90.1 fl (80-100); Monocytes Absolute Auto 0.7 K/mm3 (0.1-0.6); Monocytes Percent Auto 6.2 % (2.6-8.5); Neutrophils Absolute Auto 7.4 K/mm3 (1.3-6.7); Neutrophils Percent Auto 62.6 % (45.5-73.1); Platelet Count Result 270 k/mm3 (150-375); Red Blood Count 4.93 M/mm3 (4.2-5.4); Red Cell Distribution Width 15.6 % (11.5-14.5); White Blood Count 11.8 K/mm3 (4.5-10.0)
[2022-06-05 06:25] LABS: Partial Thromboplastin Time 57.2 SECONDS (22.3-36.8)
[2022-06-05 06:29] LABS: Alanine Aminotransferase 36 U/L (6-35); Albumin Level 3.6 g/dL (3.5-5.1); Alkaline Phosphatase 84 U/L (38-126); Anion Gap 13 mmol/L (8-16); Aspartate Amino Transferase 156 U/L (14-36); Bilirubin,Total 0.3 mg/dL (0.2-1.3); Blood Urea Nitrogen 40 mg/dL (7-17); Carbon Dioxide 23 mmol/L (22-30); Chloride 94 mmol/L (98-107); Estimated CRCL calculation 9 ml/min; Estimated Glomerular Filt Rate 7; Glucose 396 mg/dL (65-110); Magnesium 1.9 mg/dL (1.6-2.3); Phosphorus 7.5 mg/dL (2.5-4.5); Potassium 3.1 mmol/L (3.4-5.0); Sodium 130 mmol/L (137-145)
[2022-06-05] MEDS: HEPARIN SODIUM 5,000 UNITS/ML VIAL 2500 UNITS IV PUSH (06:49)
[2022-06-05 06:59] LABS: Hepatitis B Surface Antigen Negative (Negative)
[2022-06-05 07:17] LABS: Hepatitis B Surface Anti Res Positive
[2022-06-05 08:23] LABS: Glucose Point of Care 382 mg/dl (65-105)
[2022-06-05 09:10] LABS: Creatine Kinase 1007 U/L (30-135)
[2022-06-05 09:19] LABS: Appearance Peritoneal Fluid Clear (Clear); Color Peritoneal Fluid Colorless (Colorless); Source Peritoneal Fluid Peritoneal Fluid
[2022-06-05 09:20] LABS: Lymphocytes Peritoneal Fluid 36 %; Monocytes Peritoneal Fluid 36 %; Neutrophils Peritoneal Fluid 28 % (0-25); Nucleated Cells Peritoneal Flu 126 /uL (0-500); RBC Peritoneal Fluid 84 /uL (0-100000)
--- NOTE | 2022-06-05 09:26 | PM.IMPN ---
Progress Note: A&P Assessment and Plan (1) Non-ST elevation OK (NSTEMI): Code(s): I21.4 - Non-ST elevation (NSTEMI) myocardial infarction Status: Acute Assessment and Plan: EKG showing no acute changes. Troponin elevated to 69. She was agreeable with aspirin which was started. LHC performed earlier today was reviewed. Patient had normal systolic function normal wall motion. She had a chronic total occlusion of the right coronary artery with [id number] collaterals. She has a high-grade stenosis at the ostial and proximal diagonal branch. Continue aspirin. Plavix is added. Patient is high risk for revascularization. Ongoing discussion about next steps. Continue Crestor. Continue metoprolol. (2) ESRD (end stage renal disease) on dialysis: Code(s): N18.6 - End stage renal disease; Z99.2 - Dependence on renal dialysis Status: Acute Assessment and Plan: Patient with end-stage renal disease. She still makes urine. Stable. Continue peritoneal dialysis. Appreciate Nephrology input. (3) PAD (peripheral artery disease): Code(s): I73.9 - Peripheral vascular disease, unspecified Status: Acute Assessment and Plan: As above. Continue Crestor and aspirin. Smoking cessation is a priority. (4) Essential (primary) hypertension: Code(s): I10 - Essential (primary) hypertension Status: Chronic Assessment and Plan: Patient's blood pressure was reviewed on 06/05 Blood pressure remains well controlled. Will continue current medications. (5) Mixed hyperlipidemia: Code(s): E78.2 - Mixed hyperlipidemia Status: Chronic Assessment and Plan: LFTs within normal limits. Continue Crestor. (6) Type 2 diabetes mellitus with hyperglycemia: Qualifiers: Diabetes mellitus watermelon inspector insulin use: without watermelon inspector use Qualified Code(s): E11.65 - Type 2 diabetes mellitus with hyperglycemia Code(s): E11.65 - Type 2 diabetes mellitus with hyperglycemia Status: Acute Assessment and Plan: A1c 11.4 to suggest poor control at home. Glucose poorly controlled on admission with a glucose of 395. Glucose remains poorly controlled. Continue AccuCheks covering with sliding scale. Hypoglycemia protocol available as needed. Advance Lantus. (7) Abdominal pain: Qualifiers: Abdominal location: periumbilical Qualified Code(s): R10.33 - Periumbilical pain Code(s): R10.9 - Unspecified abdominal pain Status: Acute Assessment and Plan: Patient having left-sided abdominal pain. CT Abd/Pelvis not showing any acute process. White count slightly elevated at 12K and unchanged. Peritoneal fluid not consistent with peritonitis. Cultures pending. Follow (8) Tobacco abuse: Code(s): Z72.0 - Tobacco use Status: Chronic Assessment and Plan: Patient is educated about the benefits of smoking cessation. Will continue to reinforce this during hospital course. (9) Hypothyroidism: Code(s): E03.9 - Hypothyroidism, unspecified Status: Acute Assessment and Plan: TSH 20. Will add Synthroid today at low-dose. Will advance prior to discharge. Plan DVT prophylaxis: Heparin Code status: DNR Diet: Diabetic, renal diet Subjective Date/time seen: 06/05/22 09:26 Interval history: 66yo female with ESRD on PD, HTN, HLD and tobacco abuse here for chest pain abnd found to have NSTEMI. Patient slept well last night. She denies any chest pain or abdominal pain. She has eaten well since returning from the procedure. Exam Narrative: AF 98.1 148/96 85 12 94% ra Gen -no acute distress lying almost flat in bed Chest -lungs clear anteriorly in the flanks CV -regular rate and rhythm S1-S2. Tele showing 4 runs of NSVT (3-5 beats) Abd -soft. Nontender. Positive bowel sounds. Ext -right groin site dressing is clean and dry. Trace lower extremity p
--- NOTE | 2022-06-05 09:44 | WPDHPUPDATE1 ---
History and Physical Update Update Date/Time: 06/05/22 09:44 History and Physical has been reviewed, including an updated exam of the patient. There are NO changes in the patient's condition. Risks, benefits, and alternatives have been discussed and questions answered. Patient agrees to proceed with procedure.
--- NOTE | 2022-06-05 09:45 | WPDMODSED ---
Moderate Sedation Note-Pt Data Patient Data Diagnosis: nstemi Present Complaint: chest pain, nausea and vomiting Procedure to be performed/Plan: cardiac cath with possible lprevention Allergies Allergy/AdvReac Type Severity Reaction Status Date / Time latex Allergy Intermediate Redness of Verified 06/04/22 02:17 Skin Home Medications Medication Instructions Recorded Confirmed Type nystatin 100,000 unit/gram topical 1 applic topical TID #60 grams 05/22/21 06/04/22 Rx powder insulin glargine 100 unit/mL (3 18 unit subcut HS 06/19/21 06/04/22 History mL) subcutaneous pen insulin lispro 100 unit/mL See Rx Instructions subcut TID 06/19/21 06/04/22 History subcutaneous pen pen needle, diabetic 32 gauge x #100 ea 07/26/21 06/04/22 Rx /32 (TechLITE Pen Needle) flash glucose scanning reader #1 ea 08/01/21 06/04/22 Rx (FreeStyle Kristofer 14 Day Dow) flash glucose sensor (FreeStyle #1 ea 08/01/21 06/04/22 Rx Kristofer 14 Day Sensor kit) metoprolol succinate 100 mg 200 mg PO DAILY #180 tabs 10/16/21 06/04/22 Rx tablet,extended release 24 hr rosuvastatin 10 mg tablet 10 mg PO DAILY #30 tabs 01/20/22 06/04/22 Rx duloxetine 60 mg capsule,delayed 60 mg PO DAILY #90 caps 01/23/22 06/04/22 Rx release furosemide 80 mg tablet 80 mg PO BID 02/03/22 06/04/22 History cyclobenzaprine 5 mg tablet 10 mg PO TID PRN muscle spasm #30 04/28/22 06/04/22 Rx tabs alprazolam 1 mg tablet 1 mg PO TID PRN anxiety #90 tabs 05/12/22 06/04/22 Rx omeprazole 40 mg capsule,delayed 40 mg PO DAILY #30 caps 05/13/22 06/04/22 Rx release magnesium oxide 400 mg (241.3 mg 400 mg PO DAILY #90 tabs 05/23/22 06/04/22 Rx magnesium) tablet Medical Cannabis See Rx Instructions .Route .COMPLEX 06/04/22 06/04/22 History acetaminophen 500 mg capsule 500 mg PO Q6H PRN Pain, Mild 06/04/22 06/04/22 History amlodipine 10 mg tablet 5 mg PO DAILY 06/04/22 06/04/22 History gabapentin 300 mg capsule 100 mg PO TID 06/04/22 06/04/22 History metoclopramide HCl 10 mg tablet 5 mg PO QID PRN nausea and vomiting 06/04/22 06/04/22 History oxycodone 5 mg tablet 5 mg PO Q6H PRN Pain, Moderate 06/04/22 06/04/22 History polyethylene glycol 3350 17 17 g PO DAILY 06/04/22 06/04/22 History gram/dose oral powder senna-docusate sodium tablet See Rx Instructions .Route .COMPLEX 06/04/22 06/04/22 History Current Medications: Active Medications Acetaminophen (Acetaminophen 325 Mg Tablet) 650 mg PO Q4H PRN PRN Reason: Mild Pain (1-3) or Fever Hydrocodone Bitart/Acetaminophen (Hydrocodone/Acetaminophen (*Crx) 5-325 Mg Tablet) 1 tab PO Q4H PRN PRN Reason: Pain Rated 4-6 Last Admin: 06/04/22 20:41 Dose: 1 tab Alprazolam (Alprazolam (*Crx) 0.5 Mg Tablet) 1 mg PO TID PRN PRN Reason: anxiety Last Admin: 06/04/22 20:41 Dose: 1 mg Aspirin (Aspirin 81 Mg Chewable Tablet) 81 mg PO DAILY@0800 [facility] Cyclobenzaprine HCl (Cyclobenzaprine Hcl 10 Mg Tablet) 10 mg PO TID PRN PRN Reason: muscle spasm Dextrose (Dextrose 50% 25 Gm/50 Ml Syringe) 12.5 gm IV PUSH PRN PRN; Protocol PRN Reason: Hypoglycemia Duloxetine HCl (Duloxetine Hcl 60 Mg Capsule.Dr) 60 mg PO DAILY [facility] Furosemide (Furosemide 80 Mg Tablet) 80 mg PO BID [facility] Last Admin: 06/04/22 17:22 Dose: 80 mg Gabapentin (Gabapentin 100 Mg Capsule) 100 mg PO TID [facility] Last Admin: 06/04/22 17:25 Dose: 100 mg Glucagon (Glucagon For Inj 1 Mg Vial) 1 mg IM PRN PRN; Protocol PRN Reason: Hypoglycemia Glucose (Glucose Oral Gel 15 Gm Of Glucse In 37.5 Gm Tube) 15 gm PO PRN PRN; Protocol PRN Reason: Hypoglycemia Heparin Sodium (Porcine) (Heparin Sodium 5,000 Units/Ml Vial) 4,000 units IV PUSH PRN PRN PRN Reason: aPTT less than 55 seconds Last Admin: 06/05/22 00:32 Dose: 4,000 units Heparin Sodium (Porcine) (Heparin Sodium 5,000 Units/Ml Vial) 2,500 units IV PUSH PRN PRN PRN Reason: aPTT 55 - 70 seconds Last Admin: 06/05/22 06:49 Dose: 2,500 units Heparin Sodium/Dextrose (Heparin Sodium/D5w
--- NOTE | 2022-06-05 09:54 | WPDCARDPROC ---
Cardiac Cath Procedure Note Date of procedure:: 06/05/22 Performing physician:: Janice Isabel MD Indication:: elevated troponins Brief clinical history:: this 66-year-old patient with past medical history of end-stage renal disease on peritoneal dialysis, tobacco use, peripheral arterial disease, obesity who presents to the hospital with left lower quadrant abdominal pain, left chest pain, nausea and vomiting. Initial troponin was 0.017 then 4 and this morning to 69. EKG shows inferior Q-waves and poor R-wave progression. She described the chest pain as sharp intermittent pain lasting seconds. her echocardiogram showed no wall motion abnormalities and in the ejection fraction 65%. she has chronic leukocytosis. Procedure Procedure performed:: 1-Moderate sedation that started at 9:08 a.m.and ended at 9:40 a.m. with total duration 32 minutes using2 mg of Versed and 75mcg fentanyl. The registered nurse was ewa chavez. 2-Selective left and right coronary angiogram. 3-Left heart catheterization with measurement of LVEDP and measurement of gradient across aortic valve. 3- LV angiogram. 4-Right common femoral arterial angiogram. 5-Deployment of 6 [place] Angio-Seal. Sedation/Medication given:: Moderate sedation. Access site:: Right common femoral artery. Estimated blood loss:: 10cc Procedure note:: After informed consent patient was brought in to biology laboratory assistant with the was draped and prepped in usual manner. Moderate sedation was given and the right groin was infiltrated using 1% lidocaine. Five [place] sheath was obtained using micropuncture needle and the modified Seldinger technique. Selective left coronary angiogram was done using JL4 catheter with the tip of the catheter placed in the left main coronary artery. Selective right coronary angiogram was done using JR4 catheter with the tip of the catheter placed to the right coronary artery. After that 5 [place] pigtail catheter was advanced across the aortic valve into the left ventricle with measurement of LVEDP and measurement of gradient across aortic valve. LV angiogram done as well. Right common femoral arterial angiogram was done. Findings:: 1- left coronary artery is a large artery that divides into large LAD, Small circumflex artery. There is diffuse 30% distal left main. Left main has calcification. 2- left anterior descending artery is a large artery that runs and wraps around the apex. Diffusely calcified proximally and in the mid segment. Tortuous. his large diagonal branch that has diffuse 60% proximally followed by 80% filled by aneurysmal segment. The diagonal branch supplies a medium size septal branch that has ostial 90% 3- leftcircumflex artery is a small artery with diffuse 50% 4- right coronary artery is totally occluded with extensive [id number] collaterals. It is dominant. 5- LVEDP was 25 mm Hgand no gradient across aortic valve. 6- opening arterial pressure was and 60/80 and closing pressure was 120/80 7- right femoral artery angiogram shows no significant disease in the right common femoral artery. there is some mild calcification. 8- LV angiogram shows normal ejection fraction 65% with no wall motion abnormalities. Conclusion:: - Normal LV systolic function with normal wall motion. - chronic total occlusion of the right coronary artery with [id number] collaterals. - high-grade stenosis ostial and proximal diagonal branch. Assessment and Plan Assessment and plan (1) Elevated troponin: Code(s): R77.8 - Other specified abnormalities of plasma proteins Status: Acute Plan - continue aspirin. - add Plavix. - repeat troponin. - we discussed options to revascularize the diagonal branch. it is high risk due to proximity to LAD and also because the presents of some calcification in addition that the diagonal appears aneurysmal post the stenosis. - high-intensity statin
[2022-06-05] MEDS: LEVOTHYROXINE SODIUM 25 MCG TABLET PO (10:56)
[2022-06-05] MEDS: CLOPIDOGREL BISULFATE 75 MG TABLET PO (11:06)
[2022-06-05] MEDS: ROSUVASTATIN 10 MG TABLET PO ×2 (11:22→12:39)
[2022-06-05] MEDS: METOPROLOL SUCCINATE EXT REL 100 MG TABCR PO (11:23)
[2022-06-05 11:50] LABS: Glucose Point of Care 334 mg/dl (65-105)
--- NOTE | 2022-06-05 12:16 | PC.NURSE ---
[id number]- to cardiac wood preserving plant laborer for procedure- returned to room- sleeping- awakens to verbal- drowsy-Right groin with dressing CDI- area soft no hematoma- VSS-Right pedal verified with doppler - post op bedrest /activity discussed with pt/
[2022-06-05] MEDS: INSULIN ASPART (*BKC) 100 UNITS/ML 7 UNITS SUB-Q ×2 (12:19→17:36)
[2022-06-05] MEDS: INSULIN ASPART (*BKC) 100 UNITS/ML SUB-Q ×2 (12:20→17:36)
[2022-06-05] MEDS: HYDROcodone/acetaminophen (*CRX) 5-325 MG TABLET 1 TAB PO ×2 (12:37→20:36)
[2022-06-05] MEDS: ASPIRIN 81 MG CHEWABLE TABLET PO (12:39)
[2022-06-05] MEDS: PANTOPRAZOLE 40 MG TABLET PO ×2 (12:40→20:36)
[2022-06-05] MEDS: FUROSEMIDE 80 MG TABLET PO ×2 (12:40→17:29)
[2022-06-05] MEDS: MAGNESIUM OXIDE 400 MG TABLET PO (12:40)
[2022-06-05] MEDS: GABAPENTIN 100 MG CAPSULE PO ×3 (12:40→17:28)
[2022-06-05] MEDS: DULoxetine HCL 60 MG CAPSULE.DR PO (12:41)
[2022-06-05] MEDS: TOLNAFTATE 1% POWDER 45 GM BTL 1 APPLIC TOPICAL ×2 (12:41→20:42)
--- NOTE | 2022-06-05 15:06 | PM.PNNEP ---
Progress Note: A&P Additional Plan 1. Arlen has end-stage renal disease. This is most likely due to diabetes and hypertension. She has done well on peritoneal dialysis. Volume status looks okay. we will continue peritoneal dialysis Same prescription. 2. The patient has chest pain. She had a cardiac catheterization. 3. The patient has diabetes. She is on Accu-Cheks and sliding-scale insulin per hospitalist. 4. The patient has hypertension. systolic is running 120-147. Mostly between 120 and 140. 5. The patient does not have anemia. hemolobin is 14. 6. The patient has renal osteodystrophy. Phos not done. will reorder 7. The patient continues to smoke. She is trying to quit. Her sisters are trying to get her to quit as well. Subjective Date/time seen: 06/05/22 15:06 Interval history: Patient had her cardiac catheterization this morning. She had a stent placed. No chest pain or shortness of breath now. Her dialysis went well last night. Review of Systems Cardiovascular: Cardiovascular: Reports no additional cardiovascular complaints Respiratory: Respiratory: Reports no additional respiratory complaints Gastrointestinal: Gastrointestinal: Reports no additional gastrointestinal complaints Genitourinary: Genitourinary: Reports no additional female genitourinary complaints Exam Narrative: WDWN in NAD skin no rash head ncat lungs clear cor reg no rub abd BS+ nontender and soft ext trace to 1+ bilateral edema. Objective Data Vital Signs Vital Signs: Vital Signs - 24 hr 06/04/22 16:00 06/04/22 17:23 06/04/22 16:00 Temperature 36.8 C Pulse Rate 83 90 77 Respiratory Rate 16 Blood Pressure 149/87 H Pulse Oximetry 93 Oxygen Delivery Oxygen Flow Rate 06/04/22 18:00 06/04/22 20:00 06/04/22 20:00 Temperature 36.7 C Pulse Rate 94 85 81 Respiratory Rate 20 Blood Pressure 128/71 Pulse Oximetry 92 Oxygen Delivery Oxygen Flow Rate 06/04/22 20:00 06/04/22 21:40 06/04/22 23:31 Temperature 36.3 C L Pulse Rate 81 76 87 Respiratory Rate 20 20 Blood Pressure 149/84 H Pulse Oximetry 92 98 Oxygen Delivery Room Air Oxygen Flow Rate 06/05/22 00:00 06/05/22 00:00 06/05/22 02:00 Temperature Pulse Rate 82 82 79 Respiratory Rate 20 Blood Pressure Pulse Oximetry 98 Oxygen Delivery Room Air Oxygen Flow Rate 06/05/22 04:00 06/05/22 04:00 06/05/22 05:29 Temperature Pulse Rate 76 76 85 Respiratory Rate 20 Blood Pressure Pulse Oximetry 98 Oxygen Delivery Room Air Oxygen Flow Rate 06/05/22 04:00 06/05/22 08:17 06/05/22 08:00 Temperature 36.7 C 36.7 C 36.6 C Pulse Rate 80 85 81 Respiratory Rate 12 12 18 Blood Pressure 148/96 H 148/96 H 141/82 H Pulse Oximetry 93 94 Oxygen Delivery Oxygen Flow Rate 06/05/22 10:10 06/05/22 10:00 06/05/22 10:30 Temperature 36.4 C Pulse Rate 78 74 74 Respiratory Rate 14 14 14 Blood Pressure 137/85 124/78 147/93 H Pulse Oximetry 96 95 92 Oxygen Delivery Nasal Cannula Nasal Cannula Room Air Oxygen Flow Rate 3 3 06/05/22 11:23 06/05/22 10:38 06/05/22 11:15 Temperature 36.5 C Pulse Rate 79 76 78 Respiratory Rate 14 16 Blood Pressure 121/85 123/80 Pulse Oximetry 91 98 Oxygen Delivery Room Air Oxygen Flow Rate 06/05/22 11:45 06/05/22 08:15 06/05/22 12:00 Temperature 36.4 C Pulse Rate 77 81 84 Respiratory Rate 16 Blood Pressure 127/75 Pulse Oximetry 100 Oxygen Delivery Oxygen Flow Rate 06/05/22 10:55 06/05/22 14:00 06/05/22 14:00 Temperature 36.3 C L Pulse Rate 80 81 86 Respiratory Rate 14 Blood Pressure 120/67 Pulse Oximetry 96 Oxygen Delivery Oxygen Flow Rate Intake/Output Intake/Output: Intake & Output 06/02/22 06/03/22 06/04/22 06/05/22 23:59 23:59 23:59 23:59 Intake Total 1320 670 Output Total 0 1429 Balance 1320 -759 Meds/Results Medications: Active
[2022-06-05 16:32] LABS: Glucose Point of Care 334 mg/dl (65-105)
[2022-06-05 20:21] LABS: Glucose Point of Care 295 mg/dl (65-105)
[2022-06-05] MEDS: ALPRAZolam (*CRX) 0.5 MG TABLET 1 MG PO (20:36)
[2022-06-05] MEDS: HEPARIN SODIUM 5,000 UNITS/ML VIAL 5000 UNITS SUB-Q (20:36)
[2022-06-05] MEDS: INSULIN GLARGINE (*BKC) 100 UNITS/ML 25 UNITS SUB-Q (20:42)
[2022-06-06] VITALS (10 sets, daily range): BP systolic 95–131; BP diastolic 61–82; PULSE 75–88; RESP 16–20; TEMP 36.4–36.9; O2SAT 87–96
[2022-06-06 04:45] LABS: Basophils Absolute Auto 0.1 K/mm3 (0.0-0.1); Basophils Percent Auto 0.7 % (0.2-1.2); Eosinophils Absolute Auto 0.3 K/mm3 (0-0.3); Eosinophils Percent Auto 2.3 % (0-4.4); Hematocrit 37.3 % (37.0-47.0); Hemoglobin 11.8 g/dL (12.0-15.0); Immature Granulocyte Percent A 0.9 % (0-0.5); Lymphocytes Absolute Auto 3.22 K/mm3 (0.9-3.2); Lymphocytes Percent Auto 30.2 % (18.3-44.2); Mean Corpuscular HGB Conc 31.6 g/dl (32-36); Mean Corpuscular Hemoglobin 28.4 pg (26-34); Mean Corpuscular Volume 89.7 fl (80-100); Mean Platelet Volume 10.2 fl (7.4-10.4); Monocytes Absolute Auto 0.8 K/mm3 (0.1-0.6); Monocytes Percent Auto 7.7 % (2.6-8.5); Neutrophils Absolute Auto 6.2 K/mm3 (1.3-6.7); Neutrophils Percent Auto 58.2 % (45.5-73.1); Platelet Count Result 225 k/mm3 (150-375); Red Blood Count 4.16 M/mm3 (4.2-5.4); Red Cell Distribution Width 15.6 % (11.5-14.5); White Blood Count 10.7 K/mm3 (4.5-10.0)
[2022-06-06 05:06] LABS: Alanine Aminotransferase 24 U/L (6-35); Alkaline Phosphatase 73 U/L (38-126); Anion Gap 12 mmol/L (8-16); Aspartate Amino Transferase 54 U/L (14-36); Bilirubin,Total 0.4 mg/dL (0.2-1.3); Blood Urea Nitrogen 38 mg/dL (7-17); Calcium 8.2 mg/dL (8.4-10.2); Carbon Dioxide 25 mmol/L (22-30); Chloride 96 mmol/L (98-107); Estimated CRCL calculation 9 ml/min; Estimated Glomerular Filt Rate 7; Glucose 233 mg/dL (65-110); Magnesium 1.7 mg/dL (1.6-2.3); Potassium 3.4 mmol/L (3.4-5.0); Sodium 133 mmol/L (137-145)
[2022-06-06] MEDS: LEVOTHYROXINE SODIUM 25 MCG TABLET PO (06:01)
[2022-06-06 07:00] LABS: Albumin Level 2.8 g/dL (3.5-5.1); Anion Gap 11 mmol/L (8-16); Blood Urea Nitrogen 40 mg/dL (7-17); Calcium 8.3 mg/dL (8.4-10.2); Carbon Dioxide 24 mmol/L (22-30); Chloride 95 mmol/L (98-107); Estimated CRCL calculation 9 ml/min; Estimated Glomerular Filt Rate 7; Glucose 230 mg/dL (65-110); Phosphorus 6.3 mg/dL (2.5-4.5); Potassium 3.3 mmol/L (3.4-5.0); Sodium 130 mmol/L (137-145)
[2022-06-06 08:09] LABS: Glucose Point of Care 237 mg/dl (65-105)
[2022-06-06] MEDS: POTASSIUM CHLORIDE 20 MEQ TABLET 40 MEQ PO (09:34)
[2022-06-06] MEDS: ASPIRIN 81 MG CHEWABLE TABLET PO (09:34)
[2022-06-06] MEDS: SENNA/DOCUSATE SODIUM TABLET 2 TAB PO (09:35)
[2022-06-06] MEDS: CLOPIDOGREL BISULFATE 75 MG TABLET PO (09:35)
[2022-06-06] MEDS: HEPARIN SODIUM 5,000 UNITS/ML VIAL 5000 UNITS SUB-Q (09:35)
[2022-06-06] MEDS: METOPROLOL SUCCINATE EXT REL 100 MG TABCR PO (09:35)
[2022-06-06] MEDS: GABAPENTIN 100 MG CAPSULE PO ×2 (09:35→13:42)
[2022-06-06] MEDS: FUROSEMIDE 80 MG TABLET PO (09:36)
[2022-06-06] MEDS: MAGNESIUM OXIDE 400 MG TABLET PO (09:36)
[2022-06-06] MEDS: DULoxetine HCL 60 MG CAPSULE.DR PO (09:36)
[2022-06-06] MEDS: PANTOPRAZOLE 40 MG TABLET PO (09:36)
[2022-06-06] MEDS: TOLNAFTATE 1% POWDER 45 GM BTL 1 APPLIC TOPICAL (09:50)
[2022-06-06] MEDS: INSULIN ASPART (*BKC) 100 UNITS/ML 7 UNITS SUB-Q ×2 (09:50→13:43)
[2022-06-06] MEDS: INSULIN ASPART (*BKC) 100 UNITS/ML SUB-Q ×2 (09:50→13:42)
--- NOTE | 2022-06-06 11:39 | PM.PNNEP ---
Progress Note: A&P Additional Plan 1. Arlen has end-stage renal disease. This is most likely due to diabetes and hypertension. She has done well on peritoneal dialysis. Volume status looks okay. we will continue peritoneal dialysis Same prescription. Discharge to to be determined by Cardiology/hospitalists. 2. The patient has chest pain. She had a cardiac catheterization. 3. The patient has diabetes. She is on Accu-Cheks and sliding-scale insulin per hospitalist. 4. The patient has hypertension. systolic is running 120-147. Mostly between 120 and 140. 5. The patient has a hemoglobin is 11.8. No need for Epogen. 6. The patient has renal osteodystrophy. Phos 6.3. 7. The patient continues to smoke. She is trying to quit. Her sisters are trying to get her to quit as well. Subjective Date/time seen: 06/06/22 11:39 Interval history: Patient feels better today. No chest pain or shortness of breath. Lying flat in bed comfortably. She is on peritoneal dialysis. About 1L was removed by the process. She has no signs of volume overload. She was seen at 10:00 a.m. Exam Narrative: WDWN in NAD skin no rash head ncat lungs clear bilaterally cor reg no rub or gallop abd BS+ nontender and soft ext trace bilateral edema. Objective Data Vital Signs Vital Signs: Vital Signs - 24 hr 06/05/22 11:45 06/05/22 12:00 06/05/22 14:00 Temperature 36.4 C 36.3 C L Pulse Rate 77 84 81 Respiratory Rate 16 14 Blood Pressure 127/75 120/67 Pulse Oximetry 100 96 Oxygen Delivery 06/05/22 14:00 06/05/22 15:00 06/05/22 16:03 Temperature 36.2 C L 36.4 C Pulse Rate 86 79 84 Respiratory Rate 18 16 Blood Pressure 126/74 127/75 Pulse Oximetry 96 Oxygen Delivery Room Air 06/05/22 16:00 06/05/22 16:00 06/05/22 18:00 Temperature 36.3 C L Pulse Rate 79 87 87 Respiratory Rate 18 Blood Pressure 100/73 Pulse Oximetry 98 Oxygen Delivery 06/05/22 20:00 06/05/22 20:00 06/05/22 20:00 Temperature 36.3 C L Pulse Rate 84 80 84 Respiratory Rate 22 H 22 H Blood Pressure 124/84 Pulse Oximetry 95 95 Oxygen Delivery Room Air 06/05/22 21:16 06/06/22 00:00 06/06/22 00:00 Temperature 36.6 C Pulse Rate 86 81 78 Respiratory Rate 20 Blood Pressure 95/68 L Pulse Oximetry 94 Oxygen Delivery 06/06/22 00:00 06/06/22 02:00 06/06/22 04:00 Temperature Pulse Rate 78 75 78 Respiratory Rate 20 Blood Pressure Pulse Oximetry 94 Oxygen Delivery Room Air 06/06/22 04:00 06/06/22 04:00 06/06/22 05:54 Temperature 36.9 C Pulse Rate 78 84 78 Respiratory Rate 20 20 Blood Pressure 129/82 Pulse Oximetry 94 87 L Oxygen Delivery Room Air 06/06/22 07:46 06/06/22 08:00 06/06/22 09:35 Temperature 36.9 C 36.5 C Pulse Rate 78 86 86 Respiratory Rate 20 16 Blood Pressure 129/82 131/69 Pulse Oximetry 96 Oxygen Delivery Intake/Output Intake/Output: Intake & Output 06/03/22 06/04/22 06/05/22 06/06/22 23:59 23:59 23:59 23:59 Intake Total 1320 1150 360 Output Total 0 1429 1235 Balance 9250 -763 -223 Meds/Results Medications: Active Medications Generic Name Dose Route Start Last Admin Trade Name Raúlq PRN Reason Stop Dose Admin Acetaminophen 650 mg 06/04/22 05:26 Acetaminophen 325 Mg Tablet PO Q4H PRN Mild Pain (1-3) or Fever Hydrocodone Bitart/Acetaminophen 1 tab 06/04/22 05:26 06/05/22 20:36 Hydrocodone/Acetaminophen (*Crx) 5-325 Mg Tablet PO 1 tab Q4H PRN Administration Pain Rated 4-6 Alprazolam 1 mg 06/04/22 15:56 06/05/22 20:36 Alprazolam (*Crx) 0.5 Mg Tablet PO 1 mg TID PRN Administration anxiety Aspirin 81 mg 06/05/22 08:00 06/06/22 09:34 Aspirin 81 Mg Chewable Tablet PO 81 mg DAILY@0800 [facility] Administration Clopidogrel Bisulfate 75 mg 06/05/22 11:00 06/06/22 09:35 Clopidogrel Bisulfate 75 Mg Tablet PO 75 mg QAM VAHID Administr
[2022-06-06 12:19] LABS: Glucose Point of Care 281 mg/dl (65-105)
--- NOTE | 2022-06-06 13:32 | PM.PNCARD ---
Progress Note: A&P Assessment and Plan (1) Non-ST elevation ND (NSTEMI): Code(s): I21.4 - Non-ST elevation (NSTEMI) myocardial infarction Status: Acute Plan 66-year-old lady with end-stage renal disease, hypertension and cigarette smoking found to have ischemic heart disease in catheterization procedure yesterday. She has primarily a chronic total occlusion of the right coronary artery with collateral filling as well as some disease in the ostium of diagonal branch of the LAD. Medical treatment of this is recommended. From cardiac perspective she could be discharged today. We will arrange for follow-up in the office with Dr. Wilburn. Wayne Dixon MD [facility] Subjective Date/time seen: Date of service: 06/06/22 13:32 Interval history: Follow-up visit in this 66-year-old woman with: Newly diagnosed coronary artery disease yesterday based on angiographic findings. She has chronic total occlusion of the right coronary artery as well as a significant high-grade lesion at the origin of a diagonal branch of the LAD. Medical therapy of this was recommended. Her chest pain symptoms with which she presented are atypical. Likely discussion with the patient in the room about the angiographic findings and the need for follow-up in the office following discharge. Not having any cardiac symptoms currently. Exam Const: General: comfortable and no acute distress Other: Obese lady talking on the phone no distress HENMT: Mouth: Yes moist mucous membranes Eyes: Sclera: sclerae normal Neck: Neck: supple and no JVD Resp: Effort & Inspection: normal respiratory effort Auscultation: clear to auscultation bilaterally Cardio: Rate: regular rate Rhythm: regular rhythm Other: Soft systolic murmur that does not radiate from the left sternal border GI: GI Palp: Yes Soft to palpation Auscultation: normal bowel sounds Skin: General skin exam: normal color Neuro: Other: Alert and oriented, normal cognition Extrem: Other: No peripheral edema Objective Data Vital Signs Vital Signs: Vital Signs - 24 hr 06/05/22 14:00 06/05/22 14:00 06/05/22 15:00 Temperature 36.3 C L 36.2 C L Pulse Rate 81 86 79 Respiratory Rate 14 18 Blood Pressure 120/67 126/74 Pulse Oximetry 96 96 Oxygen Delivery 06/05/22 16:03 06/05/22 16:00 06/05/22 16:00 Temperature 36.4 C 36.3 C L Pulse Rate 84 79 87 Respiratory Rate 16 18 Blood Pressure 127/75 100/73 Pulse Oximetry 98 Oxygen Delivery Room Air 06/05/22 18:00 06/05/22 20:00 06/05/22 20:00 Temperature 36.3 C L Pulse Rate 87 84 80 Respiratory Rate 22 H Blood Pressure 124/84 Pulse Oximetry 95 Oxygen Delivery 06/05/22 20:00 06/05/22 21:16 06/06/22 00:00 Temperature 36.6 C Pulse Rate 84 86 81 Respiratory Rate 22 H 20 Blood Pressure 95/68 L Pulse Oximetry 95 94 Oxygen Delivery Room Air 06/06/22 00:00 06/06/22 00:00 06/06/22 02:00 Temperature Pulse Rate 78 78 75 Respiratory Rate 20 Blood Pressure Pulse Oximetry 94 Oxygen Delivery Room Air 06/06/22 04:00 06/06/22 04:00 06/06/22 04:00 Temperature 36.9 C Pulse Rate 78 78 84 Respiratory Rate 20 20 Blood Pressure 129/82 Pulse Oximetry 94 87 L Oxygen Delivery Room Air 06/06/22 05:54 06/06/22 07:46 06/06/22 08:00 Temperature 36.9 C 36.5 C Pulse Rate 78 78 86 Respiratory Rate 20 16 Blood Pressure 129/82 131/69 Pulse Oximetry 96 Oxygen Delivery 06/06/22 09:35 06/06/22 08:00 06/06/22 12:00 Temperature 36.4 C Pulse Rate 86 80 Respiratory Rate 16 Blood Pressure 109/61 Pulse Oximetry 94 Oxygen Delivery Room Air Intake/Output Intake/Output: Intake & Output 06/03/22 06/04/22 06/05/22 06/06/22 23:59 23:59 23:59 23:59 Intake Total 1320 1150 360 Output Total 0 8145 2264 Balance 3344 -780 -5174 Meds/Results Medications: Active Medications Generic Name Dose Route Start Last Admin Trade Name Freq
[2022-06-06] MEDS: CALCIUM ACETATE 667 MG TABLET 1334 MG PO (13:42)
--- NOTE | 2022-06-06 14:00 | PM.DS ---
DS: Admitting Diagnosis Discharge Date 06/06/2022 Admitting Diagnosis Chest pain DS: Discharge Diagnosis Discharge Diagnosis (1) Non-ST elevation TN (NSTEMI): Code(s): I21.4 - Non-ST elevation (NSTEMI) myocardial infarction Status: Acute Assessment and Plan: EKG showing no acute changes. Troponin elevated to 69. She was agreeable with aspirin which was started. LHC performed earlier today was reviewed. Patient had normal systolic function normal wall motion. She had a chronic total occlusion of the right coronary artery with [id number] collaterals. She has a high-grade stenosis at the ostial and proximal diagonal branch. Continue aspirin. Plavix is added. Patient is high risk for revascularization. Continue Crestor. Continue metoprolol. Pt advised to quit smoking and do better DM. (2) ESRD (end stage renal disease) on dialysis: Code(s): N18.6 - End stage renal disease; Z99.2 - Dependence on renal dialysis Status: Acute Assessment and Plan: Patient with end-stage renal disease. Continue peritoneal dialysis. (3) PAD (peripheral artery disease): Code(s): I73.9 - Peripheral vascular disease, unspecified Status: Acute Assessment and Plan: As above. Continue Crestor and aspirin. Smoking cessation is a priority. (4) Essential (primary) hypertension: Code(s): I10 - Essential (primary) hypertension Status: Chronic Assessment and Plan: Patient's blood pressure was reviewed on 06/05 Blood pressure remains well controlled. Will continue current medications. (5) Mixed hyperlipidemia: Code(s): E78.2 - Mixed hyperlipidemia Status: Chronic Assessment and Plan: LFTs within normal limits. Continue Crestor. 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 Advance Lantus. (7) Abdominal pain: Qualifiers: Abdominal location: periumbilical Qualified Code(s): R10.33 - Periumbilical pain Code(s): R10.9 - Unspecified abdominal pain Status: Acute Assessment and Plan: Patient having left-sided abdominal pain. CT Abd/Pelvis not showing any acute process. White count slightly elevated at 12K and unchanged. Peritoneal fluid not consistent with peritonitis. Cultures are pending UC and fluid pt really wants to go and cardiology have said she is stable for DC. (8) Tobacco abuse: Code(s): Z72.0 - Tobacco use Status: Chronic Assessment and Plan: Patient is educated about the benefits of smoking cessation. (9) Hypothyroidism: Code(s): E03.9 - Hypothyroidism, unspecified Status: Acute Assessment and Plan: TSH 20. Will add Synthroid today at low-dose. DS: Summary Hospital Course Hospital Course: EKG showing no acute changes. Troponin elevated to 69. She was agreeable with aspirin which was started. LHC performed earlier today was reviewed. Patient had normal systolic function normal wall motion. She had a chronic total occlusion of the right coronary artery with [id number] collaterals. She has a high-grade stenosis at the ostial and proximal diagonal branch. Continue aspirin. Plavix is added. Patient is high risk for revascularization. Continue Crestor. Continue metoprolol. Pt advised to quit smoking and do better DM. Pt to start synthroid medications. Pt to follow with cardiology in clinic. Time Spent with Patient Time attestation: Total time spent providing and/or coordinating discharge services: DS: Data Data Completed and Pending Labs on day of discharge: Labs from last 24 hours 06/06/22
== END 2022-06-06 15:15 | disposition home or self-care (01) | DRG 280 ==
LOC: ANHED 02:09 → ANHIMU 06:17
PROVIDERS: Internal Medicine; Internal Medicine Cardiovascular Disease; Internal Medicine Nephrology; Nurse Practitioner; Admitting Provider Internal Medicine; Emergency Provider Emergency Medicine; PCP Family Medicine; Visit Provider Family Medicine
PROC: 4A023N7 Measurement of Cardiac Sampling and Pressure, Left Heart, Percutaneous Approach (ICD-10-PCS; CPT 93452; principal; 2022-06-05 09:00)
PROC: 4A023N7 Measurement of Cardiac Sampling and Pressure, Left Heart, Percutaneous Approach (ICD-10-PCS; 2022-06-05 09:00)
DX: I21.4 Non-ST elevation (NSTEMI) myocardial infarction (principal); N18.6 End stage renal disease; I12.0 Hypertensive chronic kidney disease with stage 5 chronic kidney disease or end stage renal disease; I73.9 Peripheral vascular disease, unspecified; E11.22 Type 2 diabetes mellitus with diabetic chronic kidney disease; E11.65 Type 2 diabetes mellitus with hyperglycemia; Z20.822 Contact with and (suspected) exposure to COVID-19; E78.2 Mixed hyperlipidemia; R10.33 Periumbilical pain; E03.9 Hypothyroidism, unspecified; F17.210 Nicotine dependence, cigarettes, uncomplicated; M47.897 Other spondylosis, lumbosacral region; M54.12 Radiculopathy, cervical region; F41.9 Anxiety disorder, unspecified; E11.69 Type 2 diabetes mellitus with other specified complication; N25.0 Renal osteodystrophy; Z90.49 Acquired absence of other specified parts of digestive tract; Z99.2 Dependence on renal dialysis; Z98.1 Arthrodesis status; Z79.4 Long term (current) use of insulin; Z66 Do not resuscitate
CPT/HCPCS: 36415; 71046; 74176; 80053; 80061; 80069; 81001; 82533; 82550; 82607; 82746; 82948; 83036; 83690; 83735; 84100; 84439; 84443; 84484; 85025; 85610; 85730; 86706; 87040; 87070; 87075; 87077; 87086; 87186; 87205; 87340; 89051; 90945; 93005; 93458; 93970; 96365; 96366; 96375; 96376; 99291; A9270; C1760; C1887; C1894; C8929; C9803; G0269; G0378; J1644; J1815; J2250; J2270; J2405; J2704; J3010; J7040; Q9957; U0003; U0005

== ENCOUNTER 2022-06-10 14:07 | Outpatient (CLI) | payer MEDICARE, SELFPAY | END 2022-06-10 14:08 | disposition home or self-care (01) | LOC: ANHAUDIO 14:08 | PROVIDERS: PCP Family Medicine; Visit Provider Nurse Practitioner Family | DX: Z01.10 Encounter for examination of ears and hearing without abnormal findings (principal); H91.90 Unspecified hearing loss, unspecified ear | CPT/HCPCS: 99199 ==

== ENCOUNTER 2022-10-20 20:36 | Observation (INO) | payer MEDICARE, SELFPAY ==
--- NOTE | ~2022-10-20 | XR_ITS ---
Portable chest x-ray Comparison: 06/04/2022 Clinical History: Chest pain Findings: Lungs are clear, without focal consolidation or pleural effusion. Cardiomediastinal silho uette is stable. Bones and soft tissues are unremarkable. Impression: Clear lungs. Reviewed, dictated and finalized at [facility]. ASE SPECIALIST Impression: Clear lungs.
--- NOTE | ~2022-10-20 | CT_ITS ---
EXAMINATION: CT abdomen pelvis wo con DATE: 10/21/2022 00:53 INDICATION: Low abdominal pain. Nausea, vomiting, and diarrhea. TECHNIQUE: Computed tomography (CT) of the abdomen and pelvis was performed without intravenous contr ast. Automated exposure control and iterative reconstruction technique were employed. The dose-length product was 1144.38 mGy-cm. COMPARISON: CT abdomen and pelvis 06/04/2022 FINDINGS: The visualized portions of the lung bases demonstrate mosaic attenuation, likely small airw ays disease. No pleural effusion. The heart size is normal. There are coronary artery calcifications. No pericardial effusion. The liver and spleen are normal. There are changes of cholecystectomy. The pancreas, adrenal glands, and right kidney are normal. There is cortical thinning of the kidneys. The re are 7 mm and 3 mm stones in left kidney. There is a 6 mm stone in left renal pelvis. No hydronephr osis. There is gas in the left renal pelvis and calyces. There is gas in the bladder lumen. There is diverticulosis of the colon without evidence of diverticulitis. There are no dilated loops of bowel. The appendix is not visualized. A peritoneal dialysis catheter is noted. There are no pathologically enlarged lymph nodes. There is no free intraperitoneal fluid. Vascular calcifications are noted. Ther e is mild thoracolumbar spondylosis. IMPRESSION: 1. Nonobstructing left kidney stones. 2. Gas in the bladder lumen and left-sided renal collecting system, likely secondary to recent instru mentation. Reviewed, dictated and finalized at location [facility]. CTOR OF ANALYTICS IMPRESSION: 1. Nonobstructing left kidney stones. 2. Gas in the bladder lumen and left-sided renal collecting system, likely seco ndary to recent instrumentation.
[2022-10-20 20:40] VITALS: BP 130/87; PULSE 119; RESP 12; TEMP 36.4; O2SAT 96
[2022-10-20 20:59] LABS: Basophils Absolute Auto 0.1 K/mm3 (0.0-0.1); Basophils Percent Auto 0.9 % (0.2-1.2); Eosinophils Absolute Auto 0.1 K/mm3 (0-0.3); Eosinophils Percent Auto 0.7 % (0-4.4); Hematocrit 48.1 % (37.0-47.0); Hemoglobin 16.3 g/dL (12.0-15.0); Immature Granulocyte Absolute 0.08 K/mm3 (0.00-0.031); Immature Granulocyte Percent A 0.6 % (0-0.5); Lymphocytes Absolute Auto 3.05 K/mm3 (0.9-3.2); Lymphocytes Percent Auto 23.8 % (18.3-44.2); Mean Corpuscular HGB Conc 33.9 g/dl (32-36); Mean Corpuscular Hemoglobin 30.6 pg (26-34); Mean Corpuscular Volume 90.4 fl (80-100); Mean Platelet Volume 9.6 fl (7.4-10.4); Monocytes Absolute Auto 0.7 K/mm3 (0.1-0.6); Monocytes Percent Auto 5.5 % (2.6-8.5); Neutrophils Absolute Auto 8.8 K/mm3 (1.3-6.7); Neutrophils Percent Auto 68.5 % (45.5-73.1); Platelet Count Result 316 k/mm3 (150-375); Red Blood Count 5.32 M/mm3 (4.2-5.4); White Blood Count 12.8 K/mm3 (4.5-10.0)
[2022-10-20 21:10] LABS: Alanine Aminotransferase 21 U/L (6-35); Albumin Level 4.3 g/dL (3.5-5.1); Alkaline Phosphatase 87 U/L (38-126); Anion Gap 17 mmol/L (8-16); Aspartate Amino Transferase 31 U/L (14-36); Bilirubin,Total 0.7 mg/dL (0.2-1.3); Blood Urea Nitrogen 49 mg/dL (7-17); Calcium 9.6 mg/dL (8.4-10.2); Carbon Dioxide 20 mmol/L (22-30); Chloride 97 mmol/L (98-107); Estimated CRCL calculation 6 ml/min; Estimated Glomerular Filt Rate 4; Glucose 194 mg/dL (65-110); Lipase 62 U/L (23-300); Potassium 3.5 mmol/L (3.4-5.0); Sodium 134 mmol/L (137-145)
[2022-10-20 22:28] VITALS: BP 162/111; PULSE 112; RESP 16; O2SAT 97
--- NOTE | 2022-10-20 23:14 | ED.ABDPAIN ---
HPI - Abdominal Pain General Chief Complaint: Abdominal Pain <PADDY Trujillo Last Filed: 10/21/22 03:57> Stated Complaint: n/v x3 days <PADDY Trujillo Last Filed: 10/21/22 03:57> Time Seen by Provider: 10/20/22 22:49 <PADDY Trujillo Last Filed: 10/21/22 03:57> Source: patient <PADDY Trujillo Last Filed: 10/21/22 03:57> Mode of arrival: ambulatory <PADDY Trujillo Last Filed: 10/21/22 03:57> Limitations: no limitations <PADDY Trujillo Last Filed: 10/21/22 03:57> History of Present Illness HPI narrative: Patient is a 67-year-old female who presents the ED with report of abdominal pain. Patient reports having lower abdominal pain for the past 3 days. She also reports having nausea and vomiting intermittently. She has been unable to keep down any pain medicine and has not taken anything today. Patient has a history of ESRD on peritoneal dialysis, which she performs nightly, typically from 10pm-6am. She sees Dr. Christopher, Nephrology w/ [facility] and last saw him last week. She does still make urine. Denies dysuria or hematuria. Denies fever, chest pain, difficulty breathing, rectal bleeding, change in her chronic diarrhea. <PDADY Trujillo Last Filed: 10/21/22 03:57> Related Data Home Medications: Home Medications Medication Instructions Recorded Confirmed insulin lispro 100 unit/mL See Rx Instructions subcut TID 06/19/21 06/11/22 subcutaneous pen furosemide 80 mg tablet 80 mg PO BID 02/03/22 06/11/22 Medical Cannabis See Rx Instructions .Route .COMPLEX 06/04/22 06/11/22 acetaminophen 500 mg capsule 500 mg PO Q6H PRN Pain, Mild 06/04/22 06/11/22 amlodipine 10 mg tablet 5 mg PO DAILY 06/04/22 06/11/22 polyethylene glycol 3350 17 17 g PO DAILY 06/04/22 06/11/22 gram/dose oral powder senna-docusate sodium tablet See Rx Instructions .Route .COMPLEX 06/04/22 06/11/22 <Kimberly Alcantar PA-C - Last Filed: 10/21/22 03:57> Allergies/Adverse Reactions: Allergies Allergy/AdvReac Type Severity Reaction Status Date / Time No Known Allergies Allergy Verified 10/20/22 22:30 <Kimberly Alcantar PA-C - Last Filed: 10/21/22 03:57> Review of Systems Review of Systems: CONSTITUTIONAL: Denies fever, chills, or sweats. ENT: Denies rhinorrhea, congestion, sore throat. CARDIOVASCULAR: Denies chest pain. RESPIRATORY: Denies cough or dyspnea. GASTROINTESTINAL: Reports lower ABD pain, N/V, chronic diarrhea. Denies constipation, rectal bleeding. GENITOURINARY: Denies dysuria or hematuria. <Kimberly Alcantar PA-C - Last Filed: 10/21/22 03:57> All systems reviewed & are unremarkable except as noted in HPI and below <Kimberly Alcantar PA-C - Last Filed: 10/21/22 03:57> [facility] Past Medical History Medical History: Medical History Abdominal hernia Anxiety disorder, unspecified Ataxia Body mass index (BMI) of 40.1 to 44.9 in adult Cervical radiculopathy Chronic right-sided low back pain with right-sided sciatica ESRD (end stage renal disease) on dialysis Essential (primary) hypertension Lumbosacral spondylosis with radiculopathy Mixed hyperlipidemia Morbid (severe) obesity due to excess calories Nephrolithiasis PAD (peripheral artery disease) Type 2 diabetes mellitus with hyperglycemia <Kimberly Alcantar PA-C - Last Filed: 10/21/22 03:57> Surgical History Surgical History: Surgical History History of angioplasty of vein right leg History of appendectomy History of section, classical History of fusion of cervical spine History of partial hysterectomy History of tonsillectomy Hx of cholecystectomy <Kimberly Alcantar PA-C - Last Filed: 10/21/22 03:57> Family History Family History: Family History (Reviewed 06/11/22 @ 10:
[2022-10-20 23:52] LABS: Add Urine Microscopic? YES; Appearance Urine Clear (Clear); Bilirubin Urine 1+ (Negative); Blood Urine 2+ (Negative); Color Urine Yellow (Yellow); Glucose Urine UA Negative (Negative); Ketones Urine Trace mg/dL (Negative); Leukocyte Esterase Ur 1+ LEU/UL (Negative); Nitrate Urine Negative (Negative); Protein Urine 3+ mg/dL (Negative); Specific Grav Ur 1.025 (1.001-1.035); Urobilinogen Urine 0.2 mg/dL (<2.0); pH Urine 5.5 (5.0-9.0)
[2022-10-20 23:59] LABS: Mucus Urine Rare /lpf; Squamous Epithelial Cell Urine Moderate /hpf (Few); WBC Urine >75 /hpf
[2022-10-21] VITALS (23 sets, daily range): BP systolic 106–162; BP diastolic 76–106; PULSE 79–115; RESP 12–22; TEMP 36.1–36.8; O2SAT 93–100; BMI 38.2
--- NOTE | 2022-10-21 | ECG_ITS ---
Measurements Intervals [place] Rate: 95 P: 39 NE: 162 QRS: -44 QRSD: 86 T: 85 QT: 364 QTc: 459 Interpretive Statements SINUS RHYTHM INFERIOR MYOCARDIAL INFARCTION , PROBABLY OLD [40+ ms Q WAVE AND/OR ST/T ABNORMALITY IN II/aVF] COMPARED TO ECG 06/04/2022 10:16:11 NO SIGNIFICANT CHANGES Electronically Signed On 10-21-2022 15:31:22 LICENSED EMBALMER by Ana M Dominguez M.D.
[2022-10-21] MEDS: MORPHINE SULFATE (*CRX) 4 MG/ML INJ IV PUSH ×4 (00:33→13:59)
[2022-10-21] MEDS: ONDANSETRON INJ 4 MG/2 ML VIAL IV PUSH ×4 (00:33→13:59)
[2022-10-21] MEDS: SODIUM CHLORIDE 0.9% IV 500 ML 999 ML IV CONT (00:33)
[2022-10-21] MEDS: SODIUM CHLORIDE 0.9% IV 1,000 ML 999 ML IV CONT (02:26)
[2022-10-21] MEDS: PANTOPRAZOLE SODIUM IV 40 MG VIAL IV PUSH ×2 (02:26→20:13)
[2022-10-21 02:36] LABS: Beta-Hydroxybutyrate/Acetoacetate 0.38 mmol/L (0.02-0.27)
[2022-10-21 03:05] LABS: Glucose Point of Care 174 mg/dl (65-105)
[2022-10-21 03:25] LABS: Lactic Acid Reflex 2.3 mmol/L (0.7-2.0)
--- NOTE | 2022-10-21 04:08 | PC.NURSE ---
Patient mad at staff at this time and yelling at us, you all do not know what your doing. You will not stick me anymore you are all doing terrible care making me stay in this room and making me wait for results of my test to come back This RN informed her it takes a while to get results back on the tests and we have no rooms upstairs. We got this patient a pillow and several blankets. Patient sitting up in bed at this time,
[2022-10-21 05:02] LABS: Influenza A QL RT-PCR Negative (Negative); Influenza B QL RT-PCR Negative (Negative); SARS-CoV-2 RNA PCR Negative
--- NOTE | 2022-10-21 06:06 | PC.NURSE ---
This RN talked to the hospitalist and told her that the patient is refusing all blood draw at this time. This RN also let her know the patient is in pain and is having N/V. Patient stated the medications last time did not work.
[2022-10-21 06:13] LABS: Reflex Lactic Acid Yes or No Add Lactic
[2022-10-21] MEDS: TRIMETHOBENZAMIDE HCL 200 MG/2 ML VIAL IM (06:28)
[2022-10-21] MEDS: KETOROLAC 30 MG/ML VIAL (*BKC) IV PUSH (06:29)
--- NOTE | 2022-10-21 08:19 | PM.CNNEP ---
Assessment and Plan Assessment and plan (1) ESRD on peritoneal dialysis: Code(s): N18.6 - End stage renal disease; Z99.2 - Dependence on renal dialysis Status: Acute Assessment and Plan: the patient has end-stage renal disease. This is most likely due to hypertension and diabetes. She also probably has vascular disease. She has been on dialysis for about 3 years. Her doctor is Dr. Christopher at [place]. Dialysis has gone pretty well. Apparently she has not had any peritonitis. her dialysis goes pretty well at home. He is not aware of any problems before 3 days ago. (2) Abdominal pain: Code(s): R10.9 - Unspecified abdominal pain Status: Acute Assessment and Plan: The patient has significant abdominal discomfort. Also has nausea and vomiting and diarrhea. I would suspect that this is peritonitis. She says the fluid is not completely clear which means is cloudy. Unfortunately she already got antibiotics last night. Will get a culture of the PD fluid as well as a cell count. She also has a poorly healed exit site. I can see some fatty tissue but not pus. She does have some red drainage on her bandage which the patient says her changes every other day or so. her tunnel is not tender. Will add vancomycin as patient is having the 1st episode of peritonitis in usually this is g positive. Other causes of belly pain could be occurring as well such as colitis, appendicitis, colon issues, etc. Will see what the CT scan shows. (3) UTI (urinary tract infection): Qualifiers: Hematuria presence: with hematuria Urinary tract infection type: acute cystitis Qualified Code(s): N30.01 - Acute cystitis with hematuria Code(s): N39.0 - Urinary tract infection, site not specified Status: Acute Assessment and Plan: The patient has pyuria. She has a urine culture pending. She is on antibiotics (4) Hypertension associated with type 2 diabetes mellitus: Code(s): E11.59 - Type 2 diabetes mellitus with other circulatory complications; I15.2 - Hypertension secondary to endocrine disorders Status: Acute Assessment and Plan: the patient has high blood pressure. Currently the systolic is running in the 160s. This could be partly due to her pain and distress. (5) Mixed diabetic hyperlipidemia associated with type 2 diabetes mellitus: Code(s): E11.69 - Type 2 diabetes mellitus with other specified complication; E78.2 - Mixed hyperlipidemia Status: Acute Assessment and Plan: Hospitalist to manage this. 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 use Qualified Code(s): E11.65 - Type 2 diabetes mellitus with hyperglycemia; Z79.4 - intermission coordinator (current) use of insulin Code(s): E11.65 - Type 2 diabetes mellitus with hyperglycemia Status: Acute (7) Coronary artery disease: Code(s): I25.10 - Atherosclerotic heart disease of [place] coronary artery without angina pectoris Status: Acute History of Present Illness Reason for Consult Consult date: 10/21/22 Chief Complaint Chief complaint: UTI,emphysematous pyelitis,ESRD on peritonela dial History of Present Illness Narrative: Arlen is an unfortunate 67-year-old lady who has multiple medical problems including end-stage renal disease on peritoneal dialysis for the last 3 years, hypertension, diabetes, peripheral arterial disease, kidney stones, hyperlipidemia, chronic low back pain and sciatica, apical radiculopathy, high body mass index, a type C a, anxiety, abdominal hernia. The patient says she was well until about 3 days ago when she started having belly pain. It was diffuse pain. She also had nausea and vomiting. She has had liquid stools as well. She thinks her fluid is a little cloudy but she is unsure she said it was not really cloudy but it was not
--- NOTE | 2022-10-21 08:30 | PM.IMHP ---
H&P: HPI History of Present Illness Date/Time: 10/21/22 12:50 Chief Complaint: Abdominal pain Narrative: patient is 67-year-old female with a past medical history of hypertension, end-stage renal disease, CAD who presented the ED with complaints of abdominal pain accompanied with nausea vomiting for the last 3 days. Patient stated that her stomach hurts real bad it is more of the middle to the lower. She also stated that she is having numbness tingling in her legs that is worse than normal. She currently rates her pain an 8/10. She described her pain as walking on a bed of nails. She also stated that she was having some chest pain accompanied with some lightheadedness and dizziness. Patient is also stated that she has been having some bad headaches that is in the back of her head and also her forehead. She denies any sweats or fevers however she did say that she has been having some chills. She has been compliant with her dialysis stating that she has ox herself about 10:00 p.m. every night. Her appetite has been lagging and she is stating that everything small cell hour to her. She also stated that her mobility has been compromised and she has been walking with others to get around. She stated that as she gets up she gets very dizzy and lightheaded as well and she loses her balance. She feels pretty weak. She did state that she was having some chest pain and was concerned about her EKG in and fact asked me to look at it. She also stated that she has been having some burning with urination. She called her primary care provider and they gave her what looks to be Augmentin and which she stated that she finished that course and the burning came back. She also stated that her urine has not changed however it does appear to be darker at this time. Blood pressure and heart rate early slightly elevated and patient stated that is nothing new for her. recheck her blood pressure and I was 106/73. she was currently complaining of nausea and stated that she had a couple ice chips and vomited. She also claims that she does have some gastroparesis and which she takes Reglan p.o. for when she needs it. She denies any shortness of breath, falls, vision changes or hearing changes. The site of her dialysis catheter looked stable with no redness or swelling. at 1615 Was called to the room for reassessment. Patient was still having lots of nausea vomiting and did not have any relief from the Reglan. Daughter was also present and stated that the patient has been having a lot more problems with walking. She also stated that the patient has been having some uncontrolled tremors which she stated is usually from uncontrolled pain. Converted some of her medications to IV medications. Was considering GI however it could be that she has peritonitis due to the fact that she has a peritoneal dialysis patient. She seems pretty stable EKG is stable. Patient is being admitted to the hospitalist service as an observation at this time Review of Systems Review of Systems: All systems reviewed & are unremarkable except as noted in HPI and below PMFSH Past Medical History Medical History Abdominal hernia Abdominal pain Anxiety disorder, unspecified Ataxia Body mass index (BMI) of 40.1 to 44.9 in adult Cervical radiculopathy Chronic right-sided low back pain with right-sided sciatica Coronary artery disease ESRD (end stage renal disease) on dialysis Essential (primary) hypertension Lumbosacral spondylosis with radiculopathy Mixed hyperlipidemia Morbid (severe) obesity due to excess calories Nephrolithiasis PAD (peripheral artery disease) Type 2 diabetes mellitus with hyperglycemia Surgical History Surgical History History of angioplasty of vein right leg History of appendectomy History of section, classical History of fusion of cervical s
[2022-10-21] MEDS: METOCLOPRAMIDE HCL INJ 10 MG/2 ML VIAL IV PUSH (09:49)
[2022-10-21] MEDS: SODIUM CHLORIDE 0.9% IV 1,000 ML 75 ML IV CONT (09:50)
[2022-10-21 11:06] LABS: Alanine Aminotransferase 19 U/L (6-35); Albumin Level 4.3 g/dL (3.5-5.1); Alkaline Phosphatase 79 U/L (38-126); Anion Gap 18 mmol/L (8-16); Aspartate Amino Transferase 30 U/L (14-36); Bilirubin,Total 0.6 mg/dL (0.2-1.3); Blood Urea Nitrogen 49 mg/dL (7-17); Carbon Dioxide 16 mmol/L (22-30); Chloride 97 mmol/L (98-107); Estimated CRCL calculation 6 ml/min; Estimated Glomerular Filt Rate 4; Glucose 213 mg/dL (65-110); Potassium 3.9 mmol/L (3.4-5.0); Sodium 131 mmol/L (137-145)
[2022-10-21 11:13] LABS: Basophils Absolute Auto 0.1 K/mm3 (0.0-0.1); Basophils Percent Auto 0.8 % (0.2-1.2); Eosinophils Percent Auto 0.1 % (0-4.4); Hematocrit 50.2 % (37.0-47.0); Hemoglobin 16.2 g/dL (12.0-15.0); Immature Granulocyte Absolute 0.08 K/mm3 (0.00-0.031); Immature Granulocyte Percent A 0.6 % (0-0.5); Lymphocytes Absolute Auto 2.04 K/mm3 (0.9-3.2); Lymphocytes Percent Auto 15.8 % (18.3-44.2); Mean Corpuscular HGB Conc 32.3 g/dl (32-36); Mean Corpuscular Hemoglobin 30.1 pg (26-34); Mean Corpuscular Volume 93.1 fl (80-100); Mean Platelet Volume 9.7 fl (7.4-10.4); Monocytes Absolute Auto 0.8 K/mm3 (0.1-0.6); Neutrophils Absolute Auto 9.9 K/mm3 (1.3-6.7); Neutrophils Percent Auto 76.7 % (45.5-73.1); Platelet Count Result 310 k/mm3 (150-375); Red Blood Count 5.39 M/mm3 (4.2-5.4)
[2022-10-21 11:21] LABS: Troponin I 0.119 ng/mL (0.000-0.034)
--- NOTE | 2022-10-21 12:12 | ECG_ITS ---
Measurements Intervals [place] Rate: 103 P: 16 NV: 159 QRS: -33 QRSD: 81 T: 113 QT: 347 QTc: 456 Interpretive Statements SINUS TACHYCARDIA MARKED LEFT AXIS DEVIATION [QRS AXIS < -30] PATTERN CONSISTENT WITH PULMONARY DISEASE NONSPECIFIC ST AND T-WAVE ABNORMALITY ANTEROSEPTAL MYOCARDIAL INFARCTION, AGE UNDETERMINED INFERIOR MYOCARDIAL INFARCTION, AGE UNDETERMINED ABNORMAL ECG Electronically Signed On 10-21-2022 15:37:23 NEEDLE GRINDER by Bong Downing M.D.
--- NOTE | 2022-10-21 15:28 | PC.NURSE ---
lEFT MESSAGE FOR MD THAT PT IS UNABLE TO TOLERATE ORAL MEDICATION WITHOUT BECOMINGILL.
--- NOTE | 2022-10-21 16:11 | ECG_ITS ---
Measurements Intervals [place] Rate: 98 P: 31 WV: 178 QRS: -42 QRSD: 65 T: 54 QT: 341 QTc: 435 Interpretive Statements SINUS RHYTHM PROBABLY OLD INFERIOR MYOCARDIAL INFARCTION [40+ ms Q WAVE AND/OR ST/T ABNORMALITY IN II/aVF], OF INDETERMINATE AGE COMPARED TO ECG 10/21/2022 14:37:31 SINUS RHYTHM NOW PRESENT Electronically Signed On 10-22-2022 17:47:12 FRINGE WEAVER by Ana M Dominguez M.D.
[2022-10-21] MEDS: PROCHLORPERAZINE EDISYLATE 10 MG/2 ML VIAL IV PUSH (16:53)
[2022-10-21 17:15] LABS: Glucose Point of Care 181 mg/dl (65-105)
[2022-10-21] MEDS: HYDROmorphone HCL INJ (*CRX) 1 MG/ML SYR 0.5 MG IV PUSH (18:23)
[2022-10-21 19:24] LABS: Troponin I 0.106 ng/mL (0.000-0.034)
[2022-10-21] MEDS: METOPROLOL TARTRATE INJ 5 MG/5 ML VIAL IV PUSH (23:26)
[2022-10-22] VITALS (16 sets, daily range): BP systolic 90–120; BP diastolic 52–70; PULSE 81–115; RESP 16–20; TEMP 36–36.6; O2SAT 91–96
--- NOTE | 2022-10-22 | ECHO_ITS ---
Patient Info Name: Arlen Lomeli Age: 67 years : 1955 Gender: Female Ht: 60 in Wt: 195 lbs BSA: 1.98 m2 HR: 93 bpm BP: 162 / 101 mmHg Heart Rhythm: Sinus Rhythm Technical Quality: Fair Exam Date: 10/22/2022 2:05 PM Exam Location: [facility] Pulmonary Exam Room: 203 Patient Status: Outpatient Admit Date: 10/21/2022 Staff Ordering Physician: Edouard Freeman Phonograph Needle Tip Maker: Niyah Aguilar RCS Attending Provider: Kiara Nevarez MD Referring Physician: Pete HIDALGO; Exam Type: CA echo doppler color flow Study Info Indications - new on set chest pain Complete two-dimensional, color flow and Doppler transthoracic echocardiogram is performed. Summary 1. Complete two-dimensional, color flow and Doppler transthoracic echocardiogram is performed. 2. Left ventricular systolic function is normal, estimated at 60-65%. 3. There is mildly increased left ventricular wall thickness. 4. The left ventricular diastolic function is grade I diastolic dysfunction. 5. Right ventricular systolic function is normal. 6. There is moderate aortic valve calcification. 7. The mitral valve has thickened leaflets and calcified leaflets. 8. The mitral valve annulus is moderately calcified. 9. There is a small-moderate anterior pericardial effusion with fibrinous material within the pericardial space. This was seen on prior study. Left Ventricle Left ventricular chamber dimension is normal. Left ventricular systolic function is normal, estimated at 60-65%. There is mildly increased left ventricular wall thickness. The left ventricular diastolic function is grade I diastolic dysfunction. Right Ventricle Right ventricular chamber dimension is normal. Right ventricular systolic function is normal. Left Atria Left atrial chamber dimension is normal. Right Atria Right atrial chamber dimension is normal. Atrial Septum Intact interatrial septum visualized by color flow imaging. Aortic Valve The aortic valve is not well visualized. There is no aortic valve stenosis. There is no aortic valve regurgitation. There is moderate aortic valve calcification. Pulmonic Valve The pulmonic valve is not well visualized. Mitral Valve The mitral valve has thickened leaflets and calcified leaflets. There is no mitral valve stenosis. There is trace mitral valve regurgitation. The mitral valve annulus is moderately calcified. Tricuspid Valve There is trace tricuspid valve regurgitation. Pericardium/Pleural There is a small-moderate anterior pericardial effusion with fibrinous material within the pericardial space. This was seen on prior study. Aorta The aortic root size at the sinus of Valsalva is normal. Left Ventricular Outflow Tract Name Value Normal LVOT 2D LVOT Diameter 2.0 cm LVOT Doppler LVOT Peak Gradient 4 mmHg LVOT Mean Gradient 2 mmHg LVOT VTI 18 cm LVOT VTI/AV VTI Ratio 0.8 LVOT Stroke Volume 54 ml LVOT CO 13.6
[2022-10-22 04:27] LABS: Basophils Absolute Auto 0.1 K/mm3 (0.0-0.1); Basophils Percent Auto 0.5 % (0.2-1.2); Eosinophils Absolute Auto 0.1 K/mm3 (0-0.3); Eosinophils Percent Auto 0.4 % (0-4.4); Hematocrit 48.8 % (37.0-47.0); Hemoglobin 16.1 g/dL (12.0-15.0); Immature Granulocyte Percent A 0.5 % (0-0.5); Lymphocytes Absolute Auto 3.55 K/mm3 (0.9-3.2); Lymphocytes Percent Auto 18.6 % (18.3-44.2); Mean Corpuscular Hemoglobin 30.7 pg (26-34); Mean Platelet Volume 9.8 fl (7.4-10.4); Monocytes Absolute Auto 1.3 K/mm3 (0.1-0.6); Monocytes Percent Auto 6.7 % (2.6-8.5); Neutrophils Percent Auto 73.3 % (45.5-73.1); Platelet Count Result 312 k/mm3 (150-375); Red Blood Count 5.25 M/mm3 (4.2-5.4); Red Cell Distribution Width 15.9 % (11.5-14.5); White Blood Count 19.1 K/mm3 (4.5-10.0)
[2022-10-22 04:43] LABS: Alanine Aminotransferase 22 U/L (6-35); Albumin Level 4.5 g/dL (3.5-5.1); Alkaline Phosphatase 74 U/L (38-126); Anion Gap 19 mmol/L (8-16); Aspartate Amino Transferase 29 U/L (14-36); Bilirubin,Total 0.7 mg/dL (0.2-1.3); Blood Urea Nitrogen 45 mg/dL (7-17); Calcium 8.9 mg/dL (8.4-10.2); Carbon Dioxide 18 mmol/L (22-30); Chloride 101 mmol/L (98-107); Estimated CRCL calculation 6 ml/min; Estimated Glomerular Filt Rate 4; Glucose 158 mg/dL (65-110); Phosphorus 8.5 mg/dL (2.5-4.5); Potassium 3.2 mmol/L (3.4-5.0); Sodium 138 mmol/L (137-145)
[2022-10-22] MEDS: METOPROLOL TARTRATE INJ 5 MG/5 ML VIAL IV PUSH ×3 (05:31→18:37)
[2022-10-22] MEDS: ALPRAZolam (*CRX) 0.5 MG TABLET 1 MG PO (09:59)
[2022-10-22] MEDS: MAGNESIUM OXIDE 400 MG TABLET PO (10:00)
[2022-10-22] MEDS: ROSUVASTATIN 10 MG TABLET PO (10:00)
[2022-10-22] MEDS: ONDANSETRON INJ 4 MG/2 ML VIAL IV PUSH (10:00)
[2022-10-22] MEDS: FUROSEMIDE 80 MG TABLET PO (10:00)
[2022-10-22] MEDS: PANTOPRAZOLE SODIUM IV 40 MG VIAL IV PUSH (10:00)
[2022-10-22] MEDS: amLODIPine BESYLATE 5 MG TABLET PO (10:01)
[2022-10-22] MEDS: GABAPENTIN 300 MG CAPSULE PO ×3 (10:01→17:07)
[2022-10-22] MEDS: CLOPIDOGREL BISULFATE 75 MG TABLET PO (10:01)
[2022-10-22] MEDS: CALCIUM ACETATE 667 MG TABLET 1334 MG PO ×3 (10:01→17:07)
[2022-10-22] MEDS: TOLNAFTATE 1% POWDER 45 GM BTL 1 APPLIC TOPICAL ×3 (10:10→17:08)
[2022-10-22] MEDS: SODIUM CHLORIDE 0.9% IV 1,000 ML 50 ML IV CONT (10:18)
[2022-10-22] MEDS: cefTRIAXone 2 GM in SODIUM CHLORIDE 0.9% IV 100 ML 200 ML IVPB (14:35)
--- NOTE | 2022-10-22 16:24 | PM.IMPN ---
Progress Note: A&P Assessment and Plan (1) Emphysematous pyelonephritis of left kidney: Code(s): N12 - Tubulo-interstitial nephritis, not specified as acute or chronic Status: Acute Assessment and Plan: Brianna reports abdominal pain accompanied with nausea vomiting for last [address] of the abdomen and pelvis shows emphysema in renal collecting duct related to Pyelonephritis/UTI. Zofran available for nausea. Blood cultures are no growth to date. urine culture growing E coli that is pansensitive. Continue Rocephin but will increase to 2 g daily. White count higher today. Continue to follow. Consider abscess formation if white count does not trend as expected. Advance diet as tolerated. (2) Elevated troponin: Code(s): R77.8 - Other specified abnormalities of plasma proteins Status: Acute Assessment and Plan: Troponin 0.119 and flat. EKG shows no significant change and is in sinus rhythm. Elevated troponin could be related to end-stage renal disease. Echo is pending. Continue Plavix, Crestor and Toprol. (3) Coronary artery disease: Code(s): I25.10 - Atherosclerotic heart disease of [place] coronary artery without angina pectoris Status: Acute Assessment and Plan: Had a heart catheterization in June of 2022, with no intervention. CXXR clear. Chest pain felt to be non cardiac. Follow-up on echocardiogram results. (4) ESRD on peritoneal dialysis: Code(s): N18.6 - End stage renal disease; Z99.2 - Dependence on renal dialysis Status: Acute Assessment and Plan: Patient has end-stage lung disease on peritoneal dialysis. Nephrology has been consulted. Given her abdominal pain, peritoneal fluid was cultured. Gram stain reveals no organisms or white blood cells. Peritoneal culture pending. Potassium 3.2. She has anion gap metabolic acidosis probably related to her renal failure. (5) Essential (primary) hypertension: Code(s): I10 - Essential (primary) hypertension Status: Chronic Assessment and Plan: Blood pressure soft at times. Probably related to her ongoing infection. Will hold her Norvasc. Will stop the IV metoprolol and switch back to her oral metoprolol. We will start her oral metoprolol at a lower dose and advance as tolerated. Will stop the IV fluids and monitor blood pressure closely. She is also on Lasix which will hold as well. (6) Diabetes 1.5, managed as type 2: Code(s): E13.9 - Other specified diabetes mellitus without complications Status: Acute Assessment and Plan: A1c 11.4 in June. The patient's blood glucose was reviewed on 10/22 Glucose remains well controlled. Continue AccuCheks covering with sliding scale. Hypoglycemia protocol available as needed. Continue to follow (7) Abdominal pain: Code(s): R10.9 - Unspecified abdominal pain Status: Acute Assessment and Plan: related to pyelonephritis. As above (8) Abnormal urinalysis: Code(s): R82.90 - Unspecified abnormal findings in urine Status: Acute Assessment and Plan: related to UTI and pyelonephritis. Subjective Date/time seen: 10/22/22 16:24 Interval history: 67yo female with ESRD here for abdominal pain and found to have left pyelonephritis. Assuming care. Chart reviewed. Abdominal pain is improved. She denies any nausea or vomiting. She feels hungry is requesting a diet to be advanced. She actually is requesting for discharge as well. Exam Narrative: AF 97.6 95/68 89 20 93% ra Gen - NARD Chest - CTA bilaterally, nml RR CV - RRR S1/S2 Abd - Soft, ND, mild suprapubic pain. PD cath dressing site is clean, dry intact back - left CVA tenderness Ext - No pedal edema Psych - Nml mood and affect Skin - Warm and dry Objective Data Vital Signs Vital Signs: Vital Signs - 24 hr 10/21/22 16:25 10/21/22 16:52 10/21/22 16:40 Temperature
[2022-10-22 16:51] LABS: Glucose Point of Care 155 mg/dl (65-105)
--- NOTE | 2022-10-22 17:52 | PM.PNNEP ---
Progress Note: A&P Assessment and Plan (1) ESRD on peritoneal dialysis: Code(s): N18.6 - End stage renal disease; Z99.2 - Dependence on renal dialysis Status: Acute Assessment and Plan: the patient has end-stage renal disease. This is most likely due to hypertension and diabetes. She also probably has vascular disease. She has been on dialysis for about 3 years. Her doctor is Dr. Christopher at [place]. no alarms last night during her PD. Fluid is not extremely cloudy. Cell count is fairly low. I do not think this is dialysis related peritoneitis (2) Abdominal pain: Code(s): R10.9 - Unspecified abdominal pain Status: Acute Assessment and Plan: The patient has significant abdominal discomfort. Also has nausea and vomiting and diarrhea. She has very few white cells in her PD fluid. This makes peritonitis much less likely. CT was negative. Perhaps a viral gastroenteritis? Ischemic colon could do this as well. She does smoke and she has coronary disease so vascular disease in the arterial supply to the colon is possible. UTI could do this as well. (3) UTI (urinary tract infection): Qualifiers: Hematuria presence: with hematuria Urinary tract infection type: acute cystitis Qualified Code(s): N30.01 - Acute cystitis with hematuria Code(s): N39.0 - Urinary tract infection, site not specified Status: Acute Assessment and Plan: The patient has pyuria. She has a urine culture pending. Urine culture shows E coli which is steve sensitive. She is on ceftriaxone. No need for vancomycin now. (4) Hypertension associated with type 2 diabetes mellitus: Code(s): E11.59 - Type 2 diabetes mellitus with other circulatory complications; I15.2 - Hypertension secondary to endocrine disorders Status: Acute Assessment and Plan: Blood pressure is much better. Probably since she is in less pain (5) Mixed diabetic hyperlipidemia associated with type 2 diabetes mellitus: Code(s): E11.69 - Type 2 diabetes mellitus with other specified complication; E78.2 - Mixed hyperlipidemia Status: Acute Assessment and Plan: Hospitalist to manage this. (6) Type 2 diabetes mellitus with hyperglycemia: Qualifiers: Diabetes mellitus care home insulin use: with java j2ee software engineer use Qualified Code(s): E11.65 - Type 2 diabetes mellitus with hyperglycemia; Z79.4 - group home (current) use of insulin Code(s): E11.65 - Type 2 diabetes mellitus with hyperglycemia Status: Acute Assessment and Plan: hospitalist to manage this. (7) Coronary artery disease: Code(s): I25.10 - Atherosclerotic heart disease of [place] coronary artery without angina pectoris Status: Acute Assessment and Plan: No chest pain Subjective Date/time seen: 10/22/22 08:00 Interval history: the patient feels better today. He did have some nausea overnight but not nearly as much. Her belly pain is much less intense today. Review of Systems Cardiovascular: Cardiovascular: Reports no additional cardiovascular complaints Respiratory: Respiratory: Reports no additional respiratory complaints Gastrointestinal: Gastrointestinal: Reports no additional gastrointestinal complaints Genitourinary: Genitourinary: Reports no additional female genitourinary complaints Exam Narrative: WDWN in NAD skin no rash head ncat lungs clear cor reg no rub abd BS+ Only mildly and diffusely tender and soft ext no edema. Objective Data Vital Signs Vital Signs: Vital Signs - 24 hr 10/21/22 18:16 10/21/22 20:00 10/21/22 20:45 Temperature 97.9 F Pulse Rate 86 92 79 Respiratory Rate 18 Blood Pressure 130/82 Pulse Oximetry 93 Oxygen Delivery 10/21/22 22:00 10/21/22 23:26 10/21/22 23:32 Temperature 97 F L Pulse Rate 84 99 99 Respiratory Rate 16 Blood Pressure 110/76 Pulse Ox
[2022-10-22 20:32] LABS: Glucose Point of Care 165 mg/dl (65-105)
[2022-10-22] MEDS: PANTOPRAZOLE 40 MG TABLET PO (21:56)
[2022-10-23] VITALS (14 sets, daily range): BP systolic 101–134; BP diastolic 56–82; PULSE 60–118; RESP 16–18; TEMP 36.3–36.6; O2SAT 98–100
[2022-10-23 04:46] LABS: Basophils Absolute Auto 0.2 K/mm3 (0.0-0.1); Basophils Percent Auto 1.2 % (0.2-1.2); Eosinophils Absolute Auto 0.3 K/mm3 (0-0.3); Eosinophils Percent Auto 2.7 % (0-4.4); Hematocrit 44.8 % (37.0-47.0); Hemoglobin 14.6 g/dL (12.0-15.0); Immature Granulocyte Absolute 0.06 K/mm3 (0.00-0.031); Immature Granulocyte Percent A 0.5 % (0-0.5); Lymphocytes Absolute Auto 3.58 K/mm3 (0.9-3.2); Lymphocytes Percent Auto 29.6 % (18.3-44.2); Mean Corpuscular HGB Conc 32.6 g/dl (32-36); Mean Corpuscular Hemoglobin 30.4 pg (26-34); Mean Corpuscular Volume 93.3 fl (80-100); Mean Platelet Volume 9.7 fl (7.4-10.4); Monocytes Absolute Auto 0.9 K/mm3 (0.1-0.6); Monocytes Percent Auto 7.5 % (2.6-8.5); Neutrophils Absolute Auto 7.1 K/mm3 (1.3-6.7); Neutrophils Percent Auto 58.5 % (45.5-73.1); Platelet Count Result 262 k/mm3 (150-375); White Blood Count 12.1 K/mm3 (4.5-10.0)
[2022-10-23 05:09] LABS: Hemoglobin A1C 8.7 % (<5.7)
[2022-10-23 05:13] LABS: Albumin Level 3.6 g/dL (3.5-5.1); Anion Gap 14 mmol/L (8-16); Blood Urea Nitrogen 41 mg/dL (7-17); Carbon Dioxide 21 mmol/L (22-30); Chloride 97 mmol/L (98-107); Estimated CRCL calculation 6 ml/min; Estimated Glomerular Filt Rate 4; Glucose 158 mg/dL (65-110); Phosphorus 7.6 mg/dL (2.5-4.5); Potassium 2.7 mmol/L (3.4-5.0); Sodium 132 mmol/L (137-145)
[2022-10-23] MEDS: POTASSIUM CHLORIDE 20 MEQ TABLET PO ×2 (06:22→09:24)
--- NOTE | 2022-10-23 08:04 | PM.PNNEP ---
Progress Note: A&P Assessment and Plan (1) ESRD on peritoneal dialysis: Code(s): N18.6 - End stage renal disease; Z99.2 - Dependence on renal dialysis Status: Acute Assessment and Plan: the patient has end-stage renal disease. This is most likely due to hypertension and diabetes. She also probably has vascular disease. She has been on dialysis for about 3 years. Her doctor is Dr. Christopher at [place]. (2) Abdominal pain: Code(s): R10.9 - Unspecified abdominal pain Status: Acute Assessment and Plan: The patient has significant abdominal discomfort. Also has nausea and vomiting and diarrhea. It looks like that her peritoneal fluid did not make it to the lab after all. Will send another sample today. CT was negative. Cultures were done and are negative but she was already on antibiotics as they were given in the ER. She is better with antibiotics. Probably the best thing to do would be to assume that this is peritonitis and treat her for 2 weeks intraperitoneally after discharge. She is currently on Omnicef p.o.. Vancomycin level was 14 today. Will give a dose of vancomycin intraperitoneally today. (3) UTI (urinary tract infection): Qualifiers: Hematuria presence: with hematuria Urinary tract infection type: acute cystitis Qualified Code(s): N30.01 - Acute cystitis with hematuria Code(s): N39.0 - Urinary tract infection, site not specified Status: Acute Assessment and Plan: The patient has pyuria. She has a urine culture pending. Urine culture shows E coli which is steve sensitive. She is on Omnicef (4) Hypertension associated with type 2 diabetes mellitus: Code(s): E11.59 - Type 2 diabetes mellitus with other circulatory complications; I15.2 - Hypertension secondary to endocrine disorders Status: Acute Assessment and Plan: Blood pressure is much better. Probably since she is in less pain (5) Mixed diabetic hyperlipidemia associated with type 2 diabetes mellitus: Code(s): E11.69 - Type 2 diabetes mellitus with other specified complication; E78.2 - Mixed hyperlipidemia Status: Acute Assessment and Plan: Hospitalist to manage this. (6) Type 2 diabetes mellitus with hyperglycemia: Qualifiers: Diabetes mellitus alf insulin use: with termite exterminator helper use Qualified Code(s): E11.65 - Type 2 diabetes mellitus with hyperglycemia; Z79.4 - detention (current) use of insulin Code(s): E11.65 - Type 2 diabetes mellitus with hyperglycemia Status: Acute Assessment and Plan: hospitalist to manage this. (7) Coronary artery disease: Code(s): I25.10 - Atherosclerotic heart disease of [place] coronary artery without angina pectoris Status: Acute Assessment and Plan: No chest pain Subjective Date/time seen: 10/23/22 08:04 Interval history: Patient feels better today. More nausea. Belly pain improved. She is on peritoneal dialysis. Her fluid is now clear. There were no alarms last night she says. She was seen at 7:15 a.m. Exam Narrative: WDWN in NAD skin no rash head ncat lungs clear cor reg no rub or gallop abd BS+ soft. Minimally tender. ext no edema. Objective Data Vital Signs Vital Signs: Vital Signs - 24 hr 10/22/22 12:52 10/22/22 12:00 10/22/22 12:00 Temperature 97.6 F Pulse Rate 88 89 Respiratory Rate 20 Blood Pressure 90/58 L Pulse Oximetry 91 Oxygen Delivery Room Air 10/22/22 16:00 10/22/22 17:20 10/22/22 12:00 Temperature 97.6 F 97.6 F Pulse Rate 89 89 85 Respiratory Rate 20 20 Blood Pressure 95/65 L 95/65 L Pulse Oximetry 93 Oxygen Delivery Room Air 10/22/22 16:00 10/22/22 18:37 10/22/22 16:00 Temperature Pulse Rate 103 H 93 Respiratory Rate Blood Pressure Pulse Oximetry Oxygen Delivery Room Air 10/22/22 18:00 10/22/22 20:00 10/22/22 20:00 Temper
[2022-10-23 08:24] LABS: Glucose Point of Care 167 mg/dl (65-105)
[2022-10-23] MEDS: GABAPENTIN 300 MG CAPSULE PO ×3 (09:16→17:29)
[2022-10-23] MEDS: FLUCONAZOLE 100 MG TABLET PO (09:16)
[2022-10-23] MEDS: CLOPIDOGREL BISULFATE 75 MG TABLET PO (09:16)
[2022-10-23] MEDS: CALCIUM ACETATE 667 MG TABLET 1334 MG PO ×3 (09:16→17:29)
[2022-10-23] MEDS: TOLNAFTATE 1% POWDER 45 GM BTL 1 APPLIC TOPICAL ×3 (09:17→17:29)
[2022-10-23] MEDS: ROSUVASTATIN 10 MG TABLET PO (09:17)
[2022-10-23] MEDS: METOPROLOL SUCCINATE EXT REL 50 MG TABCR PO (09:17)
[2022-10-23] MEDS: PANTOPRAZOLE 40 MG TABLET PO ×2 (09:17→20:10)
[2022-10-23] MEDS: MAGNESIUM OXIDE 400 MG TABLET PO (09:17)
[2022-10-23] MEDS: CEFDINIR 300 MG CAPSULE PO ×2 (09:24→20:10)
[2022-10-23] MEDS: VANCOMYCIN HCL IV CONT (10:00)
[2022-10-23] MEDS: PERITONEAL DIALYSIS IV CONT (10:00)
[2022-10-23 11:23] LABS: Appearance Peritoneal Fluid Clear (Clear); Color Peritoneal Fluid Colorless (Colorless); Lymphocytes Peritoneal Fluid 70 %; Monocytes Peritoneal Fluid 10 %; Nucleated Cells Peritoneal Flu 8 /uL (0-500); RBC Peritoneal Fluid 0 /uL (0-100000); Source Peritoneal Fluid Peritoneal Fluid
[2022-10-23 11:24] LABS: Neutrophils Peritoneal Fluid 20 % (0-25)
[2022-10-23 12:42] LABS: Glucose Point of Care 170 mg/dl (65-105)
--- NOTE | 2022-10-23 14:32 | PM.DS ---
DS: Admitting Diagnosis Discharge Date 10/23/22 Admitting Diagnosis Abdominal pain DS: Discharge Diagnosis Discharge Diagnosis (1) Emphysematous pyelonephritis of left kidney: Code(s): N12 - Tubulo-interstitial nephritis, not specified as acute or chronic Status: Acute (2) Elevated troponin: Code(s): R77.8 - Other specified abnormalities of plasma proteins Status: Acute (3) Coronary artery disease: Code(s): I25.10 - Atherosclerotic heart disease of [place] coronary artery without angina pectoris Status: Acute (4) ESRD on peritoneal dialysis: Code(s): N18.6 - End stage renal disease; Z99.2 - Dependence on renal dialysis Status: Acute (5) Essential (primary) hypertension: Code(s): I10 - Essential (primary) hypertension Status: Chronic (6) Diabetes 1.5, managed as type 2: Code(s): E13.9 - Other specified diabetes mellitus without complications Status: Acute (7) Abdominal pain: Code(s): R10.9 - Unspecified abdominal pain Status: Acute (8) Abnormal urinalysis: Code(s): R82.90 - Unspecified abnormal findings in urine Status: Acute DS: Summary Hospital Course Reason for hospitalization: 67yo female with ESRD here for abdominal pain and found to have left pyelonephritis. Please see H&P for details Hospital Course: Patient reports abdominal pain accompanied with nausea and vomiting for last [address] of the abdomen and pelvis shows emphysema in renal collecting duct related to Pyelonephritis/UTI.? Zofran was available for nausea.? Blood cultures are no growth to date. Urine culture growing E coli that is pansensitive.? Treated with Rocephin at 2 g daily.? White count elevated but trended down.? Troponin 0.119 and flat. EKG shows no significant change and is in sinus rhythm. Elevated troponin could be related to end-stage renal disease. ? Echo showing EF 60-65% and Grade I diastolic dysfunction and pericardial effusion.?We continued Plavix, Crestor and Toprol. Had a heart catheterization in June of 2022, with no intervention. CXR clear. Chest pain felt to be non cardiac. Patient has end-stage renal disease on peritoneal dialysis.? Nephrology was consulted.? Given her abdominal pain, peritoneal fluid was cultured.? Gram stain reveals no organisms or white blood cells but drawn after abx given.? Peritoneal culture NGTD. Blood pressure was soft at times and medications adjusted. A1c 11.4 in June.? The patient's blood glucose monitored with AccuCheks covering with sliding scale.? Hypoglycemia protocol was available as needed.?Abdominal pain felt?related to pyelonephritis and/or peritonitis.?Plan for peritoneal abx per glass engraver. Patient feels better. Still with abdominal pain. She overall did well and was discharged home on 10/23/22. Status at Discharge Cognitive/behavioral status at discharge: Stable Time Spent with Patient Time attestation: Total time spent providing and/or coordinating discharge services: 35 minutes Time spent: Greater than 30 minutes Exam Narrative: AF 97.3 101/56 98 16 100% ra Gen - NARD Chest - CTA bilaterally, nml RR CV - RRR S1/S2. Tele showing no significant dysrhythmias Abd - Soft, ND, mild LLQ and SP pain. PD cath dressing site is clean, dry and intact Back - minimal left CVA tenderness Ext - No pedal edema Psych - Nml mood and affect Skin - Warm and dry DS: Data Data Completed and Pending Labs on day of discharge: Labs from last 24 hours 10/23/22 10/23/22 10/23/22 12:02 08:19 07:59 WBC RBC Hgb Hct MCV MCH MCHC RDW Plt Count MPV Immature Gran % (Auto) Neut % (Auto) Lymph % (Auto) [place] % (Auto) Eos % (Auto) Baso % (Auto) Lymph # (Auto) [place] # (Auto) Eos # (Auto) Baso # (Auto) Abs Immat Gran (auto) Absolute Neuts (auto) Absolute Nucleated RBC Nucleated RBC % Sodium Potassium Chlor
[2022-10-23] MEDS: GENTAMICIN SULFATE 0.1% CR 15 GM TUBE 1 APPLIC TOPICAL (16:27)
[2022-10-23 17:18] LABS: Glucose Point of Care 148 mg/dl (65-105)
--- NOTE | 2022-10-23 18:03 | PM.IMPN ---
Progress Note: A&P Assessment and Plan (1) Emphysematous pyelonephritis of left kidney: Code(s): N12 - Tubulo-interstitial nephritis, not specified as acute or chronic Status: Acute Assessment and Plan: Patient reports abdominal pain accompanied with nausea and vomiting. CT of the abdomen and pelvis shows emphysema in renal collecting duct related to Pyelonephritis/UTI.? Zofran available for nausea.? Blood cultures are no growth to date. Urine culture growing E coli that is pansensitive.?White count better today. IV access was lost and plan was for discharge today (see below) but unable to arrange. She was changed to cefdinir so will continue this for now. Continue to follow.? (2) Peritonitis associated with peritoneal dialysis: Code(s): T85.71XA - Infection and inflammatory reaction due to peritoneal dialysis catheter, initial encounter Status: Acute Assessment and Plan: Abdominal pain initially felt related to the UTI and pyelonephritis. Peritoneal fluid was not collected on admission. Patient was already on antibiotics when peritoneal fluid was collected. Gram stain reveals no organisms or white blood cells.? Peritoneal culture negative to date. Patient clinically is improving and it was decided to proceed with full treatment for peritonitis. This is being managed by Nephrology. Patient was supposed to receive a dose of vancomycin earlier today but this could not be arranged. Patient's discharge was held with plans for peritoneal dialysis with vancomycin this evening and home tomorrow. Further outpatient vancomycin treatment to be arranged by Nephrology. Diflucan added with plans for a 2 week course. (3) Elevated troponin: Code(s): R77.8 - Other specified abnormalities of plasma proteins Status: Acute Assessment and Plan: Troponin 0.119 and flat. EKG shows no significant change and is in sinus rhythm. Elevated troponin could be related to end-stage renal disease. ? Echo with EF 60-65%, Grade I diastolic dysfunction and small pericardial effusion (chronic).? Continue Plavix, Crestor and Toprol. Okay to stop tele (4) Coronary artery disease: Code(s): I25.10 - Atherosclerotic heart disease of [place] coronary artery without angina pectoris Status: Acute Assessment and Plan: Had a heart catheterization in June of 2022, with no intervention. CXR clear. Chest pain felt to be non cardiac. Continue current medical management. (5) ESRD on peritoneal dialysis: Code(s): N18.6 - End stage renal disease; Z99.2 - Dependence on renal dialysis Status: Acute Assessment and Plan: Patient has ESRD on peritoneal dialysis.? Nephrology consulted and appreciate their input.? Given her abdominal pain, peritonitis was considerd (as above).? Potassium 2.7.?Anion gap metabolic acidosis resolved. Adjustments to her fluid per nephrology recommendations (6) Essential (primary) hypertension: Code(s): I10 - Essential (primary) hypertension Status: Chronic Assessment and Plan: Patient's blood pressure was reviewed on 10/23 Blood pressure remains well controlled. Will continue current medications with Toprol. Continue to hold her Norvasc and Lasix. Resume when able? (7) Diabetes 1.5, managed as type 2: Code(s): E13.9 - Other specified diabetes mellitus without complications Status: Acute Assessment and Plan: A1c 11.4 in June.? The patient's blood glucose was reviewed on 10/23 Glucose remains well controlled.? Continue AccuCheks covering with sliding scale.? Hypoglycemia protocol available as needed.? Continue to follow (8) Abdominal pain: Code(s): R10.9 - Unspecified abdominal pain Status: Acute Assessment and Plan: Related to pyelonephritis and possibly peritonitis.? As above (9) UTI (urinary tract infection): Qualifiers: Hematuria presence: with hematuria Urinary tract
[2022-10-23 20:37] LABS: Glucose Point of Care 208 mg/dl (65-105)
[2022-10-24] VITALS (7 sets, daily range): BP systolic 98–114; BP diastolic 58–72; PULSE 73–88; RESP 16–20; TEMP 36.4–36.6; O2SAT 98–99
[2022-10-24 06:08] LABS: Hematocrit 41.6 % (37.0-47.0); Hemoglobin 13.7 g/dL (12.0-15.0); Mean Corpuscular HGB Conc 32.9 g/dl (32-36); Mean Corpuscular Hemoglobin 30.4 pg (26-34); Mean Corpuscular Volume 92.4 fl (80-100); Mean Platelet Volume 10.3 fl (7.4-10.4); Platelet Count Result 231 k/mm3 (150-375); Red Cell Distribution Width 15.7 % (11.5-14.5); White Blood Count 14.3 K/mm3 (4.5-10.0)
[2022-10-24 06:32] LABS: Albumin Level 3.4 g/dL (3.5-5.1); Anion Gap 11 mmol/L (8-16); Blood Urea Nitrogen 43 mg/dL (7-17); Calcium 8.8 mg/dL (8.4-10.2); Carbon Dioxide 24 mmol/L (22-30); Chloride 99 mmol/L (98-107); Estimated CRCL calculation 5 ml/min; Estimated Glomerular Filt Rate 4; Glucose 148 mg/dL (65-110); Phosphorus 6.4 mg/dL (2.5-4.5); Potassium 3.2 mmol/L (3.4-5.0); Sodium 134 mmol/L (137-145)
[2022-10-24] MEDS: CEFDINIR 300 MG CAPSULE PO (08:29)
[2022-10-24] MEDS: GABAPENTIN 300 MG CAPSULE PO ×2 (08:29→12:08)
[2022-10-24] MEDS: CALCIUM ACETATE 667 MG TABLET 1334 MG PO ×2 (08:29→12:07)
[2022-10-24] MEDS: PANTOPRAZOLE 40 MG TABLET PO (08:29)
[2022-10-24] MEDS: METOPROLOL SUCCINATE EXT REL 50 MG TABCR PO (08:30)
[2022-10-24] MEDS: FLUCONAZOLE 100 MG TABLET PO (08:30)
[2022-10-24] MEDS: ROSUVASTATIN 10 MG TABLET PO (08:30)
[2022-10-24] MEDS: MAGNESIUM OXIDE 400 MG TABLET PO (08:30)
[2022-10-24] MEDS: CLOPIDOGREL BISULFATE 75 MG TABLET PO (08:30)
[2022-10-24] MEDS: GENTAMICIN SULFATE 0.1% CR 15 GM TUBE 1 APPLIC TOPICAL ×2 (08:31→12:08)
[2022-10-24] MEDS: TOLNAFTATE 1% POWDER 45 GM BTL 1 APPLIC TOPICAL ×2 (08:31→12:08)
--- NOTE | 2022-10-24 10:31 | PM.PNNEP ---
Progress Note: A&P Assessment and Plan (1) ESRD on peritoneal dialysis: Code(s): N18.6 - End stage renal disease; Z99.2 - Dependence on renal dialysis Status: Acute Assessment and Plan: the patient has end-stage renal disease. This is most likely due to hypertension and diabetes. She also probably has vascular disease. She has been on dialysis for about 3 years. Her doctor is Dr. Chirstopher at [place]. (2) Abdominal pain: Code(s): R10.9 - Unspecified abdominal pain Status: Acute Assessment and Plan: The patient has significant abdominal discomfort. Also has nausea and vomiting and diarrhea. peritoneal fluid showed only [address] was negative. Cultures Negative so far. At this point looks like this is just urinary tract infection but is not entirely clear. I will discuss with the Nephrology group that takes care of her as an outpatient. We do not really have any evidence of peritonitis as her fluid was clear as soon as I sought the patient says that her fluid was not cloudy at home. She did get a dose of IP vancomycin today so if the night custodian wants to continue treatment for peritonitis then she would be due on Thursday (3) UTI (urinary tract infection): Qualifiers: Hematuria presence: with hematuria Urinary tract infection type: acute cystitis Qualified Code(s): N30.01 - Acute cystitis with hematuria Code(s): N39.0 - Urinary tract infection, site not specified Status: Acute Assessment and Plan: The patient has pyuria. Urine culture shows E coli. She is on Omnicef. She is on Diflucan to prevent fungal infection. (4) Hypertension associated with type 2 diabetes mellitus: Code(s): E11.59 - Type 2 diabetes mellitus with other circulatory complications; I15.2 - Hypertension secondary to endocrine disorders Status: Acute Assessment and Plan: Blood pressure is much better. Probably since she is in less pain (5) Mixed diabetic hyperlipidemia associated with type 2 diabetes mellitus: Code(s): E11.69 - Type 2 diabetes mellitus with other specified complication; E78.2 - Mixed hyperlipidemia Status: Acute Assessment and Plan: Hospitalist to manage this. 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 (7) Coronary artery disease: Code(s): I25.10 - Atherosclerotic heart disease of [place] coronary artery without angina pectoris Status: Acute Assessment and Plan: No chest pain Subjective Date/time seen: 10/24/22 10:31 Interval history: Patient feels better today. More nausea. Belly pain improved. She is on peritoneal dialysis. Her fluid is clear. There were no alarms last night she says. She was seen at 9:00 a.m. Exam Narrative: WDWN in NAD skin no rash head ncat lungs clear cor reg no rub or gallop abd BS+ soft. now and nontender ext no edema. Objective Data Vital Signs Vital Signs: Vital Signs - 24 hr 10/23/22 12:00 10/23/22 12:00 10/23/22 16:00 Temperature 97.3 F L Pulse Rate 98 Respiratory Rate 16 Blood Pressure 101/56 L Pulse Oximetry 100 100 100 Oxygen Delivery Room Air Room Air 10/23/22 16:33 10/23/22 16:00 10/23/22 14:00 Temperature 97.8 F 97.5 F L Pulse Rate 78 89 102 H Respiratory Rate 16 18 Blood Pressure 124/76 107/62 Pulse Oximetry 98 Oxygen Delivery Room Air 10/23/22 18:00 10/23/22 12:00 10/23/22 16:00 Temperature Pulse Rate 89 99 93 Respiratory Rate Blood Pressure Pulse Oximetry Oxygen Delivery 10/23/22 20:00 10/23/22
[2022-10-24 12:09] LABS: Glucose Point of Care 171 mg/dl (65-105)
[2022-10-24 12:09] LABS: Glucose Point of Care 182 mg/dl (65-105)
--- NOTE | 2022-10-24 12:12 | PM.DS ---
DS: Admitting Diagnosis Discharge Date 10/24/22 Admitting Diagnosis Abdominal pain DS: Discharge Diagnosis Discharge Diagnosis (1) Emphysematous pyelonephritis of left kidney: Code(s): N12 - Tubulo-interstitial nephritis, not specified as acute or chronic Status: Acute (2) Peritonitis associated with peritoneal dialysis: Code(s): T85.71XA - Infection and inflammatory reaction due to peritoneal dialysis catheter, initial encounter Status: Acute (3) Elevated troponin: Code(s): R77.8 - Other specified abnormalities of plasma proteins Status: Acute (4) Coronary artery disease: Code(s): I25.10 - Atherosclerotic heart disease of [place] coronary artery without angina pectoris Status: Acute (5) ESRD on peritoneal dialysis: Code(s): N18.6 - End stage renal disease; Z99.2 - Dependence on renal dialysis Status: Acute (6) Essential (primary) hypertension: Code(s): I10 - Essential (primary) hypertension Status: Chronic (7) Diabetes 1.5, managed as type 2: Code(s): E13.9 - Other specified diabetes mellitus without complications Status: Acute (8) Abdominal pain: Code(s): R10.9 - Unspecified abdominal pain Status: Acute (9) UTI (urinary tract infection): Qualifiers: Hematuria presence: with hematuria Urinary tract infection type: acute cystitis Qualified Code(s): N30.01 - Acute cystitis with hematuria Code(s): N39.0 - Urinary tract infection, site not specified Status: Acute DS: Summary Hospital Course Reason for hospitalization: 67yo female with ESRD here for abdominal pain and found to have left pyelonephritis and possibly peritonitis. Please see H&P for details Hospital Course: Patient reported abdominal pain accompanied with nausea and vomiting. CT of the abdomen and pelvis shows emphysema in renal collecting duct related to Pyelonephritis/UTI.?She was started on Rocephin. Blood cultures are no growth to date. Urine culture growing E coli that was pansensitive.?Abdominal pain initially felt related to the UTI/pyelonephritis and possibly from peritonitis.? Peritoneal fluid was not collected on admission.? Patient was already on antibiotics when peritoneal fluid was collected. Gram stain reveals no organisms or white blood cells.? Peritoneal culture (10/21) negative to date.? Patient clinically is improving and it was decided to proceed with full treatment for peritonitis.? This was managed by Nephrology with intraperitoneal abx. Diflucan added with plans for a 2 week course. Troponin 0.119 and flat. EKG shows no significant change and is in sinus rhythm. Echo with EF 60-65%, Grade I diastolic dysfunction and small pericardial effusion (chronic). Had a heart catheterization in June of 2022, with no intervention required. Elevated troponin could be related to end-stage renal disease. We continued Plavix, Crestor and Toprol. She had clinical improvement. She still having abdominal pain but no back pain. She overall did well and was discharged home on 10/24/22. Status at Discharge Cognitive/behavioral status at discharge: Stable Time Spent with Patient Time attestation: Total time spent providing and/or coordinating discharge services: 34 minutes Time spent: Greater than 30 minutes Exam Narrative: AF 97.5 114/66 86 16 98% ra Gen - NARD Chest - CTA bilaterally, nml RR CV - RRR S1/S2. Tele showing no significant dysrhythmias Abd - Soft, ND, mild difuse pain but no guarding. PD cath dressing site is clean, dry and intact Ext - No pedal edema Psych - Nml mood and affect Skin - Warm and dry DS: Data Data Completed and Pending Labs on day of discharge: Labs from last 24 hours 10/24/22 10/24/22 10/24/22 11:53 07:53 05:26 WBC RBC Hgb Hct MCV MCH MCHC RDW Plt Count MPV Sodium 134 L Potassium 3.2 L Chloride 99 Carbon Dioxide 24 Anion G
--- NOTE | 2022-10-29 09:36 | PC.NURSE ---
Blood cx are negative. Peritoneal fluid cx is negative. Wound culture being treated by Oxacillin, which is susceptible. Spoke with Dr. Coulter.
== END 2022-10-24 13:50 | disposition home or self-care (01) ==
LOC: ANHED 10-21 03:44 → ANHIMU 10-21 16:08 → ANH3MEDSUR 10-28 10:48 → ANHIMU 10-28 10:48
PROVIDERS: Internal Medicine Nephrology; Nurse Practitioner; Physician Assistant; Admitting Provider Internal Medicine; Emergency Provider Emergency Medicine; PCP Family Medicine; Visit Provider Internal Medicine
DX: N12 Tubulo-interstitial nephritis, not specified as acute or chronic (principal); T85.71XA Infection and inflammatory reaction due to peritoneal dialysis catheter, initial encounter; R77.8 Other specified abnormalities of plasma proteins; I25.10 Atherosclerotic heart disease of native coronary artery without angina pectoris; R11.2 Nausea with vomiting, unspecified; N20.0 Calculus of kidney; R10.30 Lower abdominal pain, unspecified; K65.9 Peritonitis, unspecified; B95.61 Methicillin susceptible Staphylococcus aureus infection as the cause of diseases classified elsewhere; R53.1 Weakness; F41.9 Anxiety disorder, unspecified; M43.22 Fusion of spine, cervical region; M54.12 Radiculopathy, cervical region; M54.41 Lumbago with sciatica, right side; I12.0 Hypertensive chronic kidney disease with stage 5 chronic kidney disease or end stage renal disease; E11.22 Type 2 diabetes mellitus with diabetic chronic kidney disease; N18.6 End stage renal disease; E11.65 Type 2 diabetes mellitus with hyperglycemia; E11.59 Type 2 diabetes mellitus with other circulatory complications; Z99.2 Dependence on renal dialysis; N39.0 Urinary tract infection, site not specified; R07.9 Chest pain, unspecified; B96.20 Unspecified Escherichia coli [E. coli] as the cause of diseases classified elsewhere; Z20.822 Contact with and (suspected) exposure to COVID-19; R20.0 Anesthesia of skin; E78.5 Hyperlipidemia, unspecified; R82.90 Unspecified abnormal findings in urine; I73.9 Peripheral vascular disease, unspecified; R51.9 Headache, unspecified; R42 Dizziness and giddiness; R94.31 Abnormal electrocardiogram [ECG] [EKG]; M47.817 Spondylosis without myelopathy or radiculopathy, lumbosacral region; F17.210 Nicotine dependence, cigarettes, uncomplicated; F12.90 Cannabis use, unspecified, uncomplicated; E66.01 Morbid (severe) obesity due to excess calories; Z68.38 Body mass index [BMI] 38.0-38.9, adult; I51.89 Other ill-defined heart diseases; Z79.1 Long term (current) use of non-steroidal anti-inflammatories (NSAID); Z79.4 Long term (current) use of insulin; Z79.02 Long term (current) use of antithrombotics/antiplatelets; Z79.891 Long term (current) use of opiate analgesic; Z79.899 Other long term (current) drug therapy; Z82.49 Family history of ischemic heart disease and other diseases of the circulatory system
CPT/HCPCS: 36415; 71045; 74176; 80053; 80069; 80202; 81001; 82010; 82948; 83036; 83605; 83690; 83735; 84100; 84484; 85025; 85027; 87040; 87070; 87075; 87077; 87086; 87186; 87205; 87636; 89051; 90945; 93005; 93306; 96361; 96365; 96366; 96367; 96372; 96375; 96376; 99285; A9270; C9113; G0378; J0696; J0780; J1170; J1885; J2270; J2405; J2765; J3250; J3370; J7030; J7040